=== PATIENT | female | born 1945 | race Caucasian/White ===

== ENCOUNTER 2017-04-28 10:29 | Emergency (ER) | payer MEDICARE, BC ==
[~2017-04-28] VITALS: Ht 152.4 cm; Wt 61.7 kg
[~2017-04-28 10:29] MED LIST: DULERA 200 MCG/13 GM; LOSARTAN POTAS100 MG PO; OMEPRAZOLE20 M1 PO; PROAIR HFA INH8.5 GM; VERAPAMIL ER120 M1 PO
[2017-04-28] MEDS ORDERED: DEXAMETHASONE SOD PHOS 10 MG/1 ML VIAL INJ ONE (11:30)
[2017-04-28] MEDS ORDERED: ALBUTEROL/IPRATROPIUM 3 ML NEB NEB ONE (11:30)
[2017-04-28] MEDS ORDERED: TRAMADOL HCL 50 MG TAB PO ONE (11:30)
[2017-04-28] MEDS ORDERED: KETOROLAC TROMETHAMINE 10 MG TAB PO ONE (11:30)
--- NOTE | 2017-04-28 12:29 | Diagnostic Imaging Report ---
CORRECTION Corrected on: 04/28/2017; Dictated by: Efrain Vicente M.D. on 04/28/2017 at 12:40 Electronically approved by: Efrain Vicente M.D. on 04/28/2017 at 12:40 PROCEDURE:CLAVICLE LEFT INDICATION:Status post fall, left-sided pain COMPARISON:DX, CHEST SINGLE (NOT PORTABLE), 10/24/2012, 13:33. FINDINGS: Acute, displaced oblique fracture of the mid clavicular diaphysis, with inferior displacement of the distal fracture fragment by approximately one shaft width. No definite a.c. separation. Glenohumeral joint is unremarkable. Decreased pulmonary station. Visualized portion of the left upper lobe is clear. CONCLUSION: 1. Acute displaced oblique fracture of the mid clavicular diaphysis with inferior displacement of the distal fracture fragment by approximately one shaft width. 2. Glenohumeral joint is unremarkable. 3. Generalized osteopenia. Efrain Vicente M.D. Dictated by: Efrain Vicente M.D. on 04/28/2017 at 12:37 Electronically approved by: Efrain Vicente M.D. on 04/28/2017 at 12:37
--- NOTE | 2017-04-28 12:31 | Diagnostic Imaging Report ---
PROCEDURE: Left shoulder films INDICATION: Status post fall, left-sided pain COMPARISON: DX, CHEST SINGLE (NOT PORTABLE), 10/24/2012, 13:33. FINDINGS: Acute, displaced oblique fracture of the mid clavicular diaphysis, with inferior displacement of the distal fracture fragment by approximately one shaft width. No definite a.c. separation. Glenohumeral joint is unremarkable. Decreased pulmonary station. Visualized portion of the left upper lobe is clear. CONCLUSION: 1. Acute displaced oblique fracture of the mid clavicular diaphysis with inferior displacement of the distal fracture fragment by approximately one shaft width. 2. Glenohumeral joint is unremarkable. 3. Generalized osteopenia. Efrain Vicente M.D. Dictated by: Efrain Vicente M.D. on 04/28/2017 at 12:40 Electronically approved by: Efrain Vicente M.D. on 04/28/2017 at 12:40
--- NOTE | 2017-04-28 12:36 | Diagnostic Imaging Report ---
PROCEDURE:X-RAY UNILATERAL RIBS WITH CHEST X-RAY COMPARISON:Patients [facility], DX, CHEST SINGLE (NOT PORTABLE), 10/24/2012, 13:33. INDICATIONS:FALL AND ANTERIOR LEFT SIDE PAIN FINDINGS: BONES:Decreased mineralization. No acute, displaced rib fracture or dislocation. SOFT TISSUES:Negative. OTHER:Mild coarsening of the interstitial markings and linear scarring, predominantly in the upper lobes, which is slightly more conspicuous than on prior exam and likely reflect COPD changes. No consolidation or effusion. Cardiac silhouette is unremarkable. Pulmonary vasculature is normal. Atherosclerotic calcification of the aortic arch. CONCLUSION: No acute, displaced rib fracture or dislocation. Decreased mineralization. COPD changes. Efrain Vicente M.D. Dictated by: Efrain Vicente M.D. on 04/28/2017 at 12:44 Electronically approved by: Efrain Vicente M.D. on 04/28/2017 at 12:44
[2017-04-28] MEDS ORDERED: ULTRAM 50MG50 MG PO (13:14)
[2017-04-28] MEDS ORDERED: MOBIC15 MG PO (13:14)
[2017-04-28 13:41] VITALS: BP 176/91
== END 2017-04-28 16:16 | disposition home or self-care (01) ==
LOC: ER 10:29
DX: S42.022A Displaced fracture of shaft of left clavicle, initial encounter for closed fracture (principal); S29.8XXA Other specified injuries of thorax, initial encounter; W01.0XXA Fall on same level from slipping, tripping and stumbling without subsequent striking against object, initial encounter; Y92.008 Other place in unspecified non-institutional (private) residence as the place of occurrence of the external cause
CPT/HCPCS: 71101; 73000; 73030; 94640; 99283; J1100

== ENCOUNTER 2018-11-03 20:29 | Inpatient (IN) | payer MEDICARE, BC ==
[~2018-11-03] VITALS: Ht 152.4 cm; Wt 59.4 kg
[~2018-11-03 20:29] MED LIST changes: +MOBIC15 MG PO; +ULTRAM 50MG50 MG PO
--- OUTSIDE RECORDS SUMMARY | 2018-11-03 20:31 | XMS REPORT ---
[facility] Address Unknown Phone Unavailable Care Team Providers Care Gettering Operator Name Role Phone Nisha ARSHAD Unavailable Unavailable Problems This patient has no known problems. Allergies, Adverse Reactions, Alerts This patient has no known allergies or adverse reactions. Medications This patient has no known medications. Results Test Description Test Time Test Comments Text Results Atomic Results Result Comments CLAVICLE LEFT [place] [address] Patient Name: HARRIS FREEDMAN MR #: [id number] : 1945 Age/Sex: 71/F Req #: [id number] Adm Physician: Ordered by: MAUREEN ARSHAD MD Report #: [id number] Location: ER Room/Bed: Procedure: [id number] DX/CLAVICLE LEFT Exam Date: 04/28/17 Exam Time: 1150 REPORT STATUS: Signed CORRECTION Corrected on: 04/28/2017; Dictated by: Puja Frost M.D. on 04/28/2017 at 12:40 Electronically approved by: Puja Frost M.D. on 04/28/2017 at 12:40 PROCEDURE: CLAVICLE LEFT INDICATION: Status post fall, left-sided pain COMPARISON: DX, CHEST SINGLE (NOT PORTABLE), 10/24/2012, 13:33. FINDINGS: Acute, displaced oblique fracture of the mid clavicular diaphysis, with inferior displacement of the distal fracture fragment by approximately one shaft width. No definite a.c. separation. Glenohumeral joint is unremarkable. Decreased pulmonary station. Visualized portion of the left upper lobe is clear. CONCLUSION: 1. Acute displaced oblique fracture of the mid clavicular diaphysis with inferior displacement of the distal fracture fragment by approximately one shaft width. 2. Glenohumeral joint is unremarkable. 3. Generalized osteopenia. Puja Frost M.D. Dictated by: Puja Frost M.D. on 04/28/2017 at 12:37 Electronically approved by: Puja Frost M.D. on 04/28/2017 at 12:37 Dictated By: PUJA FROST MD 1240 Transcribed By: JASS on 04/28/17 1240 COPY TO: MAUREEN ARSHAD MD SHOULDER LEFT COMPLETE [place] [address] Patient Name: HARRIS FREEDMAN MR #: [id number] : 1945 Age/Sex: 71/F Req #: [id number] Adm Physician: Ordered by: MAUREEN ARSHAD MD Report #: [id number] Location: ER Room/Bed: Procedure: [id number] DX/SHOULDER LEFT COMPLETE Exam Date: 04/28/17 Exam Time: 1150 REPORT STATUS: Signed PROCEDURE: Left shoulder films INDICATION: Status post fall, left-sided pain COMPARISON: DX, CHEST SINGLE (NOT PORTABLE), 10/24/2012, 13:33. FINDINGS: Acute, displaced oblique fracture of the mid clavicular diaphysis, with inferior displacement of the distal fracture fragment by approximately one shaft width. No definite a.c. separation. Glenohumeral joint is unremarkable. Decreased pulmonary station. Visualized portion of the left upper lobe is clear. CONCLUSION: 1. Acute displaced oblique fracture of the mid clavicular diaphysis with inferior displacement of the distal fracture fragment by approximately one shaft width. 2. Glenohumeral joint is unremarkable. 3. Generalized osteopenia. Puja Frost M.D. Dictated by: Puja Frost M.D. on 04/28/2017 at 12:40 Electronically approved by: Puja Frost M.D. on 04/28/2017 at 12:40 Dictated By: PUJA FROST MD 1240 Transcribed By: JASS on 04/28/17 1240 COPY TO: MAUREEN ARSHAD MD W/CXR [place] [address] Patient Name: HARRIS FREEDMAN MR #: [id number] : 1945 Age/Sex: 71/F Req #: [id number] Adm Physician: Ordered by: MAUREEN ARSHAD MD Report #: [id number] Location: ER Room/Bed: Procedure: [id number] DX/RIBJohn UNILAT W/CXR Exam Date: 04/28/17 Exam Time: 1150 REPORT STATUS: Signed PROCEDURE: X-RAY UNILATERAL RIBS WITH CHEST X-RAY COMPARISON: [facility], DX, CHEST SINGLE (NOT PORTABLE), 10/24/2012, 13:33. INDICATIONS: FALL AND ANTERIOR LEFT SIDE PAIN FINDINGS: BONES: Decreased mineralization. No acute, displaced rib fracture or dislocation. SOFT TISSUES: Negative. OTHER: Mild coarsening of the interstitial markings and linear scarring, predominantly in the upper lobes, which is slightly more conspicuous than on prior exam and likely reflect COPD changes. No consolidation or effusion. Cardiac silhouette is unremarkable. Pulmonary vasculature is normal. Atherosclerotic calcification of the aortic arch. CONCLUSION: No acute, displaced rib fracture or dislocation. Decreased mineralization. COPD changes. Puja Frost M.D. Dictated by: Puja Frots M.D. on 04/28/2017 at 12:44 Electronically approved by: Puja Frost M.D. on 04/28/2017 at 12:44 Dictated By: PUJA FROST MD 1244 Transcribed By: JASS on 04/28/17 1244 COPY TO: MAUREEN ARSHAD MD
[2018-11-03] MEDS ORDERED: ASPIRIN 81 MG CHEW TAB PO ONE (20:45)
--- NOTE | 2018-11-03 20:52 | NUR ---
RADIOLOGY AT BEDSIDE FOR CXR AT THIS TIME.
[2018-11-03 21:25] LABS: BASOPHILS % 0.7 % (0.0-1.0); EOSINOPHILS # (AUTO) 0.1 (0.0-0.4); HEMATOCRIT 48.4 % (34.2-44.1); HEMOGLOBIN 16.9 g/dL (12.0-16.0); LYMPHOCYTES # (AUTO) 1.1 (1.0-3.2); LYMPHOCYTES % 17.7 % (18.0-39.1); MEAN CORPUSCULAR HEMOGLOBIN 33.5 pg (28-32); MEAN CORPUSCULAR HGB CONC 34.9 g/dL (31-35); MEAN CORPUSCULAR VOLUME 95.8 fL (81-99); MONOCYTES # (AUTO) 0.7 (0.2-0.8); NEUTROPHILS # (AUTO) 4.2 (2.1-6.9); NEUTROPHILS % 69.4 % (38.7-80.0); PLATELET COUNT 202 x10e3/uL (140-360); RED BLOOD COUNT 5.05 x10e6/uL (3.6-5.1); RED CELL DISTRIBUTION WIDTH 12.3 % (11.7-14.4)
--- NOTE | 2018-11-03 21:25 | Diagnostic Imaging Report ---
EXAMINATION: CHEST SINGLE (PORTABLE) INDICATION: COPD. COMPARISON: None FINDINGS: TUBES and LINES: None. LUNGS: Lungs are well inflated. There are bibasilar atelectasis. There is mild prominence of the central pulmonary vasculature, consistent with pulmonary venous congestion. PLEURA: Small right and trace left pleural effusions. No pneumothorax. HEART AND MEDIASTINUM: Cardiac size is mildly enlarged. There are atherosclerotic calcifications within the aorta. BONES AND SOFT TISSUES: No acute osseous lesion. Remote displaced left clavicle fracture. UPPER ABDOMEN: No free air under the diaphragm. IMPRESSION: Mild bilateral pulmonary venous congestion. Bilateral pleural effusions. Signed by: Dr. Balaji Valencia M.D. on 11/03/2018 9:22 PM
[2018-11-03 21:44] LABS: INR 0.84
[2018-11-03 21:54] LABS: ALANINE AMINOTRANSFERASE 18 IU/L (0-55); ALBUMIN 3.1 g/dL (3.5-5.0); ALBUMIN/GLOBULIN RATIO 0.9 (0.8-2.0); ALKALINE PHOSPHATASE 57 IU/L (40-150); ANION GAP 13.2 mmol/L (8-16); BLOOD UREA NITROGEN 9 mg/dL (7-26); BUN/CREATININE RATIO 13 (6-25); CALCIUM 8.7 mg/dL (8.4-10.2); CARBON DIOXIDE 29 mmol/L (22-29); CHLORIDE 85 mmol/L (98-107); CREATINE KINASE 89 IU/L (29-168); CREATININE, SERUM 0.72 mg/dL (0.57-1.11); EST GLOMERULAR FILTRATION RATE > 60 ML/MIN (60-); GLUCOSE 94 mg/dL (74-118); POTASSIUM 4.2 mmol/L (3.5-5.1); SODIUM 123 mmol/L (136-145)
[2018-11-03] MEDS ORDERED: SODIUM CHLORIDE 0.9% 1000ML 1,000 ML IV SCH (22:15)
[2018-11-03] MEDS: SODIUM CHLORIDE 0.9% 1000ML 1,000 ML IV SCH (23:06)
[2018-11-03] MEDS: METHYLPREDNISOLONE SOD SUCC 40 MG/ML VIAL 1ML IV SCH (23:08)
[2018-11-03] MEDS: ALBUTEROL/IPRATROPIUM 3 ML NEB NEB SCH (23:28)
[2018-11-04] VITALS (10 sets, daily range): BP systolic 131–149; BP diastolic 71–81
[2018-11-04 00:40] LABS: ABG HCO3 29 mmol/L (23-28); ABG PCO2 46 mmHg (41-51); ABG PH 7.41 (7.31-7.41); ABG PO2 113 mmHg (80-105)
[2018-11-04] MEDS ORDERED: BREO (01:08)
[2018-11-04] MEDS ORDERED: PROAIR HFA INH8.5 GM (01:08)
[2018-11-04] MEDS ORDERED: VERAPAMIL ER120 MG (01:08)
[2018-11-04] MEDS ORDERED: TRIAMTERENE-HCTZ1 EA PO (01:08)
[2018-11-04] MEDS ORDERED: OYSCO 500+D TA1 EACH (01:08)
[2018-11-04] MEDS: ALBUTEROL/IPRATROPIUM 3 ML NEB NEB SCH ×6 (03:54→23:15)
[2018-11-04] MEDS: METHYLPREDNISOLONE SOD SUCC 40 MG/ML VIAL 1ML IV SCH ×3 (05:24→22:27)
--- NOTE | 2018-11-04 10:38 | NUR ---
patient reporting that dr. cates is her pulmonolgist that she sees at his office. dr jolly notified, ok to change consultation. dr aryan muse and dr cates made aware
[2018-11-04] MEDS: SODIUM CHLORIDE 0.9% 1000ML 1,000 ML IV SCH (10:47)
[2018-11-04] MEDS ORDERED: ALBUTEROL SULFATE HFA 8GM INHALATION AEROSOL INH PRN (13:00)
[2018-11-04] MEDS ORDERED: CLONIDINE HCL 0.2 MG TAB PO PRN (13:00)
[2018-11-04] MEDS ORDERED: FUROSEMIDE INJ 10 MG/ML 2 ML VIAL IV ONE (13:30)
--- NOTE | 2018-11-04 13:37 | Consultation ---
DATE OF CONSULTATION: Pulmonary Critical Care Consultation CHIEF COMPLAINT: Dyspnea and wheezing. HISTORY OF PRESENT ILLNESS: The patient is a 73-year-old woman. She has a history of chronic COPD. She recently had PFTs, that showed aiqesoox-yb-eyicbk obstructive lung disease. She had a cardiac evaluation about 6 months ago, that was within normal limits. She also has been complaining of continued leg swelling. She had venous Doppler studies as an outpatient, that were negative. She now complains of worsening dyspnea and wheezing. She has some cough, but no fevers. She also continue to have leg edema. When she came to the emergency department, she also had a low sodium. PAST SURGICAL HISTORY: Status post hernia repair. PAST MEDICAL HISTORY: 1. History of chronic obstructive pulmonary disease as noted above. 2. Hypertension. ALLERGIES: NO KNOWN DRUG ALLERGIES. SOCIAL HISTORY: The patient quit smoking. She is not an active drinker. FAMILY HISTORY: Family history is noncontributory. REVIEW OF SYSTEMS: The patient is afebrile. She has no headache. She is not having any neck pain. She has no swollen glands. She has no chest pain. She has no anterior chest pain. She does note wheezing and dyspnea. She has no abdominal pain. There is no nausea or vomiting. She does have leg edema. PHYSICAL EXAMINATION: VITAL SIGNS: The blood pressure is 138/78 and the saturation is 92% on 2 L, respiratory rate is 18, and the pulse is 86. HEENT: Shows no facial swelling or erythema. The nasal mucosa is normal. The oropharynx is normal. LYMPHATIC: Shows no submandibular, cervical, or supraclavicular adenopathy. CARDIAC: Reveals a regular rate and rhythm with normal S1, S2. There are no murmurs or rubs. LUNGS: Auscultation of lungs reveals a prolonged expiratory phase with wheezing. ABDOMEN: Soft, nontender. There is no rebound or guarding. EXTREMITIES: Shows 2 to 3+ leg edema. There is no tenderness. There is some mild erythema. LABORATORY DATA: Sodium is 123 and the BUN to creatinine ratio is normal. The BNP is 624. Laboratory studies are within normal limits. IMPRESSION: 1. Chronic obstructive pulmonary disease with acute exacerbation. 2. Hyponatremia. 3. Chronic leg edema, secondary to elevated right-sided pressures from chronic lung disease. 4. Cellulitis with sepsis, present on admission. PLAN: 1. Continue Solu-Medrol. 2. Antibiotics. 3. Elevate the legs. 4. Continue fluids, because of the elevated BNP and leg swelling. 5. Lasix x1 dose. 6. Echocardiogram. 7. Restart Breo and rescue inhaler at home. MD [place] Conway/DELFIN /[id number]
[2018-11-04] MEDS: DOXYCYCLINE 100MG/NS 100ML 100 ML IV SCH (14:37)
[2018-11-04] MEDS: ZOLPIDEM TARTRATE 5 MG TAB PO PRN (22:27)
--- NOTE | 2018-11-04 22:43 | History and Physical ---
CHIEF COMPLAINT: Ms. Munoz is a complex 73-year-old woman, who presented to the emergency room on the evening of the with a complaint of shortness of breath. HISTORY OF PRESENT ILLNESS: The patient is a poor historian and reports that she has noticed some ankle swelling for some weeks. Her doctors have not told her yet what this problem is and apparently I have ordered some studies. PAST MEDICAL HISTORY: Significant for long-standing COPD. She has known she had lung disease for more than five years. She reports that she smoked for 55 years and stopped smoking in 2008. She reports she then went back intermittently, but now has not smoked in some time. SURGICAL HISTORY: She reports she had remote inguinal hernia repair. HOME MEDICATIONS: For hypertension include losartan and verapamil. She uses inhalers. SOCIAL HISTORY: Smoking history as above. She lives alone. Reports she has a 30-year-old grandson, who lives with her and takes care of research animals at [facility]. REVIEW OF SYSTEMS: CARDIAC: The patient denies any knowledge of any cardiac problem and denies chest pain or palpitations. PHYSICAL EXAMINATION: GENERAL: At this time shows elderly white woman, who is alert and responsive, comfortable. VITAL SIGNS: Blood pressure 138/78, pulse 90 and regular. HEAD, EYES, EARS, NOSE, and THROAT: Otherwise, unremarkable. NECK: No jugular venous distention. No bruits. THORAX: Heart sounds S1, S2 are equal. No murmurs. LUNGS: Bilateral diffuse wheezing. ABDOMEN: Protuberant. Normal bowel sounds. EXTREMITIES: Have 4+ bilateral edema. PERTINENT LABORATORY STUDIES: Show sodium 123, BUN 9, creatinine 0.7, glucose 94, white count 6.0, hemoglobin 16.9. Chest x-ray suggests bilateral pulmonary congestion. BNP 624. ASSESSMENT: 1. Congestive heart failure. 2. Advanced severe chronic obstructive pulmonary disease. 3. Hypertension. PLAN: We will place the patient on diuretics and monitor her serum sodium, which is a nutritional problem. We will obtain echocardiogram and appreciate help from Dr. Rubi for chronic obstructive pulmonary disease management. Prognosis is guarded. MD ANUP Luke/DELFIN /[id number] cc: MD Fritz Ratliff MD
[2018-11-05] VITALS (9 sets, daily range): BP systolic 116–140; BP diastolic 54–88
[2018-11-05] MEDS: DOXYCYCLINE 100MG/NS 100ML 100 ML IV SCH ×2 (01:40→14:07)
[2018-11-05] MEDS: ALBUTEROL/IPRATROPIUM 3 ML NEB NEB SCH ×6 (03:00→22:48)
[2018-11-05 05:37] LABS: HEMATOCRIT 46.8 % (34.2-44.1); LYMPHOCYTES # (AUTO) 0.2 (1.0-3.2); LYMPHOCYTES % 1.9 % (18.0-39.1); MEAN CORPUSCULAR HEMOGLOBIN 32.9 pg (28-32); MEAN CORPUSCULAR HGB CONC 34.2 g/dL (31-35); MEAN CORPUSCULAR VOLUME 96.3 fL (81-99); MONOCYTES # (AUTO) 0.3 (0.2-0.8); MONOCYTES % 2.6 % (4.4-11.3); NEUTROPHILS # (AUTO) 9.4 (2.1-6.9); NEUTROPHILS % 95.1 % (38.7-80.0); PLATELET COUNT 154 x10e3/uL (140-360); RED BLOOD COUNT 4.86 x10e6/uL (3.6-5.1); RED CELL DISTRIBUTION WIDTH 12.3 % (11.7-14.4)
[2018-11-05 05:54] LABS: ALANINE AMINOTRANSFERASE 12 IU/L (0-55); ALBUMIN 2.3 g/dL (3.5-5.0); ALBUMIN/GLOBULIN RATIO 0.8 (0.8-2.0); ALKALINE PHOSPHATASE 48 IU/L (40-150); ANION GAP 11.3 mmol/L (8-16); BLOOD UREA NITROGEN 11 mg/dL (7-26); BUN/CREATININE RATIO 16 (6-25); CALCIUM 8.1 mg/dL (8.4-10.2); CARBON DIOXIDE 28 mmol/L (22-29); CHLORIDE 92 mmol/L (98-107); CREATININE, SERUM 0.68 mg/dL (0.57-1.11); EST GLOMERULAR FILTRATION RATE > 60 ML/MIN (60-); GLUCOSE 164 mg/dL (74-118); POTASSIUM 4.3 mmol/L (3.5-5.1); SODIUM 127 mmol/L (136-145)
[2018-11-05] MEDS: TRIAMTERENE/HCTZ 37.5-25 MG TAB PO SCH (06:09)
[2018-11-05] MEDS: METHYLPREDNISOLONE SOD SUCC 40 MG/ML VIAL 1ML IV SCH ×3 (06:09→21:40)
[2018-11-05 07:49] LABS: LYMPHOCYTES % (MANUAL) 1 % (19-48); MONOCYTES % (MANUAL) 1 % (3.4-9.0); NEUTROPHILS % (MANUAL) 98 % (40-74)
[2018-11-05 07:55] LABS: PLATELET ESTIMATE ADEQUATE; PLATELET MORPHOLOGY COMMENT NORMAL; RBC MORPHOLOGY COMMENT NORMAL
[2018-11-05] MEDS: LOSARTAN POTASSIUM 100 MG TAB PO SCH (09:00)
[2018-11-05] MEDS: VERAPAMIL HCL 120 MG TABSR PO SCH (09:31)
[2018-11-05] MEDS: FUROSEMIDE 40 MG TAB PO SCH (09:32)
[2018-11-05] MEDS: PANTOPRAZOLE SOD 40 MG TABEC PO SCH (09:32)
--- NOTE | 2018-11-05 17:00 | NUR ---
Patient continued to refuse taking the Losartan, even after Dr. Mcclellan explained to patient about the recall only on certain lot numbers.
--- NOTE | 2018-11-05 18:02 | Progress Note ---
DATE: SUBJECTIVE: The patient has less wheezing. She has less dyspnea. She feels better today. PHYSICAL EXAMINATION: VITAL SIGNS: The blood pressure is 130/84 and the saturation is 90%. HEENT: Shows no facial swelling or erythema. CARDIAC: Reveals regular rate and rhythm with a normal S1 and S2. PULMONARY: Auscultation of lungs reveal prolonged expiratory phase bilaterally with minimal wheezing. ABDOMEN: Soft and nontender. There is no rebound or guarding. EXTREMITIES: Show no tenderness. There is some leg edema present, although it is decreased from previously. IMPRESSION: 1. Chronic obstructive pulmonary disease with acute exacerbation. 2. Hyponatremia. 3. Cellulitis with sepsis, present on admission. 4. Acute on chronic right-sided congestive heart failure. PLAN: 1. Wean Solu-Medrol. 2. Continue to wean oxygen. 3. Continue bronchodilators. 4. Continue Lasix. 5. Await results of echocardiogram. 6. Fluid restriction and monitoring of sodium. Fritz Rubi MD [facility]/MODL /[id number]
--- NOTE | 2018-11-05 18:50 | NUR ---
Walking rounds done and report given to oncoming shift. call miller within reach and bed alarm on.
[2018-11-06] VITALS (9 sets, daily range): BP systolic 110–160; BP diastolic 62–93
[2018-11-06] MEDS: ZOLPIDEM TARTRATE 5 MG TAB PO PRN ×2 (01:17→23:44)
[2018-11-06] MEDS: DOXYCYCLINE 100MG/NS 100ML 100 ML IV SCH ×2 (01:26→13:19)
[2018-11-06] MEDS: ALBUTEROL/IPRATROPIUM 3 ML NEB NEB SCH ×6 (04:00→23:05)
[2018-11-06 05:13] LABS: BASOPHILS # (AUTO) 0.1 (0.0-0.1); BASOPHILS % 0.5 % (0.0-1.0); EOSINOPHILS # (AUTO) 0.1 (0.0-0.4); EOSINOPHILS % 0.5 % (0.0-6.0); HEMATOCRIT 49.2 % (34.2-44.1); HEMOGLOBIN 16.9 g/dL (12.0-16.0); LYMPHOCYTES # (AUTO) 0.3 (1.0-3.2); LYMPHOCYTES % 2.4 % (18.0-39.1); MEAN CORPUSCULAR HEMOGLOBIN 33.3 pg (28-32); MEAN CORPUSCULAR HGB CONC 34.3 g/dL (31-35); MEAN CORPUSCULAR VOLUME 96.9 fL (81-99); MONOCYTES # (AUTO) 0.3 (0.2-0.8); MONOCYTES % 2.9 % (4.4-11.3); NEUTROPHILS # (AUTO) 10.2 (2.1-6.9); NEUTROPHILS % 93.2 % (38.7-80.0); PLATELET COUNT 165 x10e3/uL (140-360); RED BLOOD COUNT 5.08 x10e6/uL (3.6-5.1); RED CELL DISTRIBUTION WIDTH 12.4 % (11.7-14.4)
--- NOTE | 2018-11-06 05:27 | NUR ---
Patient connected to BIPAP at this time. Will continue to monitor.
[2018-11-06 05:34] LABS: ALANINE AMINOTRANSFERASE 14 IU/L (0-55); ALBUMIN 2.6 g/dL (3.5-5.0); ALBUMIN/GLOBULIN RATIO 0.8 (0.8-2.0); ALKALINE PHOSPHATASE 49 IU/L (40-150); ANION GAP 14.6 mmol/L (8-16); BLOOD UREA NITROGEN 16 mg/dL (7-26); BUN/CREATININE RATIO 21 (6-25); CALCIUM 8.2 mg/dL (8.4-10.2); CARBON DIOXIDE 28 mmol/L (22-29); CHLORIDE 89 mmol/L (98-107); CREATININE, SERUM 0.77 mg/dL (0.57-1.11); EST GLOMERULAR FILTRATION RATE > 60 ML/MIN (60-); GLUCOSE 156 mg/dL (74-118); POTASSIUM 3.6 mmol/L (3.5-5.1); SODIUM 128 mmol/L (136-145)
[2018-11-06] MEDS: TRIAMTERENE/HCTZ 37.5-25 MG TAB PO SCH (05:43)
--- NOTE | 2018-11-06 06:52 | Diagnostic Imaging Report ---
EXAMINATION: CHEST SINGLE (PORTABLE) INDICATION: ^COPD / PLEURAL EFFUSION COMPARISON: 11/03/2018 FINDINGS: AP view TUBES and LINES: None. LUNGS: Lungs are well inflated. Mild to moderate interstitial edema, slightly increased from prior exam.. PLEURA: No pneumothorax. Moderate size right and small left pleural effusions, increased from prior exam. HEART AND MEDIASTINUM: The cardiac silhouette is partially obscured. BONES AND SOFT TISSUES: No acute osseous lesion. Soft tissues are unremarkable. UPPER ABDOMEN: No free air under the diaphragm. IMPRESSION: Pulmonary edema and bilateral pleural effusions, slightly increased when compared to prior x-ray. Signed by: Dr. Bert Brooks MD on 11/06/2018 6:49 AM
--- NOTE | 2018-11-06 07:07 | NUR ---
Report given to AM nurse Jez,walking round done.
[2018-11-06] MEDS: LOSARTAN POTASSIUM 100 MG TAB PO SCH (08:31)
[2018-11-06] MEDS: METHYLPREDNISOLONE SOD SUCC 40 MG/ML VIAL 1ML IV SCH ×2 (08:31→22:07)
[2018-11-06] MEDS: FUROSEMIDE 40 MG TAB PO SCH (08:31)
[2018-11-06] MEDS: PANTOPRAZOLE SOD 40 MG TABEC PO SCH (08:31)
[2018-11-06] MEDS: VERAPAMIL HCL 120 MG TABSR PO SCH (08:31)
--- NOTE | 2018-11-06 08:31 | NUR ---
Patient placed back on BiPap at this time.
[2018-11-06 08:42] LABS: LYMPHOCYTES % (MANUAL) 4 % (19-48); MONOCYTES % (MANUAL) 2 % (3.4-9.0); NEUTROPHILS % (MANUAL) 94 % (40-74)
[2018-11-06 08:43] LABS: POIKILOCYTOSIS SLIGHT
[2018-11-06 08:44] LABS: ANISOCYTOSIS MODERATE; PLATELET ESTIMATE ADEQUATE; PLATELET MORPHOLOGY COMMENT NORMAL; RBC MORPHOLOGY COMMENT ABNORMAL
--- NOTE | 2018-11-06 10:10 | NUR ---
Patient requesting BiPap be removed at this time and be changed to hiflow O2. Patient made aware of benefits of BiPap but states she needs a break. Patient states she might be discharged today but patient seems to be very short of breath without BiPap.
--- NOTE | 2018-11-06 10:26 | NUR ---
Patient sitting up in chair as requested. Instructed to use call light if she needed anything.
--- NOTE | 2018-11-06 11:04 | NUR ---
Dr. Mcclellan here to see patient. Patient placed back in bed and placed on BiPap at this time.
--- NOTE | 2018-11-06 12:19 | NUR ---
Spoke to [employer] [facility] regarding IR consult and informed that procedure to be done today.
--- NOTE | 2018-11-06 14:56 | NUR ---
PT DISCUSSED IN BARRIER ROUNDS; BILATERAL PE, AND LOWER BILAT SWELLING, THORA CONSULT, ON YADI MED, LASIX, WEAN FROM O2 ON HIGH FLOW 10 LITERS AND BIPAP AT NIGHT, FLUID RESTRICTION, PROJECTED DC FOR 25TH
--- NOTE | 2018-11-06 16:17 | NUR ---
Per Dr. Rubi, no cytology orders needed for thoracentesis. Patient tolerated procedure well and 1050 mL removed. Post cxr ordered per protocol.
--- NOTE | 2018-11-06 16:19 | NUR ---
Okay to remove JIMBO tovare per Dr. Rubi.
--- NOTE | 2018-11-06 17:05 | Diagnostic Imaging Report ---
PROCEDURE: Ultrasound-guided therapeutic thoracentesis Procedural Personnel Attending physician(s): Lita Tavarez MD Fellow physician(s): None Resident physician(s): None Advanced practice provider(s): None Pre-procedure diagnosis: Right pleural effusion Post-procedure diagnosis: Same Indication: Pleural effusion with compromised respiration Additional clinical history: None Complications: No immediate complications. IMPRESSION: Ultrasound-guided thoracentesis with drainage of 1050 mL of serous fluid. Plan: Post-procedural chest radiograph. Resume care by clinical team. PROCEDURE SUMMARY: - Limited thoracic ultrasound - Ultrasound-guided thoracentesis - Additional procedure(s): None PROCEDURE DETAILS: Pre-procedure Consent: Informed consent for the procedure including risks, benefits and alternatives was obtained and time-out was performed prior to the procedure. Preparation: The site was prepared and draped using maximal sterile barrier technique including cutaneous antisepsis. Anesthesia/sedation Level of anesthesia/sedation: No sedation Anesthesia/sedation administered by: Not applicable Limited thoracic ultrasound Limited thoracic ultrasound was performed using a curved transducer. A safe window for thoracentesis was identified. Left hemithorax findings: Not investigated Right hemithorax findings: Moderate pleural effusion Thoracentesis Local anesthesia was administered. The pleural space was accessed under real-time ultrasound guidance and fluid return confirmed position. The fluid was drained. The catheter was removed, and a sterile bandage was applied. Catheter placed: 5F Jamiaeh Post-drainage hemithorax findings: No visible pleural effusion Additional Details Additional description of procedure: None Equipment details: None Specimens removed: Pleural fluid Estimated blood loss (mL): Less than 10 Standardized report: [id number] Attestation Signer name: Lita Tavarez MD I attest that I was present for the entire procedure. I reviewed the stored images and agree with the report as written. Signed by: Lita Tavarez MD on 11/06/2018 5:01 PM
--- NOTE | 2018-11-06 17:08 | Diagnostic Imaging Report ---
EXAMINATION: CHEST SINGLE (PORTABLE) INDICATION: Status post thoracentesis, evaluate for pneumothorax COMPARISON: Chest radiograph of 11/06/2018 FINDINGS: TUBES and LINES: EKG leads overlie the right chest. LUNGS: The lungs are moderately inflated. There is perihilar fullness and indistinctness of the pulmonary vasculature. Patchy bibasilar opacities obscure both hemidiaphragms. PLEURA: Interval decrease in previously moderate right pleural effusion. Small residual bilateral pleural effusions. No pneumothorax. HEART AND MEDIASTINUM: Cardiomediastinal silhouette is stably enlarged. Atherosclerotic calcifications of the thoracic aorta. BONES AND SOFT TISSUES: Old fracture deformity of the left clavicle. No acute fracture or dislocation. UPPER ABDOMEN: No free air under the diaphragm. IMPRESSION: Interval decrease in right pleural effusion status post thoracentesis. No pneumothorax. Small residual bilateral pleural effusions. Unchanged pulmonary edema and cardiomegaly. Signed by: Lita Tavarez MD on 11/06/2018 5:04 PM
--- NOTE | 2018-11-06 17:14 | Progress Note ---
DATE: SUBJECTIVE: The patient just had a thoracentesis done. Over 1000 mL were removed. She notes some improvement in her dyspnea. PHYSICAL EXAMINATION: VITAL SIGNS: Stable. The blood pressure is 125/62 and the saturation is 94%. HEENT: Shows no facial swelling or erythema. The oropharynx is normal. LYMPHATIC: Shows no submandibular, cervical, or supraclavicular adenopathy. CARDIAC: Reveals regular rate and rhythm with normal S1, S2. There are no murmurs or rubs. LUNGS: Auscultation of lungs reveals decreased breath sounds at bases. There is no wheezing. ABDOMEN: Soft, nontender. There is no rebound or guarding. EXTREMITIES: There is 2+ leg edema. IMPRESSION: 1. Acute systolic congestive heart failure. 2. Chronic obstructive pulmonary disease with acute exacerbation. 3. Hyponatremia. 4. Cellulitis with sepsis, present on admission. PLAN: 1. Continue Solu-Medrol and bronchodilators. 2. Status post thoracentesis. 3. Continue Lasix along with afterload reduction and verapamil. Fritz Rubi MD [facility]/MODL /[id number]
--- NOTE | 2018-11-06 19:06 | NUR ---
Walking rounds with Car. Patient resting with no distress.
[2018-11-07] VITALS (9 sets, daily range): BP systolic 118–148; BP diastolic 54–97
[2018-11-07] MEDS: DOXYCYCLINE 100MG/NS 100ML 100 ML IV SCH ×2 (02:35→14:00)
[2018-11-07] MEDS: ALBUTEROL/IPRATROPIUM 3 ML NEB NEB SCH ×6 (03:35→23:00)
[2018-11-07 05:51] LABS: HEMATOCRIT 46.2 % (34.2-44.1); HEMOGLOBIN 16.1 g/dL (12.0-16.0); LYMPHOCYTES # (AUTO) 0.2 (1.0-3.2); LYMPHOCYTES % 2.5 % (18.0-39.1); MEAN CORPUSCULAR HEMOGLOBIN 33.1 pg (28-32); MEAN CORPUSCULAR HGB CONC 34.8 g/dL (31-35); MEAN CORPUSCULAR VOLUME 95.1 fL (81-99); MONOCYTES # (AUTO) 0.2 (0.2-0.8); MONOCYTES % 3.3 % (4.4-11.3); NEUTROPHILS # (AUTO) 5.8 (2.1-6.9); NEUTROPHILS % 93.9 % (38.7-80.0); PLATELET COUNT 145 x10e3/uL (140-360); RED BLOOD COUNT 4.86 x10e6/uL (3.6-5.1); RED CELL DISTRIBUTION WIDTH 12.4 % (11.7-14.4)
[2018-11-07] MEDS: TRIAMTERENE/HCTZ 37.5-25 MG TAB PO SCH (06:03)
[2018-11-07 06:21] LABS: ALANINE AMINOTRANSFERASE 14 IU/L (0-55); ALBUMIN 2.3 g/dL (3.5-5.0); ALBUMIN/GLOBULIN RATIO 0.9 (0.8-2.0); ALKALINE PHOSPHATASE 36 IU/L (40-150); ANION GAP 10.6 mmol/L (8-16); BLOOD UREA NITROGEN 17 mg/dL (7-26); BUN/CREATININE RATIO 26 (6-25); CALCIUM 7.7 mg/dL (8.4-10.2); CARBON DIOXIDE 31 mmol/L (22-29); CHLORIDE 89 mmol/L (98-107); CREATININE, SERUM 0.66 mg/dL (0.57-1.11); EST GLOMERULAR FILTRATION RATE > 60 ML/MIN (60-); GLUCOSE 185 mg/dL (74-118); POTASSIUM 3.6 mmol/L (3.5-5.1); SODIUM 127 mmol/L (136-145)
--- NOTE | 2018-11-07 06:59 | NUR ---
patient endorsed to next shift for continuity of care.
--- NOTE | 2018-11-07 07:10 | NUR ---
Pt received resting in bed. Alert and oriented x4. On BIPAP. Oriented to staff and surroundings. Encouraged to press call miller if help needed. Emotional support given. Pt verbalized understanding of teaching. Will monitor
[2018-11-07] MEDS: VERAPAMIL HCL 120 MG TABSR PO SCH (08:29)
[2018-11-07] MEDS: LOSARTAN POTASSIUM 100 MG TAB PO SCH (08:29)
[2018-11-07] MEDS: METHYLPREDNISOLONE SOD SUCC 40 MG/ML VIAL 1ML IV SCH ×2 (08:29→20:33)
[2018-11-07] MEDS: FUROSEMIDE 40 MG TAB PO SCH (08:29)
[2018-11-07] MEDS: PANTOPRAZOLE SOD 40 MG TABEC PO SCH (08:29)
--- NOTE | 2018-11-07 08:30 | NUR ---
All meds given as ordered. Call miller within reach. Will monitor
--- NOTE | 2018-11-07 09:45 | NUR ---
Pt requesting to sit in recliner. sats 89-90%. Pt stated that it would help her breathe better. Assisted pt into recliner, and sats 80-81%. Pt placed back into bed. BIPAP placed on pt, and sats 99%. Will monitor
[2018-11-07 09:59] LABS: LYMPHOCYTES % (MANUAL) 5 % (19-48); MONOCYTES % (MANUAL) 3 % (3.4-9.0); NEUTROPHILS % (MANUAL) 92 % (40-74); RBC MORPHOLOGY COMMENT NORMAL
[2018-11-07 10:00] LABS: PLATELET ESTIMATE ADEQUATE; PLATELET MORPHOLOGY COMMENT NORMAL
--- NOTE | 2018-11-07 13:37 | Progress Note ---
DATE: SUBJECTIVE: The patient still has some dyspnea on exertion. She still is requiring 8 L of oxygen. She does not complain of chest pain or fevers. PHYSICAL EXAMINATION: VITAL SIGNS: The blood pressure is 119/73. HEENT: No facial swelling or erythema. CARDIAC: Reveals regular rate and rhythm with normal S1 and S2. There are no murmurs or rubs heard. LUNGS: Auscultation of lungs shows prolonged expiratory phase bilaterally. There is no wheezing. ABDOMEN: Soft, nontender. There is no rebound or guarding. EXTREMITIES: There is 1 to 2+ leg edema. IMPRESSION: 1. Bxoyp-si-allrhvz systolic congestive heart failure. 2. Vaoaq-kz-wosjsnd respiratory failure. 3. Hyponatremia. 4. Leg edema. 5. Cellulitis. PLAN: 1. CT scan of the chest with pulmonary angiogram protocol today. 2. Wean oxygen as tolerated. 3. Continue bronchodilators. 4. Continue Solu-Medrol. 5. Continue current cardiac regimen. 6. The patient will need a noninvasive ventilator arranged on discharge. Fritz Rubi MD [facility]/SAKSHIL /[id number]
--- NOTE | 2018-11-07 14:23 | Diagnostic Imaging Report ---
EXAMINATION: CHEST SINGLE (PORTABLE) INDICATION: Dyspnea COMPARISON: Multiple prior chest radiograph, most recently of 11/06/2018 FINDINGS: TUBES and LINES: EKG leads overlie the thorax. LUNGS: The lungs are moderately inflated. There is perihilar fullness and indistinctness of the pulmonary vasculature. There is left basilar opacity silhouetting the left dayron diaphragm. PLEURA: Small left pleural effusion. No substantial right pleural effusion. No pneumothorax. HEART AND MEDIASTINUM: Cardiomediastinal silhouette is stably enlarged. Atherosclerotic calcifications of the thoracic aorta. BONES AND SOFT TISSUES: No acute fracture or dislocation. UPPER ABDOMEN: No free air under the diaphragm. IMPRESSION: Mild pulmonary interstitial edema and unchanged cardiomegaly. Small left pleural effusion. No substantial right pleural effusion. No pneumothorax. Airspace opacity at the left lung base may represent subsegmental atelectasis or alternatively superimposed aspiration and/or pneumonia. Signed by: Lita Tavarez MD on 11/07/2018 2:20 PM
--- NOTE | 2018-11-07 15:03 | NUR ---
Escorted pt to CT chest due to periods of desaturation. Dr. Rubi notified. Order given for VQ scan
--- NOTE | 2018-11-07 15:06 | NUR ---
IV contrast added to Allergy list. Will monitor
--- NOTE | 2018-11-07 21:54 | NUR ---
Patient refused VQ scan vent & perfusion at this time. Patient stated that " I am feeling so tired, I want to sleep at his time and I will do tomorrow morning."
[2018-11-08] MEDS: DOXYCYCLINE 100MG/NS 100ML 100 ML IV SCH ×2 (01:23→13:49)
[2018-11-08] MEDS: ALBUTEROL/IPRATROPIUM 3 ML NEB NEB SCH ×6 (02:45→23:00)
[2018-11-08 04:47] VITALS: BP 143/94
[2018-11-08 05:39] LABS: BASOPHILS % 0.2 % (0.0-1.0); EOSINOPHILS % 0.4 % (0.0-6.0); HEMATOCRIT 50.3 % (34.2-44.1); HEMOGLOBIN 16.9 g/dL (12.0-16.0); LYMPHOCYTES # (AUTO) 0.2 (1.0-3.2); LYMPHOCYTES % 4.3 % (18.0-39.1); MEAN CORPUSCULAR HEMOGLOBIN 32.9 pg (28-32); MEAN CORPUSCULAR HGB CONC 33.6 g/dL (31-35); MEAN CORPUSCULAR VOLUME 97.9 fL (81-99); MONOCYTES # (AUTO) 0.2 (0.2-0.8); MONOCYTES % 4.5 % (4.4-11.3); NEUTROPHILS # (AUTO) 4.3 (2.1-6.9); NEUTROPHILS % 89.8 % (38.7-80.0); PLATELET COUNT 147 x10e3/uL (140-360); RED BLOOD COUNT 5.14 x10e6/uL (3.6-5.1); RED CELL DISTRIBUTION WIDTH 12.6 % (11.7-14.4)
[2018-11-08] MEDS: TRIAMTERENE/HCTZ 37.5-25 MG TAB PO SCH (05:50)
--- NOTE | 2018-11-08 06:50 | NUR ---
Pt received resting in bed. Call miller within reach. Oxygen at 4L nasal cannula ongoing. Will monitor
--- NOTE | 2018-11-08 06:52 | NUR ---
Report given to oncoming LIBRADO Tate. NO issued noted.
[2018-11-08 06:57] LABS: ANION GAP 13.7 mmol/L (8-16); BLOOD UREA NITROGEN 20 mg/dL (7-26); BUN/CREATININE RATIO 27 (6-25); CALCIUM 7.9 mg/dL (8.4-10.2); CARBON DIOXIDE 31 mmol/L (22-29); CHLORIDE 89 mmol/L (98-107); CREATININE, SERUM 0.74 mg/dL (0.57-1.11); EST GLOMERULAR FILTRATION RATE > 60 ML/MIN (60-); GLUCOSE 153 mg/dL (74-118); POTASSIUM 3.7 mmol/L (3.5-5.1); SODIUM 130 mmol/L (136-145)
[2018-11-08 07:15] VITALS: BP 160/93
[2018-11-08] MEDS: PANTOPRAZOLE SOD 40 MG TABEC PO SCH (08:18)
[2018-11-08] MEDS: FUROSEMIDE 40 MG TAB PO SCH (08:18)
[2018-11-08] MEDS: VERAPAMIL HCL 120 MG TABSR PO SCH (08:18)
[2018-11-08] MEDS: LOSARTAN POTASSIUM 100 MG TAB PO SCH (08:18)
[2018-11-08] MEDS: METHYLPREDNISOLONE SOD SUCC 40 MG/ML VIAL 1ML IV SCH ×2 (08:18→20:43)
--- NOTE | 2018-11-08 08:18 | NUR ---
All meds given as ordered. Call miller within reach. Will monitor
[2018-11-08 08:20] LABS: LYMPHOCYTES % (MANUAL) 3 % (19-48); MONOCYTES % (MANUAL) 6 % (3.4-9.0); NEUTROPHILS % (MANUAL) 91 % (40-74); PLATELET ESTIMATE ADEQUATE; PLATELET MORPHOLOGY COMMENT NORMAL; RBC MORPHOLOGY COMMENT NORMAL
[2018-11-08 11:10] VITALS: BP 144/78
--- NOTE | 2018-11-08 13:29 | NUR ---
PT DISCUSSED IN BARRIER ROUNDS;PT ON 4 LITERS NASAL CANULA, VC SCAN TO RULE OUT PE, SODIUM LOW, STILL DESAT TO 75%, AND HGB 16.9
--- NOTE | 2018-11-08 14:20 | Diagnostic Imaging Report ---
Ventilation/perfusion lung scan Clinical Information: 73 F with COPD and hyponatremia with acute onset SOB. Comparison: Chest radiograph 11/07/2018 Discussion: Xenon-133 gas 20 mCi was administered via inhalation. Dynamic images of the lungs in the posterior projection were obtained through single breath, equilibrium, and washout phases. Distribution of tracer activity is irregular throughout the lungs. There are no segmental ventilatory defects. Washout of tracer is markedly delayed throughout both lungs with severe bibasilar air trapping. Perfusion images of the lungs were obtained in multiple projections following intravenous administration of approximately 6.6 mCi of Tc-99m MAA. Distribution of tracer is irregular throughout the lungs. The contours of the lungs are well demarcated. There are no segmental perfusion defects of any size. A small nonsegmental defect is seen in the apicoposterior segment of the left lung, most likely a metallic artifact. The cardiomediastinal silhouette is unremarkable. Impression: Scan findings represent a VERY LOW probability for acute pulmonary embolic disease based on the PIOPED II criteria. Scan evidence of severe obstructive lung disease. Signed by: Dr. Baylee Morgan M.D. on 11/08/2018 2:17 PM
--- NOTE | 2018-11-08 14:30 | NUR ---
VQ scan negative. Will monitor
[2018-11-08 16:30] VITALS: BP 158/59
--- NOTE | 2018-11-08 18:54 | NUR ---
Pt resting in bed. Handoff given to oncoming nurse
--- NOTE | 2018-11-08 19:34 | Progress Note ---
DATE: SUBJECTIVE: The patient feels better than yesterday. She has less dyspnea. She does not complain of chest pain. She has left leg swelling. PHYSICAL EXAMINATION: VITAL SIGNS: The patient is afebrile. The blood pressure is 144/78 and saturation is 97% on 4 L. HEENT: Shows no facial swelling or erythema. CARDIAC: Reveals a regular rate and rhythm with normal S1 and S2. LUNGS: Auscultation of lungs reveals clear breath sounds bilaterally. There is a prolonged expiratory phase. ABDOMEN: Soft, nontender. There is no rebound or guarding. EXTREMITIES: Shows 1 to 2+ leg edema. IMPRESSION: 1. Yzefl-eq-madsuoc systolic congestive heart failure. 2. Tccsu-fg-fhgjidp respiratory failure. 3. Chronic obstructive pulmonary disease. 4. Hyponatremia. 5. Leg edema. PLAN: 1. Wean oxygen, as tolerated. 2. Wean steroids. 3. Continue bronchodilators. 4. Possible discharge home tomorrow. MD [place] Conway/DELFIN /[id number]
[2018-11-08 19:46] VITALS: BP 154/80
[2018-11-08 19:47] VITALS: BP 154/80
[2018-11-09 00:16] VITALS: BP 152/77
[2018-11-09] MEDS: DOXYCYCLINE 100MG/NS 100ML 100 ML IV SCH (01:21)
[2018-11-09] MEDS: ALBUTEROL/IPRATROPIUM 3 ML NEB NEB SCH ×3 (03:00→11:35)
[2018-11-09 04:37] VITALS: BP 140/66
[2018-11-09] MEDS: TRIAMTERENE/HCTZ 37.5-25 MG TAB PO SCH (06:14)
[2018-11-09 07:45] VITALS: BP 140/66
[2018-11-09] MEDS: VERAPAMIL HCL 120 MG TABSR PO SCH (08:13)
[2018-11-09] MEDS: FUROSEMIDE 40 MG TAB PO SCH (08:13)
[2018-11-09] MEDS: METHYLPREDNISOLONE SOD SUCC 40 MG/ML VIAL 1ML IV SCH (08:13)
[2018-11-09] MEDS: PANTOPRAZOLE SOD 40 MG TABEC PO SCH (08:13)
--- NOTE | 2018-11-09 11:05 | NUR ---
Dr. Mcclellan making rounds. Patient may be discharged if okay with Dr. Rubi.
--- NOTE | 2018-11-09 11:05 | NUR ---
IMM SIGNED AND ON CHART COPY LEFT WITH PATIENT GAVE CARD FOR QUESTIONS AND OR CONCERNS.
[2018-11-09 12:00] VITALS: BP 139/83
--- NOTE | 2018-11-09 12:00 | NUR ---
Dr. Rubi making rounds. Per MD patient may be discharged home. Patient has home O2 already.
[2018-11-09] MEDS: LOSARTAN POTASSIUM 100 MG TAB PO SCH (12:15)
[2018-11-09] MEDS ORDERED: LASIX40 MG PO (13:37)
[2018-11-09] MEDS ORDERED: PREDNISONE20 MG PO (13:38)
--- NOTE | 2018-11-09 13:39 | Progress Note ---
DATE: SUBJECTIVE: The patient feels better and is very eager to go home. She has less coughing. She is not complaining of fever or chest pain. PHYSICAL EXAMINATION: VITAL SIGNS: Stable. HEENT: Shows no facial swelling or erythema. The nasal mucosa is normal. CARDIAC: Reveals a regular rate and rhythm with normal S1, S2. There are no murmurs or rubs heard. LUNGS: Auscultation of lungs reveals clear breath sounds bilaterally. There is no wheezing. ABDOMEN: Soft, nontender. There is no rebound or guarding. EXTREMITIES: Show no leg edema or calf tenderness. There is no cyanosis or clubbing. IMPRESSION: 1. Yxrfw-vb-vhfuogj respiratory failure. 2. Chronic obstructive pulmonary disease. 3. Nvdqz-gg-qblvwok systolic congestive heart failure. 4. Hyponatremia. PLAN: 1. Discharge the patient home. 2. Steroid taper. 3. Continue Breo daily with rescue inhaler and nebulizer as needed. 4. The patient has oxygen to a portable concentrator at home and is awaiting a stationary concentrator through [facility] as well. Fritz Rubi MD [facility]/MODL /[id number]
--- NOTE | 2018-11-09 13:42 | NUR ---
PROVIDED PT WITH ROLLING WALKER TO TAKE HOME
--- NOTE | 2018-11-09 14:14 | NUR ---
Patient discharged home with written instructions and prescriptions. CM provided walker for home use. Daughter brought home O2 and will provide ride home. Both patient and daughter verbalized understanding on discharge instructions and follow up care. IV dc'd, cath intact and some dressing applied.
--- NOTE | 2018-11-10 04:53 | Discharge Summary ---
HISTORY: Ms. Munoz is a complex and elderly 73-year-old woman with an end-stage lung disease, who presented on the with shortness of breath requiring CPAP support. HOSPITAL COURSE: The patient had 4+ edema of both legs not completed outpatient evaluation with other doctors. She was given IV Lasix and broad-spectrum antibiotics, doxycycline. She was given bronchodilators and intermittent CPAP support. Echocardiogram showed abnormal left ventricular function, EF 30-35%, mildly dilated right ventricle, right ventricular systolic pressure, estimated of 47 mmHg. The patient made very slow progress with bilateral rhonchi and wheezing. She had a V/Q scan which was low probability. Today, the patient is feeling some better and insisted on being discharged to home. She has completed seven days of antibiotics. She is discharged to add furosemide 40 mg daily as her edema has resolved and she will continue bronchodilators and other medications were ordered by Dr. Rubi. She will follow up with Dr. Rubi, Dr. French as an outpatient. DISCHARGE DIAGNOSES: 1. End-stage lung disease. 2. Congestive heart failure. 3. Hypertension. 4. Possible bronchitis. MD ANUP Luke/DELFIN /[id number] cc: MD Willie Geronimo MD
== END 2018-11-09 15:29 | disposition home or self-care (01) | DRG 871 ==
LOC: ER 20:29 → ERHOLD 22:24 → IMCU 11-04 00:46
PROVIDERS: ADMIT Internal Medicine Cardiovascular Disease; ATTEND Internal Medicine Cardiovascular Disease
PROC: 0W993ZZ Drainage of Right Pleural Cavity, Percutaneous Approach (ICD-10-PCS; principal; 2018-11-03)
PROC: 0W993ZZ Drainage of Right Pleural Cavity, Percutaneous Approach (ICD-10-PCS; 2018-11-06)
DX: A41.9 Sepsis, unspecified organism (principal); I50.23 Acute on chronic systolic (congestive) heart failure; J96.20 Acute and chronic respiratory failure, unspecified whether with hypoxia or hypercapnia; J44.1 Chronic obstructive pulmonary disease with (acute) exacerbation; E87.1 Hypo-osmolality and hyponatremia; L03.116 Cellulitis of left lower limb; L03.115 Cellulitis of right lower limb; J44.0 Chronic obstructive pulmonary disease with (acute) lower respiratory infection; I11.0 Hypertensive heart disease with heart failure; Z88.2 Allergy status to sulfonamides; Z91.041 Radiographic dye allergy status; I44.7 Left bundle-branch block, unspecified; Z87.891 Personal history of nicotine dependence; J20.9 Acute bronchitis, unspecified
CPT/HCPCS: 32555; 36415; 36600; 71045; 74470; 78582; 80048; 80053; 82550; 82553; 82805; 83880; 84484; 85025; 85379; 85610; 93005; 93306; 94640; 94660; 96360; 99285; A9540; A9558; J1940; J2920; J7030

== ENCOUNTER 2019-06-21 14:49 | Inpatient (IN) | payer MEDICARE, BC ==
[~2019-06-21] VITALS: Ht 152.4 cm; Wt 52.2 kg
[~2019-06-21 14:49] MED LIST changes: +BREO; +LASIX40 MG PO; +OYSCO 500+D TA1 EACH; +PREDNISONE20 MG PO; +TRIAMTERENE-HCTZ1 EA PO; +VERAPAMIL ER120 MG
[2019-06-21] MEDS ORDERED: B COMPLEX1 EACH (15:36)
[2019-06-21] MEDS ORDERED: SPIRIVA RESPIMAT4 G1 (15:37)
[2019-06-21] MEDS ORDERED: ASPIRIN 81 MG CHEW TAB PO ONE (16:00)
[2019-06-21] MEDS ORDERED: ALBUTEROL SULF 0.083% NEB SOLN 3 ML NEB NEB STA (16:23)
[2019-06-21] MEDS ORDERED: IPRATROPIUM BROMIDE 0.02% 2.5 ML NEB NEB STA (16:23)
[2019-06-21] MEDS ORDERED: METHYLPREDNISOLONE SOD SUCC 125 MG/2ML VIAL IV STA (16:23)
--- NOTE | 2019-06-21 16:41 | Diagnostic Imaging Report ---
Chest, 1 view, 06/21/2019. History: Severe shortness of breath, COPD. Comparison: 11/07/2018. Findings: The cardiomediastinal silhouette and pulmonary vasculature are prominent with bilateral interstitial opacities as well as blunting of the costophrenic sulci, right greater than left. There are no acute osseous or soft tissue abnormalities. Impression: Findings suggestive of CHF with bibasilar atelectasis and small pleural effusions. Signed by: Heriberto Barber on 06/21/2019 4:39 PM
[2019-06-21 16:46] LABS: BASOPHILS % 0.8 % (0.0-1.0); EOSINOPHILS % 0.6 % (0.0-6.0); HEMATOCRIT 42.3 % (34.2-44.1); HEMOGLOBIN 14.4 g/dL (12.0-16.0); LYMPHOCYTES # (AUTO) 0.9 (1.0-3.2); MEAN CORPUSCULAR HEMOGLOBIN 31.6 pg (28-32); MONOCYTES # (AUTO) 0.5 (0.2-0.8); MONOCYTES % 9.2 % (4.4-11.3); NEUTROPHILS # (AUTO) 3.6 (2.1-6.9); PLATELET COUNT 199 x10e3/uL (140-360); RED BLOOD COUNT 4.55 x10e6/uL (3.6-5.1); RED CELL DISTRIBUTION WIDTH 12.8 % (11.7-14.4)
[2019-06-21 16:55] LABS: INR 0.91; PROTHROMBIN TIME 12.8 seconds (11.9-14.5)
[2019-06-21 16:56] LABS: PARTIAL THROMBOPLASTIN TIME 30.7 seconds (23.8-35.5)
[2019-06-21 17:03] LABS: ALANINE AMINOTRANSFERASE 17 IU/L (0-55); ALBUMIN 3.4 g/dL (3.5-5.0); ALBUMIN/GLOBULIN RATIO 1.2 (0.8-2.0); ALKALINE PHOSPHATASE 44 IU/L (40-150); ANION GAP 11.7 mmol/L (8-16); BLOOD UREA NITROGEN 11 mg/dL (7-26); BUN/CREATININE RATIO 17 (6-25); CALCIUM 8.9 mg/dL (8.4-10.2); CARBON DIOXIDE 25 mmol/L (22-29); CHLORIDE 91 mmol/L (98-107); CREATINE KINASE 158 IU/L (29-168); CREATININE, SERUM 0.65 mg/dL (0.57-1.11); EST GLOMERULAR FILTRATION RATE > 60 ML/MIN (60-); GLUCOSE 74 mg/dL (74-118); POTASSIUM 4.7 mmol/L (3.5-5.1); SODIUM 123 mmol/L (136-145)
[2019-06-21] MEDS ORDERED: FUROSEMIDE INJ 10 MG/ML 4 ML VIAL IV ONE (17:45)
--- NOTE | 2019-06-21 18:01 | NUR ---
patient given Lasix, beside commode placed in room. Educated patient to notify staff via call miller if she needed any assistance getting on to the commode. Patient verbalized understanding.
[2019-06-21] MEDS: CEFTRIAXONE SOD 1 GM/NS 50 ML 50 ML IV SCH (19:10)
--- NOTE | 2019-06-21 19:18 | NUR ---
report given to Adrien PAVON
[2019-06-21] MEDS: AZITHROMYCIN 500MG/NS 250 ML 250 ML IV SCH (20:00)
--- NOTE | 2019-06-21 21:16 | NUR ---
REPORT RECEIVED FROM ER PATIENT PENDING ARRIVAL TO THE FLOOR, CHF, COPD EXACERBATION, BRONCHITIS, OXYGEN THEAPY, DAILY WEIGHT, CARDIAC DIET
[2019-06-21 22:12] VITALS: BP 105/59
[2019-06-21 22:20] VITALS: BP 115/64
[2019-06-21 22:49] VITALS: BP 115/64
[2019-06-21 23:16] VITALS: BP 115/64
[2019-06-21] MEDS: METHYLPREDNISOLONE SOD SUCC 125 MG/2ML VIAL IV SCH (23:32)
[2019-06-22] VITALS (9 sets, daily range): BP systolic 111–121; BP diastolic 55–66
[2019-06-22 01:26] LABS: CREATINE KINASE MB 4.6 ng/mL (0-5.0)
[2019-06-22] MEDS: METHYLPREDNISOLONE SOD SUCC 125 MG/2ML VIAL IV SCH ×4 (06:00→14:56)
[2019-06-22 06:11] LABS: HEMATOCRIT 42.7 % (34.2-44.1); LYMPHOCYTES # (AUTO) 0.4 (1.0-3.2); LYMPHOCYTES % 15.8 % (18.0-39.1); MEAN CORPUSCULAR HEMOGLOBIN 32.4 pg (28-32); MEAN CORPUSCULAR HGB CONC 35.1 g/dL (31-35); MEAN CORPUSCULAR VOLUME 92.2 fL (81-99); MONOCYTES % 0.8 % (4.4-11.3); PLATELET COUNT 210 x10e3/uL (140-360); RED BLOOD COUNT 4.63 x10e6/uL (3.6-5.1); RED CELL DISTRIBUTION WIDTH 12.8 % (11.7-14.4)
--- NOTE | 2019-06-22 06:14 | Diagnostic Imaging Report ---
EXAMINATION: CHEST SINGLE (PORTABLE) INDICATION: Short of breath COMPARISON: Chest x-ray 06/21/2019 FINDINGS: TUBES and LINES: None. LUNGS: Hyperinflated lungs. Mild prominence of pulmonary interstitium. Prominent pulmonary vasculature. Peribronchial cuffing. PLEURA: Small left and trace right pleural effusions. No pneumothorax.. HEART AND MEDIASTINUM: Cardiac size is mildly enlarged. There are atherosclerotic calcifications within the aorta. BONES AND SOFT TISSUES: No acute osseous lesion. Soft tissues are unremarkable. Healed left midclavicular fracture. UPPER ABDOMEN: No free air under the diaphragm. IMPRESSION: Mild cardiomegaly, small left and trace right pleural effusions, and mild pulmonary interstitial edema Signed by: Jonh Girard DO on 06/22/2019 6:10 AM
[2019-06-22 06:31] LABS: ALANINE AMINOTRANSFERASE 16 IU/L (0-55); ALBUMIN 3.3 g/dL (3.5-5.0); ALBUMIN/GLOBULIN RATIO 1.1 (0.8-2.0); ALKALINE PHOSPHATASE 40 IU/L (40-150); ANION GAP 12.2 mmol/L (8-16); BLOOD UREA NITROGEN 11 mg/dL (7-26); BUN/CREATININE RATIO 15 (6-25); CALCIUM 8.5 mg/dL (8.4-10.2); CARBON DIOXIDE 28 mmol/L (22-29); CHLORIDE 92 mmol/L (98-107); CREATININE, SERUM 0.71 mg/dL (0.57-1.11); EST GLOMERULAR FILTRATION RATE > 60 ML/MIN (60-); GLUCOSE 157 mg/dL (74-118); POTASSIUM 4.2 mmol/L (3.5-5.1); SODIUM 128 mmol/L (136-145)
--- NOTE | 2019-06-22 07:00 | NUR ---
RECEIVED PATIENT AWAKE RESTING IN BED. NO S/S OF DISTRESS. BED LOW, WHEELS LOCKED, SIDE RAILS X2. CALL LIGHT IN REACH WILL CONTINUE TO MONITOR PATIENT.
[2019-06-22 07:02] LABS: CREATINE KINASE MB 4.3 ng/mL (0-5.0)
[2019-06-22] MEDS ORDERED: FUROSEMIDE INJ 10 MG/ML 4 ML VIAL IV SCH (09:00)
[2019-06-22 14:26] LABS: CREATINE KINASE MB 4.7 ng/mL (0-5.0)
[2019-06-22] MEDS ORDERED: METHYLPREDNISOLONE SOD SUCC 125 MG/2ML VIAL IV SCH (15:00)
--- NOTE | 2019-06-22 15:18 | Consultation ---
DATE OF CONSULTATION: 06/22/2019 Pulmonary Critical Care consultation CHIEF COMPLAINT: Worsening dyspnea. HISTORY OF PRESENT ILLNESS: The patient is a 73-year-old woman. She has a history of COPD as well as systolic cardiomyopathy and congestive heart failure. She uses Spiriva at home as well as bronchodilators. She came in complaining of worsening dyspnea and wheezing. She noted some cough. She denied fevers. She received Solu-Medrol along with breathing treatments and Lasix in the ER. She feels much better. PAST SURGICAL HISTORY: Status post hernia repair. PAST MEDICAL HISTORY: 1. COPD. 2. Systolic congestive heart failure. 3. Hypertension. ALLERGIES: THE PATIENT REPORTS AN ALLERGY TO SULFA WELL IV CONTRAST DYES. SOCIAL HISTORY: The patient previously quit smoking. The patient is not an active drinker. FAMILY HISTORY: Family history is noncontributory. REVIEW OF SYSTEMS: The patient is afebrile. She does not have any headache. She has no neck pain. She has no swollen glands. She does note difficulty breathing. She has some cough. She has no chest pain. She has no nausea or vomiting. She has no abdominal pain. PHYSICAL EXAMINATION: VITAL SIGNS: The patient is afebrile. The vital signs are stable. HEENT: Shows no facial swelling or erythema. CARDIAC: Reveals regular rate and rhythm with normal S1 and S2. LUNGS: Auscultation of lungs reveals crackles in both lung cintron. ABDOMEN: Soft, nontender. There is no rebound or guarding. EXTREMITIES: Show no leg edema or calf tenderness. There is no cyanosis or clubbing. SKIN: Shows no rashes. LABORATORY DATA: Sodium is 128, BUN to creatinine ratio is 11 to 0.71. Other electrolytes are within normal limits. White blood cell count is 2.4 and hemoglobin is 15. The platelet count is 210. IMPRESSION: 1. Chronic obstructive pulmonary disease with acute exacerbation. 2. Acute on chronic systolic congestive heart failure. 3. Hyponatremia. 4. Leukopenia. PLAN: 1. The patient will continue the bronchodilators and Solu-Medrol. 2. The patient will continue oxygen. 3. Continue current cardiac regimen. 4. Continue diuretics. 5. Possible discharge home tomorrow. Fritz Rubi MD [facility]/DELFIN /[id number]
--- NOTE | 2019-06-22 15:31 | NUR ---
Nutrition Screen Note RD Recommendation for Physician: -Continue cardiac diet as ordered Plan of Care: RD following, monitoring for tolerance and adequacy Nutrition reason for involvement: Nutrition Risk Trigger Primary Diagnose(s): 1. Chronic obstructive pulmonary disease with acute exacerbation. 2. Acute on chronic systolic congestive heart failure. 3. Hyponatremia. 4. Leukopenia. PMH: 1. COPD. 2. Systolic congestive heart failure. 3. Hypertension. Ht: 60in Wt: 111lb BMI: 21.7kg/m2 IBW: 105lb +/- 10% RD Assessment: (06/21) Chart reviewed. Labs and meds reviewed. 73yo F, who was admitted for worsening dyspnea and wheezing. Visited pt in the room. Pt reported good appetite. No complains of nausea or vomiting. Pt denied any chewing or swallowing difficulty. Pt reported some weight gain from fluids retention. Will continue to monitor and follow. Current Diet: cardiac diet Malnutrition Evaluation (06/22/2019) The patient does not meet criteria for a specified degree of malnutrition at this time. Will re-evaluate at follow-up as appropriate. Diet Education Needs Assessment: Diet education not indicated. Nutrition Care Level: low Signed: Joyce Duron, MS, RD, LD
[2019-06-22] MEDS: ALBUTEROL SULF 0.083% NEB SOLN 3 ML NEB NEB SCH ×3 (15:55→23:20)
[2019-06-22] MEDS: IPRATROPIUM BROMIDE 0.02% 2.5 ML NEB NEB SCH ×3 (15:55→23:20)
[2019-06-22] MEDS: FUROSEMIDE INJ 10 MG/ML 2 ML VIAL IV SCH (17:13)
[2019-06-22] MEDS: CEFTRIAXONE SOD 1 GM/NS 50 ML 50 ML IV SCH (17:13)
[2019-06-22] MEDS ORDERED: SODIUM CHLORIDE 0.9% 250ML 250 ML ONE (17:16)
[2019-06-22] MEDS: AZITHROMYCIN 500MG/NS 250 ML 250 ML IV SCH (18:16)
--- NOTE | 2019-06-22 19:10 | NUR ---
BSSR RECEIVED FROM LIBRADO GAY PATIENT AOX4, ABLE TO MAKE NEEDS KNOWN, NO DISTRESS NOTED SKIN WARM DRY CALL LIGHT WITHIN REACH
[2019-06-23] VITALS: BP 115/55
[2019-06-23] MEDS: IPRATROPIUM BROMIDE 0.02% 2.5 ML NEB NEB SCH ×3 (03:00→11:00)
[2019-06-23] MEDS: ALBUTEROL SULF 0.083% NEB SOLN 3 ML NEB NEB SCH ×3 (03:00→11:00)
[2019-06-23 04:00] VITALS: BP 109/52
[2019-06-23 04:37] VITALS: BP 109/52
--- NOTE | 2019-06-23 05:55 | NUR ---
radiology called to confirm pending transport for patient via wheelchair to radiology for 2view CXR this morning, advised that patient may travel via wheelchair with oxygen 3 liters nasal cannula
[2019-06-23 06:22] LABS: BASOPHILS % 0.1 % (0.0-1.0); HEMATOCRIT 39.4 % (34.2-44.1); HEMOGLOBIN 13.5 g/dL (12.0-16.0); LYMPHOCYTES # (AUTO) 0.3 (1.0-3.2); LYMPHOCYTES % 2.8 % (18.0-39.1); MEAN CORPUSCULAR HEMOGLOBIN 31.9 pg (28-32); MEAN CORPUSCULAR HGB CONC 34.3 g/dL (31-35); MEAN CORPUSCULAR VOLUME 93.1 fL (81-99); MONOCYTES # (AUTO) 0.3 (0.2-0.8); MONOCYTES % 3.5 % (4.4-11.3); NEUTROPHILS # (AUTO) 8.7 (2.1-6.9); NEUTROPHILS % 92.9 % (38.7-80.0); PLATELET COUNT 185 x10e3/uL (140-360); RED BLOOD COUNT 4.23 x10e6/uL (3.6-5.1); RED CELL DISTRIBUTION WIDTH 13.1 % (11.7-14.4)
[2019-06-23 06:43] LABS: ALANINE AMINOTRANSFERASE 14 IU/L (0-55); ALBUMIN 3.1 g/dL (3.5-5.0); ALBUMIN/GLOBULIN RATIO 1.3 (0.8-2.0); ALKALINE PHOSPHATASE 34 IU/L (40-150); ANION GAP 13.3 mmol/L (8-16); BLOOD UREA NITROGEN 19 mg/dL (7-26); BUN/CREATININE RATIO 22 (6-25); CALCIUM 7.6 mg/dL (8.4-10.2); CARBON DIOXIDE 27 mmol/L (22-29); CHLORIDE 90 mmol/L (98-107); CREATININE, SERUM 0.87 mg/dL (0.57-1.11); EST GLOMERULAR FILTRATION RATE > 60 ML/MIN (60-); GLUCOSE 184 mg/dL (74-118); POTASSIUM 3.3 mmol/L (3.5-5.1); SODIUM 127 mmol/L (136-145)
--- NOTE | 2019-06-23 06:59 | NUR ---
BSSR GIVEN TO RN RASHAD, PATIENT SEEN AWAKE ALERT, NO DISTRESS NOTED, TELEMETRY BOX WORKING BUT PULSE OXIMETRY MALFUNCTIONING, ATTEMPTED SEVERAL TIMES TO FIX OVERNIGHT UNABLE TO DO SO, TELEMETRY NOTIFIED, "WE DONT HAVE ANY OTHER BOXES AT THIS TIME", UPDATED RN WITH CARE GIVEN OVERNIGHT TO MAINTAIN PT SAFETY, BED IN LOWEST POSITION CALL LIGHT WITHIN REACH
--- NOTE | 2019-06-23 07:00 | NUR ---
RECEIVED PATIENT RESTING IN BED NO S/S OF DISTRESS. BED LOW, WHEELS LOCKED, SIDE RAILS X2. CALL LIGHT IN REACH WILL CONTINUE TO MONITOR PATIENT.
--- NOTE | 2019-06-23 08:10 | Diagnostic Imaging Report ---
EXAMINATION: CHEST 2 VIEWS INDICATION: Congestive heart failure COMPARISON: Chest x-ray 06/22/2019 FINDINGS: TUBES and LINES: None. LUNGS: Hyperinflated lungs. Mild central bronchial wall thickening. There is perihilar interstitial opacities, consistent with interstitial edema. Prominent central pulmonary vasculature. Increased AP thoracic diameter. PLEURA: Small bilateral pleural effusions no pneumothorax. HEART AND MEDIASTINUM: Cardiac size is mildly enlarged. There are atherosclerotic calcifications within the aorta. BONES AND SOFT TISSUES: Age-indeterminate, likely chronic, mid thoracic vertebral body compression fracture. Soft tissues are unremarkable. Chronic left midclavicular fracture deformity. UPPER ABDOMEN: No free air under the diaphragm. IMPRESSION: Mild cardiomegaly and pulmonary interstitial edema with small bilateral pleural effusions. Pulmonary emphysema. Age-indeterminate, likely chronic, mid thoracic vertebral body compression fracture. Signed by: Jonh Girard DO on 06/23/2019 8:08 AM
[2019-06-23 08:12] VITALS: BP 128/66
[2019-06-23] MEDS: FUROSEMIDE INJ 10 MG/ML 2 ML VIAL IV SCH (08:39)
[2019-06-23 08:42] VITALS: BP 128/66
[2019-06-23] MEDS ORDERED: VERAPAMIL HCL 120 MG TABSR PO SCH (09:00)
[2019-06-23] MEDS ORDERED: PANTOPRAZOLE SOD 40 MG TABEC PO SCH (09:00)
[2019-06-23] MEDS ORDERED: LOSARTAN POTASSIUM 100 MG TAB PO SCH (09:00)
--- NOTE | 2019-06-23 11:22 | NUR ---
Educated patient on IMM letter. Verbalized understanding and signed. Copy to pt transition folder, and original placed in chart
[2019-06-23 11:26] VITALS: BP 112/58
[2019-06-23] MEDS ORDERED: POTASSIUM CHLORIDE 20 MEQ TAB CR PO ONE (11:35)
[2019-06-23] MEDS ORDERED: ALBUTEROL2.5 MG/3 M NEB (11:47)
[2019-06-23] MEDS ORDERED: IPRATROPIU0.2 MG/1 M NEB (11:47)
--- NOTE | 2019-06-23 11:55 | NUR ---
Patient Lives: Home Alone w/Assist Admit/Transfer ER Outside Facility Comment: PT LIVES WITH HER 31 YEAR OLD GRANDSON IN A HOUSE IN [place] Hospital/ER visits since last admission: 0 POA/Emergency Contact DAUGHTER ELIECER DURHAM [phone] Current/Previous Home Health NONE PCP/Follow-up Care: DR ALF SINGER Current/Previous DME HOME OXYGEN, ROLLING WALKER Comfort Level with Disease Management in Outpatient [place] Employment Status: Retired Goal For Discharge RETURN HOME W/O NEEDS.
--- NOTE | 2019-06-23 12:30 | NUR ---
removed patients iv. catheter tip intact and pressure dressing applied.
--- NOTE | 2019-06-23 13:32 | NUR ---
PATIENT DISCHARGED FROM FACILITY. PATIENT GATHERED ALL PERSONAL BELONGINGS, DISCHARGE INSTRUCTIONS AND FOLLOW UP INFORMATION. PATIENT LEFT UNIT IN WHEELCHAIR AND WENT HOME VIA PRIVATE AUTO.
--- NOTE | 2019-06-24 02:08 | Discharge Summary ---
CHIEF COMPLAINT: Cough, congestion, and shortness of breath. PERTINENT HISTORY AND PHYSICAL FINDINGS: Ms. Munoz is a 73-year-old female with a history of CHF, COPD, hypertension, and got admitted with complaints of cough, congestion, and shortness of breath upon exertion, which worsened on June 20. She does use home oxygen at 2 L/minute. Denied fever or chills on admission. Chest x-ray showed small pleural effusions and Pulmonology was consulted, Dr. Fritz Rubi. PAST MEDICAL HISTORY: Systolic congestive heart failure, COPD, oxygen dependent, hypertension, chronic back pain, osteoarthritis, osteoporosis. PAST SURGICAL HISTORY: Includes hernia repair. FAMILY HISTORY: Noncontributory. SOCIAL HISTORY: Former smoker. ALLERGIES: SULFA AND IODINE. ADMITTING DIAGNOSES: 1. Xjrcg-je-bvhhbhf congestive heart failure. 2. Kydxo-ye-nwozdor obstructive pulmonary disease. 3. Hypertension. 4. Hyponatremia. DISCHARGE DIAGNOSES: Include: 1. Pylic-gz-ahrjngg systolic congestive heart failure. 2. Acute exacerbation of chronic obstructive pulmonary disease. 3. Oxygen dependence. 4. Controlled hypertension. 5. Acute hyponatremia. 6. Acute hypokalemia. 7. Ambulatory dysfunction. HOSPITAL COURSE: On admission, sodium 123, potassium 4.7, chloride 91, CO2 of 25, BUN 11, creatinine 0.65, estimated GFR greater than 60, calcium 8.9, magnesium 1.6, AST 27, ALT 17, alkaline phosphatase 44. CK-MB 5.7. Troponin I 0.034. B-type natriuretic peptide 1269.4. Total protein 6.3, albumin 3.4. WBC 5.0. Today, on the day of discharge, chest x-ray shows mild cardiomegaly and pulmonary interstitial edema with small bilateral pleural effusions, pulmonary emphysema, age indeterminate, likely chronic mid thoracic vertebral body compression fracture. Today, WBC 9.34, sodium 137, potassium 3.3, chloride 90, CO2 of 27, BUN 19, creatinine 0.87, GFR greater than 60, AST 17, ALT 14, alkaline phosphatase 34. Three sets of cardiac enzymes were negative. The patient was seen by Dr. Fritz Rubi yesterday. The patient uses Spiriva at home. This was continued. She also received Solu-Medrol with nebulized treatments and Lasix in the emergency department. She is now feeling much better. Denies shortness of breath. She is currently on 3 L of oxygen via nasal cannula. The patient states she lives with her grandson. Continue cardiac diet. Activity level as tolerated. Follow up with PCP Dr. French in 1 to 2 weeks. Follow up with Dr. Rubi as directed. Dictated by Bill Kaur NP Memo Smith MD [facility]/MODL /[id number]
== END 2019-06-23 13:32 | disposition home or self-care (01) | DRG 291 ==
LOC: ER 14:49 → ERHOLD 18:28 → MED/SURG2 21:18
PROVIDERS: ADMIT Internal Medicine; ATTEND Internal Medicine
DX: I11.0 Hypertensive heart disease with heart failure (principal); J96.21 Acute and chronic respiratory failure with hypoxia; J44.1 Chronic obstructive pulmonary disease with (acute) exacerbation; E87.1 Hypo-osmolality and hyponatremia; I50.23 Acute on chronic systolic (congestive) heart failure; Z88.2 Allergy status to sulfonamides; Z91.041 Radiographic dye allergy status; M19.90 Unspecified osteoarthritis, unspecified site; Z87.891 Personal history of nicotine dependence; M81.0 Age-related osteoporosis without current pathological fracture; D72.819 Decreased white blood cell count, unspecified; Z99.81 Dependence on supplemental oxygen; E87.6 Hypokalemia
CPT/HCPCS: 36415; 71045; 71046; 80053; 82550; 82553; 83735; 83880; 84484; 85025; 85610; 85730; 93005; 94640; 99284; J0456; J0696; J1940; J2930; J7050

== ENCOUNTER 2019-09-16 06:02 | Inpatient (IN) | payer MEDICARE, BC, OTHER ==
[2019-09-16] VITALS (11 sets, daily range): BP systolic 116–136; BP diastolic 57–72
[~2019-09-16] VITALS: Ht 304.8 cm; Wt 54.9 kg
[~2019-09-16 06:02] MED LIST changes: +ALBUTEROL2.5 MG/3 M NEB; +B COMPLEX1 EACH; +IPRATROPIU0.2 MG/1 M NEB; +SPIRIVA RESPIMAT4 G1
--- OUTSIDE RECORDS SUMMARY | 2019-09-16 06:05 | XMS REPORT ---
Author Author [facility] t Organization [facility] Address [address] [place] [address] Phone Unavailable Care Team Providers Care Veneer Gluer Name Role Phone ENMANUEL PARSON, Lin MILNER PCP IVORY RAMEY Attphys Unavailable GRAVES, Lin LINCOLN Attphys Unavailable JEANCARLOSNisha Attphys Unavailable IVORY RAMEY Admphys Unavailable GRAVES, Lin SALAZAR Admphys Unavailable Payers Payer Name Policy Type Policy Number Effective Date Expiration Date John renteria [facility] [id number] 2016 00:00:00 [facility] Medicare A & B [id number] 2008 00:00:00 [facility] Problems Condition Name Condition Details Condition Category Status Onset Date Resolution Date Last Treatment Date Treating Clinician Comments Source Fracture of shaft of clavicle Clavicle fracture, shaft Problem Active [facility] Contusion of rib on left side Contusion of rib on left side Problem Active [facility] Bronchitis Bronchitis Problem Active [facility] Congestive heart failure CHF (congestive heart failure) Problem Active [facility] Chronic obstructive pulmonary disease COPD (chronic ob structive pulmonary disease) Problem Active [facility] Dyspnea Dyspnea Problem Active [facility] Hyponatremia Hyponatremia Problem Active [facility] Allergies, Adverse Reactions, Alerts Allergy Name Allergy Type Status Severity Reaction(s) Onset Date Inacti ve Date Treating Clinician Comments Source Iodinated Contrast- Oral and IV Dye Allergy to Substance Active M ild hives 2018-11-07 00:00:00 [facility] Sulfa (Sulfonamide Antibiotics) Allergy to Substance Active 2017-04-28 00:00:00 [facility] Medications Ordered Medication Name Filled Medication Name Start Date Stop Da te Current Medication? Ordering Clinician Indication Dosage Frequency Signature (SIG) Comments Components Source Albuterol Sulfate 2.5 Mg/3 Ml Vial.[facility] Albuterol Sulfate 2.5 Mg/3 Ml Vial.neb 2019-06-23 00:00:00 Yes Bill Kaur Electrical Assembler 3 Rt Q4h [facility] Ipratropium [place] 0.2 Mg/1 Ml Solution Ipratropium B romide 0.2 Mg/1 Ml Solution 2019-06-23 00:00:00 Yes Bill Obregon Vincent Electrical Assembler 2.5 Rt Q 4h [facility] Calcium Carbonate/Vitamin D3 (Oysco 500+D Tablet) 1 Ea ch Tablet Calcium Carbonate/Vitamin D3 (Oysco 500+D Tablet) 1 Each Tablet Yes [facility] Losartan Potassium 100 Mg Tablet Losartan Potassium 100 Mg Tablet Yes 50 Daily [facility] Omeprazole 20 Mg Tablet. Omeprazole 20 Mg Tablet. Yes 20 Daily [facility] Tiotropium [place] (Spiriva Respimat) 4 Gm Mist.inhal Tiotropium [place] (Spiriva Respimat) 4 Gm Mist.inhal Yes 1.25 [facility] Triamterene/Hctz (Triamterene-Hctz 37.5-25 Mg Tb) 1 Ea Tab Triamterene/Hctz (Triamterene-Hctz 37.5-25 Mg Tb) 1 Ea Tab Yes 1 [facility] Verapamil Hcl (Verapamil Er) 120 Mg Tablet.er Verapami l Hcl (Verapamil Er) 120 Mg Tablet.er Yes 240 Daily [facility] Verapamil Hcl (Verapamil Er) 120 Mg Cap24h.pel Verapam il Hcl (Verapamil Er) 120 Mg Cap24h.pel Yes 240 Daily [facility] Vitamin B Complex (B Complex) 1 Each Tablet Vitamin B Complex (B Complex) 1 Each Tablet Yes [facility] Albuterol Sulfate (Proair Hfa Inhaler*) 8.5 Gm Inh, Al buterol Sulfate (Proair Hfa Inhaler*) 8.5 Gm Inh, 2019-06-21 00:00:00 No Twice A Day [facility] Albuterol Sulfate (Proair Hfa Inhaler*) 8.5 Gm Inh, 8. 5 Gm Albuterol Sulfate (Proair Hfa Inhaler*) 8.5 Gm Inh, 8.5 Gm 2019-06-21 00:00:00 No 8.5 [facility] Breo Inhaler , Breo Inhaler , 2019-06-21 00:00:00 No [facility] Furosemide (Lasix) 40 Mg Tablet, 40 Mg Oral Furosemide (Lasix) 40 Mg Tablet, 40 Mg Oral 2019-06-21 00:00:00 No 40 Daily [facility] Prednisone 20 Mg Tab, 40 Mg Oral Prednisone 20 Mg Tab, 40 Mg Ora l 2019-06-21 00:00:00 No 40 Daily [facility] Mometasone/Formoterol (Dulera 200 Mcg/5 Mcg Inhaler) 1 3 Gm Hfa.aer.ad, Mometasone/Formoterol (Dulera 200 Mcg/5 Mcg Inhaler) 13 Gm Hfa.aer.ad, 2018-11-08 00:00:00 No Twice A Day [facility] Procedures Procedure Date / Time Performed Performing Clinician [facility] e X-ray of chest, two views 2019-06-23 00:00:00 FRANKLIN PETERS CH, I [facility] Thoracentesis with ultrasound guidance 2018-11-06 00:00:00 SALAZAR SAGASTUME [facility] DRAINAGE OF RIGHT PLEURAL CAVITY, PERCUTANEOUS APPROACH 2018 00:00[facility]00 [facility]RA[facility] RIGHT PLEURAL CAVITY, PERCUTANEOUS APPROACH 2018 00:00:00 [facility] Encounters Start Date/Time End Date/Time Encounter Type Admission Type [facility] Facility Care Department Encounter ID Source 2019-06-21 18:28:00 2019-06-23 13:32:00 Discharged Inpatient 1 IVORY RAMEY [facility] [id number] [facility] 2018-11-03 22:24:00 2018-11-09 15:29:00 Discharged Inpatient 1 SALAZAR GRAVES [facility] [id number] [facility] Results Test Description Test Time Test Comments Results Result Comments Source CHEST 2 VIEWS 2019-06-23 08:05:00 [place] [address] Patient Name: HARRIS FREEDMAN MR #: [id number] : 1945 Age/Sex: 73/F Req #: [id number] Adm Physician: IVORY RAMEY MD Ordered by: FRANKLIN PETERS MD Report #: [id number] Location: MED/SURG2 Room/Bed: [facility] [facility] Procedure: [id number] DX/CHEST 2 VIEWS Exam Date: 06/23/19 Exam Time: 0600 REPORT STATUS: Signed EXAMINATION: CHEST 2 VIEWS INDICATION: Congestive heart failure COMPARISON: Chest x-ray 06/22/2019 FINDINGS: TUBES and LINES: None. LUNGS: Hyperinflated lungs. Mild central bronchial wall thickening. There is perihilar interstitial opacities, consistent with interstitial edema. Prominent central pulmonary vasculature. Increased AP thoracic diameter. PLEURA: Small bilateral pleural effusions no pneumothorax. HEART AND MEDIASTINUM: Cardiac size is mildly enlarged. There are atherosclerotic calcifications within the aorta. BONES AND SOFT TISSUES: Age-indeterminate, likely chronic, mid thoracic vertebral body compression fracture. Soft tissues are unremarkable. Chronic left midclavicular fracture deformity. UPPER ABDOMEN: No free air under the diaphragm. IMPRESSION: Mild cardiomegaly and pulmonary interstitial edema with small bilateral pleural effusions. Pulmonary emphysema. Age-indeterminate, likely chronic, mid thoracic vertebral body compression fracture. Signed by: Jonh Marti DO on 06/23/2019 8:08 AM Dictated By: JONH MARTI DO 7 Transcribed By: HAROON on 06/23/19807 COPY TO: FRANKLIN PETERS MD Sodium Level 2019-06-23 07:05:00 Test Item Sodium Level (test code = 2951-2) 127 136-145 L [facility] CenterPotassium Ognsh7989-35-16 07:05:00* Test Item Value Reference Range Interpretation Comments Potassium Level (test code = 2823-3) 3.3 3.5-5.1 L [facility] CenterChloride Pckwz1165-73-94 07:05:00* Test Item Value Reference Range Interpretation Comments Chloride Level (test code = 2075-0) 90 98-107 L [facility] CenterCarbon Dioxide Nidnp4369-75-38 07:05:00* Test Item Value Reference Range Interpretation Comments Carbon Dioxide Level (test code = 2028-9) 27 22-29 [facility] CenterAnion Yqc8287-58-04 07:05:00* Test Item Value Reference Range Interpretation Comments Anion Gap (test code = 81447-5) 13.3 8-16 [facility] CenterBlood Urea Ikfvaeby5663-97-14 07:05:00* Test Item Value Reference Range Interpretation Comments Blood Urea Nitrogen (test code = 3094-0) 19 7-26 [facility] CenterCreatinine2020-03-08 07:05:00* Test Item Value Reference Range Interpretation Comments Creatinine (test code = 2160-0) 0.87 0.57-1.11 [facility] CenterBUN/Creatinine Lzpza5618-75-62 07:05:00* Test Item Value Reference Range Interpretation Comments BUN/Creatinine Ratio (test code = 3097-3) 22 6-25 [facility] CenterEstimat Glomerular Filtration Rate 2019-06-23 07:05:00* Test Item Value Reference Range Interpretation Comments Estimat Glomerular Filtration Rate (test code = 060948117) > 60 >60 Ranges were taken from the National Kidney Disease Education Program and the [facility] Kidney Foundation literature.Reference ranges:60 or greater: Sndwxf15-01 ( for 3 consecutive months): Chronic kidney disease 15 or less: Kidney failurePalestine Regional Medical CenterGlucose Ogozs5932-21-64 07:05:00* Test Item Value Reference Range Interpretation Comments Glucose Level (test code = SKD3421) 184 74-118 H [facility] CenterCalcium Xphuq0438-42-79 07:05:00* Test Item Value Reference Range Interpretation Comments Calcium Level (test code = 33431-2) 7.6 8.4-10.2 L [facility] CenterTotal Yggpahpxm4189-64-93 07:05:00* Test Item Value Reference Range Interpretation Comments Total Bilirubin (test code = 1975-2) 0.2 0.2-1.2 [facility] CenterAspartate Amino Transf (AST/SGOT) 2019-06-23 07:05:00* Test Item Value Reference Range Interpretation Comments Aspartate Amino Transf (AST/SGOT) (test code = Aspartate Amino Transf (AST/SGOT)) 17 5-34 [facility] CenterAlanine Aminotransferase (ALT/SGPT) 2019-06-23 07:05:00* Test Item Value Reference Range Interpretation Comments Alanine Aminotransferase (ALT/SGPT) (test code = 1742-6) 14 0-55 [facility] CenterTotal Ikncpdj3181-02-65 07:05:00* Test Item Value Reference Range Interpretation Comments Total Protein (test code = 2885-2) 5.5 6.5-8.1 L [facility] CenterAlbumin2020-03-08 07:05:00* Test Item Value Reference Range Interpretation Comments Albumin (test code = 1751-7) 3.1 3.5-5.0 L [facility] CenterGlobulin2020-03-08 07:05:00* Test Item Value Reference Range Interpretation Comments Globulin (test code = 28176-1) 2.4 2.3-3.5 [facility] CenterAlbumin/Globulin Ecods3505-93-33 07:05:00 * Test Item Value Reference Range Interpretation Comments Albumin/Globulin Ratio (test code = 1759-0) 1.3 0.8-2.0 [facility] CenterAlkaline Ygkgkokbijg9798-28-20 07:05:00* Test Item Value Reference Range Interpretation Comments Alkaline Phosphatase (test code = 6768-6) 34 40-150 L [facility] CenterWhite Blood Owkej8710-25-54 06:24:00* Test Item Value Reference Range Interpretation Comments White Blood Count (test code = 6690-2) 9.34 4.8-10.8 [facility] CenterRed Blood Ojjpd1077-78-70 06:24:00* Test Item Value Reference Range Interpretation Comments Red Blood Count (test code = 789-8) 4.23 3.6-5.1 [facility] CenterHemoglobin2020-03-08 06:24:00* Test Item Value Reference Range Interpretation Comments Hemoglobin (test code = 67886-8) 13.5 12.0-16.0 [facility] CenterHematocrit2020-03-08 06:24:00* Test Item Value Reference Range Interpretation Comments Hematocrit (test code = 4544-3) 39.4 34.2-44.1 [facility] CenterMean Corpuscular Chzlej0647-38-29 06:24:00* Test Item Value Reference Range Interpretation Comments Mean Corpuscular Volume (test code = 787-2) 93.1 81-99 [facility] CenterMean Corpuscular Teykcjmwcl7699-45-69 06:24:00* Test Item Value Reference Range Interpretation Comments Mean Corpuscular Hemoglobin (test code = 785-6) 31.9 28-32 [facility] CenterMean Corpuscular Hemoglobin Concent 2019-06-23 06:24:00* Test Item Value Reference Range Interpretation Comments Mean Corpuscular Hemoglobin Concent (test code = 786-4) 34.3 31-35 [facility] CenterRed Cell Distribution Gfyyx8226-32-38 06:24:00* Test Item Value Reference Range Interpretation Comments Red Cell Distribution Width (test code = 77864-4) 13.1 11.7 -14.4 [facility] CenterPlatelet Posxi5751-71-50 06:24:00* Test Item Value Reference Range Interpretation Comments Platelet Count (test code = 777-3) 185 140-360 [facility] CenterNeutrophils (%) (Auto)2019-06-23 06:24:00 * Test Item Value Reference Range Interpretation Comments Neutrophils (%) (Auto) (test code = 37786-2) 92.9 38.7-80.0 H [facility] CenterLymphocytes (%) (Auto)2019-06-23 06:24:00 * Test Item Value Reference Range Interpretation Comments Lymphocytes (%) (Auto) (test code = 736-9) 2.8 18.0-39.1 L [facility] CenterMonocytes (%) (Auto)2019-06-23 06:24:00* Test Item Value Reference Range Interpretation Comments Monocytes (%) (Auto) (test code = 5905-5) 3.5 4.4-11.3 L [facility] CenterEosinophils (%) (Auto)2019-06-23 06:24:00 * Test Item Value Reference Range Interpretation Comments Eosinophils (%) (Auto) (test code = 713-8) 0.0 0.0-6.0 [facility] CenterBasophils (%) (Auto)2019-06-23 06:24:00* Test Item Value Reference Range Interpretation Comments Basophils (%) (Auto) (test code = 706-2) 0.1 0.0-1.0 [facility] CenterIM GRANULOCYTES %2019-06-23 06:24:00* Test Item Value Reference Range Interpretation Comments IM GRANULOCYTES % (test code = IM GRANULOCYTES %) 0.7 0.0- 1.0 [facility] CenterNeutrophils # (Auto)2019-06-23 06:24:00* Test Item Value Reference Range Interpretation Comments Neutrophils # (Auto) (test code = 751-8) 8.7 2.1-6.9 H [facility] CenterLymphocytes # (Auto)2019-06-23 06:24:00* Test Item Value Reference Range Interpretation Comments Lymphocytes # (Auto) (test code = 93169-2) 0.3 1.0-3.2 L [facility] CenterMonocytes # (Auto)2019-06-23 06:24:00* Test Item Value Reference Range Interpretation Comments Monocytes # (Auto) (test code = 742-7) 0.3 0.2-0.8 [facility] CenterEosinophils # (Auto)2019-06-23 06:24:00* Test Item Value Reference Range Interpretation Comments Eosinophils # (Auto) (test code = 711-2) 0.0 0.0-0.4 [facility] CenterBasophils # (Auto)2019-06-23 06:24:00* Test Item Value Reference Range Interpretation Comments Basophils # (Auto) (test code = 704-7) 0.0 0.0-0.1 [facility] CenterAbsolute Immature Granulocyte (auto 2019-06-23 06:24:00* Test Item Value Reference Range Interpretation Comments Absolute Immature Granulocyte (auto (arely t code = Absolute Immature Granulocyte (auto) 0.07 0-0.1 [facility] CenterCreatine Kxtoqf5536-68-22 14:29:00* Test Item Value Reference Range Interpretation Comments Creatine Kinase (test code = 2157-6) 124 29-168 [facility] CenterCreatine Kinase SW5556-04-63 14:29:00* Test Item Value Reference Range Interpretation Comments Creatine Kinase MB (test code = 27063-3) 4.70 0-5.0 [facility] CenterTroponin R1247-79-98 14:29:00* Test Item Value Reference Range Interpretation Comments Troponin I (test code = MFM7743) 0.036 0-0.300 [facility] CenterCHEST SINGLE (PORTABLE)2019-06-22 05:07:00 [facility] [address] [place], [place] [address] Patient Name: HARRIS FREEDMAN MR #: [id number] : 1945 Age/Sex: 73/F Req #: [id number] Adm Physician: IVORY RAMEY MD Ordered by: BRUCE UP MD Report #: [id number] Location: MED/SURG2 Room/Bed: [facility] Procedure: [id number] DX/CHEST SINGLE (PORTABLE) Exam Date: 06/22/19 Exam Time: 0440 REPORT STATUS: Signed EXAMINATION: CHEST SINGLE (PORTABLE) INDICATION: Short of breath COMPARISON: Chest x-ray 06/21/2019 FINDINGS: TUBES and LINES: None. LUNGS: Hyperinflated lungs. Mild prominence of pulmonary int erstitium. Prominent pulmonary vasculature. Peribronchial cuffing. PLEURA: Small left and trace right pleural effusions. No pneumothorax.. HEART AND MEDIASTINUM: Cardiac size is mildly enlarged. There are atheroscle rotic calcifications within the aorta. BONES AND SOFT TISSUES: No acute os seous lesion. Soft tissues are unremarkable. Healed left midclavicular fractu re. UPPER ABDOMEN: No free air under the diaphragm. IMPRESSION: Mild cardiomegaly, small left and trace right pleural effusions, and mild pulmonary interstitial edema Signed by: Jonh Marti DO on 06/22/2019 6:10 AM Dictated By: JONH MARTI DO 9 Transcribed By: HAROON on 06/22/19609 COPY TO: BRUCE UP MD Magnesium Lwqbc7409-10-38 17:31:00* Test Item Value Reference Range Interpretation Comments Magnesium Level (test code = 68765-1) 1.6 1.3-2.1 [facility] CenterB-Type Natriuretic Gxgcynu2231-41-66 17:11:00* Test Item Value Reference Range Interpretation Comments B-Type Natriuretic Peptide (test code = 43646-3) 1269.4 0-100 H [facility] CenterProthrombin Neqs3030-47-62 16:56:00* Test Item Value Reference Range Interpretation Comments Prothrombin Time (test code = 5902-2) 12.8 11.9-14.5 [facility] CenterProthromb Time International Ratio 2019-06-21 16:56:00* Test Item Value Reference Range Interpretation Comments Prothromb Time International Ratio (test code = 6301-6) 0.91 Oral Anticoagulant Therapy INR Values:1. Low Intensity Therapy 1.5 - 2.02 . Moderate Intensity Therapy 2.0 - 3.03. High Intensity Therapy(1) 2.5 - 3. 54. High Intensity Therapy(2) 3.0 - 4.05. Panic Value INR > 5.0 [facility] CenterActivated Partial Thromboplast Time 2019-06-21 16:56:00* Test Item Value Reference Range Interpretation Comments Activated Partial Thromboplast Time (test code = 55345-8) 30.7 23.8-35.5 [facility] CenterCHEST SINGLE (PORTABLE)2019-06-21 16:37:00 [facility] [address] [place] [address] Patient Name: HARRIS FREEDMAN MR #: [id number] : 1945 Age/Sex: 73/F Req #: [id number] Adm Physician: Ordered by: BRUCE UP MD Report #: [id number] Location: ER Room/Bed: Procedure: [id number] DX/CHEST SINGLE (PORTABLE) Exam Date: 06/21/19 Exam Time: 1619 REPORT STATUS: Signed Chest, 1 view, 06/21/2019. History: Severe shortness of breath, COPD. Comparison: 11/07/2018. Findings: The cardiomediastinal silhouette and pulmonary vasculature are prominent with bilateral interstitial opacities as well as blunting of the costophrenic sulci, right greater than left. There are no acute osseous or soft tissue abnormalities. Impression: Findings suggestive of CHF with bibasilar atelectasis and small pleural effusions. Signed by: Heriberto Barber on 06/21/2019 4:39 PM Dictated By: HERIBERTO BARBER MD 38 Transcribed By: HAROON on 06/21/191638 COPY TO: BRUCE UP MD VQ LUNG SCAN VENT RJUROPWTA2886-11-28 14:05:00 [place] [address] Patient Name: HARRIS FREEDMAN MR #: [id number] : 1945 Age/Sex: 73/F Req #: [id number] Adm Physician: SALAZAR GRAVES MD Ordered by: FRANKLIN PETERS MD Report #: [id number] Location: [facility] Room/Bed: [place] [address] Procedure: [id number] NM/VQ LUNG SCAN VENT PERFUSION Exam Date: Exam T edward: REPORT STATUS: Signed Vent ilation/perfusion lung scan Clinical Information: 73 F with COPD and hypona tremia with acute onset SOB. Comparison: Chest radiograph 11/07/2018 Di scussion: Xenon-133 gas 20 mCi was administered via inhalation. Dynamic image s of the lungs in the posterior projection were obtained through single breath , equilibrium, and washout phases. Distribution of tracer activity is irregul ar throughout the lungs. There are no segmental ventilatory defects. Washout of tracer is markedly delayed throughout both lungs with severe bibasilar air trapping. Perfusion images of the lungs were obtained in multiple projecti ons following intravenous administration of approximately 6.6 mCi of Tc-99m MA A. Distribution of tracer is irregular throughout the lungs. The contours of the lungs are well demarcated. There are no segmental perfusion defects of an y size. A small nonsegmental defect is seen in the apicoposterior segment of the left lung, most likely a metallic artifact. The cardiomediastinal karen houette is unremarkable. Impression: Scan findings represent a VERY L OW probability for acute pulmonary embolic disease based on the PIOPED II crit eria. Scan evidence of severe obstructive lung disease. Signed by: Dr. Herb Morgan M.D. on 11/08/2018 2:17 PM Dictated By: JOYCE MORGAN MD Electr onically Signed By: JOYCE MORGAN MD on 11/08/181416 Transcribed By: HAROON on 11/08/181416 COPY TO: FRANKLIN PETERS MD Differential Total Cells Hdxznzw5466-16-59 08:20:00* Test Item Value Reference Range Interpretation Comments Differential Total Cells Counted (test code = Differcolin tial Total Cells Counted) 100 [facility] CenterNeutrophils % (Manual)2018-11-08 08:20:00 * Test Item Value Reference Range Interpretation Comments Neutrophils % (Manual) (test code = 29773-2) 91 40-74 H [facility] CenterLymphocytes % (Manual)2018-11-08 08:20:00 * Test Item Value Reference Range Interpretation Comments Lymphocytes % (Manual) (test code = 737-7) 3 19-48 L [facility] CenterMonocytes % (Manual)2018-11-08 08:20:00* Test Item Value Reference Range Interpretation Comments Monocytes % (Manual) (test code = 744-3) 6 3.4-9.0 [facility] CenterPlatelet Sqqqepwj4482-79-87 08:20:00* Test Item Value Reference Range Interpretation Comments Platelet Estimate (test code = 16785-3) ADEQUATE [facility] CenterPlatelet Morphology Ysupley2583-14-43 08:20:00* Test Item Value Reference Range Interpretation Comments Platelet Morphology Comment (test code = 49960-9) NORMAL [facility] CenterRed Cell Morphology Tqgqvyn5186-90-99 08:20:00* Test Item Value Reference Range Interpretation Comments Red Cell Morphology Comment (test code = 6742-1) NORMAL [facility] CenterDifferential Total Cells Counted 2018-11-08 08:20:00* Test Item Value Reference Range Interpretation Comments Differential Total Cells Counted (test code = Differen tial Total Cells Counted) 100 [facility] CenterNeutrophils % (Manual)2018-11-08 08:20:00 * Test Item Value Reference Range Interpretation Comments Neutrophils % (Manual) (test code = 43342-2) 91 40-74 H [facility] CenterLymphocytes % (Manual)2018-11-08 08:20:00 * Test Item Value Reference Range Interpretation Comments Lymphocytes % (Manual) (test code = 737-7) 3 19-48 L [facility] CenterMonocytes % (Manual)2018-11-08 08:20:00* Test Item Value Reference Range Interpretation Comments Monocytes % (Manual) (test code = 744-3) 6 3.4-9.0 [facility] CenterPlatelet Wsdjoxlf2340-88-75 08:20:00* Test Item Value Reference Range Interpretation Comments Platelet Estimate (test code = 41646-2) ADEQUATE [facility] CenterPlatelet Morphology Osnwvmp7725-05-10 08:20:00* Test Item Value Reference Range Interpretation Comments Platelet Morphology Comment (test code = 28767-9) NORMAL [facility] CenterRed Cell Morphology Nqhzlcv6101-83-12 08:20:00* Test Item Value Reference Range Interpretation Comments Red Cell Morphology Comment (test code = 6742-1) [facility]AL [facility] Xjnmz1373-20-14 07:06:00* Test Item Value Reference Range Interpretation Comments Sodium Level (test code = 2951-2) 130 136-145 L [facility] CenterPotassium Wyrwg9562-57-89 07:06:00* Test Item Value Reference Range Interpretation Comments Potassium Level (test code = 2823-3) 3.7 3.5-5.1 [facility] CenterChloride Opfgw8081-55-78 07:06:00* Test Item Value Reference Range Interpretation Comments Chloride Level (test code = 2075-0) 89 98-107 L [facility] CenterCarbon Dioxide Yjwwi9418-45-62 07:06:00* Test Item Value Reference Range Interpretation Comments Carbon Dioxide Level (test code = 2028-9) 31 22-29 H [facility] CenterAnion Efb8124-01-07 07:06:00* Test Item Value Reference Range Interpretation Comments Anion Gap (test code = 22437-3) 13.7 8-16 [facility] CenterBlood Urea Aqrfvemy3763-56-97 07:06:00* Test Item Value Reference Range Interpretation Comments Blood Urea Nitrogen (test code = 3094-0) 20 7-26 [facility] CenterCreatinine2019-07-25 07:06:00* Test Item Value Reference Range Interpretation Comments Creatinine (test code = 2160-0) 0.74 0.57-1.11 [facility] CenterBUN/Creatinine Zjheq5115-76-77 07:06:00* Test Item Value Reference Range Interpretation Comments BUN/Creatinine Ratio (test code = 3097-3) 27 6-25 H [facility] CenterEstimat Glomerular Filtration Rate 2018-11-08 07:06:00* Test Item Value Reference Range Interpretation Comments Estimat Glomerular Filtration Rate (test code = 862182069) > 60 >60 Ranges were taken from the National Kidney Disease Education Program and the [facility] literature.Reference ranges:60 or greater: Hhsmxo55-46 ( for 3 consecutive months): Chronic kidney disease 15 or less: Kidney failurePal[facility] Medical CenterGlucose Igqld5907-82-12 07:06:00* Test Item Value Reference Range Interpretation Comments Glucose Level (test code = ZYT9376) 153 74-118 H [facility] CenterCalcium Gxkkr1517-64-27 07:06:00* Test Item Value Reference Range Interpretation Comments Calcium Level (test code = 55193-7) 7.9 8.4-10.2 L [facility] CenterWhite Blood Aakrn6424-74-27 05:42:00* Test Item Value Reference Range Interpretation Comments White Blood Count (test code = 6690-2) 4.84 4.8-10.8 [facility] CenterRed Blood Jnqzn6785-63-45 05:42:00* Test Item Value Reference Range Interpretation Comments Red Blood Count (test code = 789-8) 5.14 3.6-5.1 H [facility] CenterHemoglobin2019-07-25 05:42:00* Test Item Value Reference Range Interpretation Comments Hemoglobin (test code = 84974-8) 16.9 12.0-16.0 H [facility] CenterHematocrit2019-07-25 05:42:00* Test Item Value Reference Range Interpretation Comments Hematocrit (test code = 4544-3) 50.3 34.2-44.1 H [facility] CenterMean Corpuscular Jwleeo6265-64-13 05:42:00* Test Item Value Reference Range Interpretation Comments Mean Corpuscular Volume (test code = 787-2) 97.9 81-99 [facility] CenterMean Corpuscular Etcdlfqhtl4671-48-69 05:42:00* Test Item Value Reference Range Interpretation Comments Mean Corpuscular Hemoglobin (test code = 785-6) 32.9 28-32 H [facility] CenterMean Corpuscular Hemoglobin Concent 2018-11-08 05:42:00* Test Item Value Reference Range Interpretation Comments Mean Corpuscular Hemoglobin Concent (test code = 786-4) 33.6 31-35 [facility] CenterRed Cell Distribution Exgnj1565-32-62 05:42:00* Test Item Value Reference Range Interpretation Comments Red Cell Distribution Width (test code = 23903-9) 12.6 11.7 -14.4 [facility] CenterPlatelet Rifdg1186-38-31 05:42:00* Test Item Value Reference Range Interpretation Comments Platelet Count (test code = 777-3) 147 140-360 [facility] CenterNeutrophils (%) (Auto)2018-11-08 05:42:00 * Test Item Value Reference Range Interpretation Comments Neutrophils (%) (Auto) (test code = 08584-1) 89.8 38.7-80.0 H [facility] CenterLymphocytes (%) (Auto)2018-11-08 05:42:00 * Test Item Value Reference Range Interpretation Comments Lymphocytes (%) (Auto) (test code = 736-9) 4.3 18.0-39.1 L [facility] CenterMonocytes (%) (Auto)2018-11-08 05:42:00* Test Item Value Reference Range Interpretation Comments Monocytes (%) (Auto) (test code = 5905-5) 4.5 4.4-11.3 [facility] CenterEosinophils (%) (Auto)2018-11-08 05:42:00 * Test Item Value Reference Range Interpretation Comments Eosinophils (%) (Auto) (test code = 713-8) 0.4 0.0-6.0 [facility] CenterBasophils (%) (Auto)2018-11-08 05:42:00* Test Item Value Reference Range Interpretation Comments Basophils (%) (Auto) (test code = 706-2) 0.2 0.0-1.0 [facility] CenterIM GRANULOCYTES %2018-11-08 05:42:00* Test Item Value Reference Range Interpretation Comments IM GRANULOCYTES % (test code = IM GRANULOCYTES %) 0.8 0.0- 1.0 [facility] CenterNeutrophils # (Auto)2018-11-08 05:42:00* Test Item Value Reference Range Interpretation Comments Neutrophils # (Auto) (test code = 751-8) 4.3 2.1-6.9 [facility] CenterLymphocytes # (Auto)2018-11-08 05:42:00* Test Item Value Reference Range Interpretation Comments Lymphocytes # (Auto) (test code = 22675-9) 0.2 1.0-3.2 L [facility] CenterMonocytes # (Auto)2018-11-08 05:42:00* Test Item Value Reference Range Interpretation Comments Monocytes # (Auto) (test code = 742-7) 0.2 0.2-0.8 [facility] CenterEosinophils # (Auto)2018-11-08 05:42:00* Test Item Value Reference Range Interpretation Comments Eosinophils # (Auto) (test code = 711-2) 0.0 0.0-0.4 [facility] CenterBasophils # (Auto)2018-11-08 05:42:00* Test Item Value Reference Range Interpretation Comments Basophils # (Auto) (test code = 704-7) 0.0 0.0-0.1 [facility] CenterAbsolute Immature Granulocyte (auto 2018-11-08 05:42:00* Test Item Value Reference Range Interpretation Comments Absolute Immature Granulocyte (auto (arely t code = Absolute Immature Granulocyte (auto) 0.04 0-0.1 [facility] CenterCHEST SINGLE (PORTABLE)2018-11-07 14:17:00 [place] [address] Patient Name: HARRIS FREEDMAN MR #: [id number] : 1945 Age/Sex: 73/F Req #: [id number] [facility] Physician: SALAZAR GRAVES MD Ordered by: SALAZAR GRAVES MD Report #: [id number] Location: [facility] Room/Bed: [place] [address] Procedure: 38 DX/CHEST SINGLE (PORTABLE) Exam Date: 11/07/18 Ex am Time: 1145 REPORT STATUS: Signed EXAMINATION: CHEST SINGLE (PORTABLE) INDICATION: Dyspnea COM PARISON: Multiple prior chest radiograph, most recently of 11/06/2018 F INDINGS: TUBES and LINES: EKG leads overlie the thorax. LUNGS: The lung s are moderately inflated. There is perihilar fullness and indistinctness of t he pulmonary vasculature. There is left basilar opacity silhouetting the left dayron diaphragm. PLEURA: Small left pleural effusion. No substantial right pleural effusion. No pneumothorax. HEART AND MEDIASTINUM: Cardiomediastin al silhouette is stably enlarged. Atherosclerotic calcifications of the thorac ic aorta. BONES AND SOFT TISSUES: No acute fracture or dislocation. UP PER ABDOMEN: No free air under the diaphragm. IMPRESSION: Mild pulmonary interstitial edema and unchanged cardiomegaly. Small left pleural effusion. No substantial right pleural effusion. No pneumothorax. Airspace opacity at the left lung base may represent subsegmental atelectasis or alternatively superimposed aspiration and/or pneumonia. Signed by: Grupo Yates MD on 2:20 PM Dictated By: GRUPO YATES MD 1420 Transcribed By: HAROON on 11/07/18 1420 COPY TO: SALAZAR GRAVES MD Total Uwhdtffyy9616-06-41 06:40:00* Test Item Value Reference Range Interpretation Comments Total Bilirubin (test code = 1975-2) 0.4 0.2-1.2 [facility] CenterAspartate Amino Transf (AST/SGOT) 2018-11-07 06:40:00* Test Item Value Reference Range Interpretation Comments Aspartate Amino Transf (AST/SGOT) (test code = Aspartate Amino Transf (AST/SGOT)) 15 5-34 [facility] CenterAlanine Aminotransferase (ALT/SGPT) 2018-11-07 06:40:00* Test Item Value Reference Range Interpretation Comments Alanine Aminotransferase (ALT/SGPT) (test code = 1742-6) 14 0-55 [facility] CenterTotal Enhuovh1784-99-76 06:40:00* Test Item Value Reference Range Interpretation Comments Total Protein (test code = 2885-2) 5.0 6.5-8.1 L [facility] CenterAlbumin2019-07-24 06:40:00* Test Item Value Reference Range Interpretation Comments Albumin (test code = 1751-7) 2.3 3.5-5.0 L [facility] CenterGlobulin2019-07-24 06:40:00* Test Item Value Reference Range Interpretation Comments Globulin (test code = 85262-3) 2.7 2.3-3.5 [facility] CenterAlbumin/Globulin Bkzkz4064-31-19 06:40:00 * Test Item Value Reference Range Interpretation Comments Albumin/Globulin Ratio (test code = 1759-0) 0.9 0.8-2.0 [facility] CenterAlkaline Uiegvmzcutf4422-85-28 06:40:00* Test Item Value Reference Range Interpretation Comments Alkaline Phosphatase (test code = 6768-6) 36 40-150 L [facility] CenterCHEST SINGLE (PORTABLE)2018-11-06 17:02:00 [place] [address] Patient Name: HARRIS FREEDMAN MR #: [id number] : 1945 Age/Sex: 73/F Req #: [id number] Adm Physician: SALAZAR GRAVES MD Ordered by: GRUPO YATES MD Report #: [id number] Location: [facility] Room/Bed: [place] [address] Procedure: [id number] D X/CHEST SINGLE (PORTABLE) Exam Date: 11/06/18 Exam T edward: 1631 REPORT STATUS: Signed EXAMINATION: CHEST SINGLE (PORTABLE) INDICATION: Status post thoracent esis, evaluate for pneumothorax COMPARISON: Chest radiograph of 11/06/2018 FINDINGS: TUBES and LINES: EKG leads overlie the right chest. L UNGS: The lungs are moderately inflated. There is perihilar fullness and jorge l stinctness of the pulmonary vasculature. Patchy bibasilar opacities obscure jerardo th hemidiaphragms. PLEURA: Interval decrease in previously moderate right pleural effusion. Small residual bilateral pleural effusions. No pneumothorax. HEART AND MEDIASTINUM: Cardiomediastinal silhouette is stably enlarged. Atherosclerotic calcifications of the thoracic aorta. BONES AND SOFT TISSUE S: Old fracture deformity of the left clavicle. No acute fracture or dislocati on. UPPER ABDOMEN: No free air under the diaphragm. IMPRESSION: Int erval decrease in right pleural effusion status post thoracentesis. No pneumot horax. Small residual bilateral pleural effusions. Unchanged pulmonary rohan a and cardiomegaly. Signed by: Grupo Yates MD on 11/06/2018 5:04 PM D ictated By: GRUPO YATES MD 1 704 Transcribed By: HAROON on 11/06/18 7045 COPY TO: GRUPO YATES MD IR AWETEBL8607-73-99 17:00:00 [place] [address] Patient Name: HARRIS FREEDMAN MR #: [id number] : 1945 Age/Sex: 73/F Req #: [id number] Adm Physician: SALAZAR GRAVES MD Ordered by: SALAZAR GRAVES MD Report #: [id number] Location: [facility] Room/Bed: [place] [address] Procedure: 25 DX/IR CONSULT Exam Date: Exam Time: REPORT STATUS: Signed PROCEDURE: Ultrasound- guided therapeutic thoracentesis Procedural Personnel Attending physicia n(s): Grupo Yates MD Fellow physician(s): None Resident physician(s): None Advanced practice provider(s): None Pre-procedure diagnosis: Right pleural effusion Post-procedure diagnosis: Same Indication: Pleural effusion with co mpromised respiration Additional clinical history: None Complications: No immediate complications. IMPRESSION: Ultrasound-guided thoracentesis with drainage of 1050 mL of serous fluid. Plan: Post-procedural chest ra diograph. Resume care by clinical team. PROCEDURE SUMMARY: - Limited thoracic ultraso und - Ultrasound-guided thoracentesis - Additional procedure(s): None P ROCEDURE DETAILS: Pre-procedure Consent: Informed consent for the procedu re including risks, benefits and alternatives was obtained and time-out was pe rformed prior to the procedure. Preparation: The site was prepared and draped using maximal sterile barrier technique including cutaneous antisepsis. A nesthesia/sedation Level of anesthesia/sedation: No sedation Anesthesia/alyssa tion administered by: Not applicable Limited thoracic ultrasound Limited thoracic ultrasound was performed using a curved transducer. A safe window for thoracentesis was identified. Left hemithorax findings: Not investigated R ight hemithorax findings: Moderate pleural effusion Thoracentesis Local a nesthesia was administered. The pleural space was accessed under real-time ult rasound guidance and fluid return confirmed position. The fluid was drained. The catheter was removed, and a sterile bandage was applied. Catheter placed: 5F Yo Post-drainage hemithorax findings: No visible pleural effusion Ad ditional Details Additional description of procedure: None Equipment details : None Specimens removed: Pleural fluid Estimated blood loss (mL): Less than 10 Standardized report: SIR_Thoracentesis_v3 Attestation Signer name: Grupo Yates MD I attest that I was present for the entire procedure. I reviewe d the stored images and agree with the report as written. Signed by : Grupo Yates MD on 11/06/2018 5:01 PM Dictated By: GRUPO YATES MD Electro nically Signed By: GRUPO YATES MD on 11/06/18 0101 Transcribed By: HAROON on 1701 COPY TO: SALAZAR GRAVES MD THORACENTESIS/US GUIDED 2018-11-06 17:00:00 [place] [address] Patient Name: HARRIS FREEDMAN MR #: [id number] : 1945 Age/Sex: 73/F Req #: [id number] Adm Physician: SALAZAR GRAVES MD Ordered by: SALAZAR GRAVES MD Report #: [id number] Location: [facility] Room/Bed: [place] [address] Procedure: US/THORACENTESIS/US GUIDED Exam Date: 11/06/18 Ex am Time: 1536 REPORT STATUS: Signed PROCEDURE: Ultrasound-guided therapeutic thoracentesis Procedural Brady licona Attending physician(s): Grupo Yates MD Fellow physician(s): None Resid ent physician(s): None Advanced practice provider(s): None Pre-procedure diagnosis: Right pleural effusion Post-procedure diagnosis: Same Indication: Pleural effusion with compromised respiration Additional clinical history: No ne Complications: No immediate complications. IMPRESSION: Ultraso und-guided thoracentesis with drainage of 1050 mL of serous fluid. Plan: Post-procedural chest radiograph. Resume care by clinical team. PROCEDURE SUMMARY: - Limited thoracic ultrasound - Ultrasound-guided thoracentesis - Additional procedure(s): None PROCEDURE DETAILS: Pre-procedure Consent: Informe d consent for the procedure including risks, benefits and alternatives was obt ained and time-out was performed prior to the procedure. Preparation: The site was prepared and draped using maximal sterile barrier technique including cut aneous antisepsis. Anesthesia/sedation Level of anesthesia/sedation: No s edation Anesthesia/sedation administered by: Not applicable Limited thora cic ultrasound Limited thoracic ultrasound was performed using a curved transd ucer. A safe window for thoracentesis was identified. Left hemithorax findi ngs: Not investigated Right hemithorax findings: Moderate pleural effusion Thoracentesis Local anesthesia was administered. The pleural space was acces sed under real-time ultrasound guidance and fluid return confirmed position. The fluid was drained. The catheter was removed, and a sterile bandage was norma lied. Catheter placed: 5F Jamiaeh Post-drainage hemithorax findings: No visible pleural effusion Additional Details Additional description of procedure: None Equipment details: None Specimens removed: Pleural fluid Estimated b lood loss (mL): Less than 10 Standardized report: SIR_Thoracentesis_v3 At testation Signer name: Grupo Yates MD I attest that I was present for the en tire procedure. I reviewed the stored images and agree with the report as writ ten. Signed by: Grupo Yates MD on 11/06/2018 5:01 PM Dictated B y: GRUPO YATES MD 00 [place] scribed By: HAROON on 11/06/181700 COPY TO: SALAZAR GRAVES MD Kwbsovywqqotqr0729-09-68 08:44:00* Test Item Value Reference Range Interpretation Comments Poikilocytosis (test code = 779-9) SLIGHT [facility] CenterAnisocytosis2019-07-23 08:44:00* Test Item Value Reference Range Interpretation Comments Anisocytosis (test code = 702-1) MODERATE [facility] CenterMacrocytosis2019-07-23 08:44:00* Test Item Value Reference Range Interpretation Comments Macrocytosis (test code = 738-5) MODERATE [facility] CenterPoikilocytosis2019-07-23 08:44:00* Test Item Value Reference Range Interpretation Comments Poikilocytosis (test code = 779-9) SLIGHT [facility] CenterAnisocytosis2019-07-23 08:44:00* Test Item Value Reference Range Interpretation Comments Anisocytosis (test code = 702-1) MODERATE [facility] CenterMacrocytosis2019-07-23 08:44:00* Test Item Value Reference Range Interpretation Comments Macrocytosis (test code = 738-5) MODERATE [facility] CenterCHEST SINGLE (PORTABLE)2018-11-06 06:47:00 [facility] [address] [place] [address] Patient Name: HARRIS FREEDMAN MR #: [id number] : 1945 Age/Sex: 73/F Req #: [id number] Adm Physician: SALAZAR GRAVES MD Ordered by: SALAZAR GRAVES MD Report #: [id number] Location: [facility] Room/Bed: [place] [address] Procedure: DX/CHEST SINGLE (PORTABLE) Exam Date: Exam Time: REPORT STATUS: Signed EXAMINAT ION: CHEST SINGLE (PORTABLE) INDICATION: COPD / PLEURAL EFFUS ION COMPARISON: 11/03/2018 FINDINGS: AP view TUBES and L JULIO C: None. LUNGS: Lungs are well inflated. Mild to moderate interstitia l edema, slightly increased from prior exam.. PLEURA: No pneumotho rax. Moderate size right and small left pleural effusions, increased from prio r exam. HEART AND MEDIASTINUM: The cardiac silhouette is partially obscure d. BONES AND SOFT TISSUES: No acute osseous lesion. Soft tissues are unremarkable. UPPER ABDOMEN: No free air under the diaphragm. IM PRESSION: Pulmonary edema and bilateral pleural effusions, slightly increased when compared to prior x-ray. Signed by: Dr. Bert Stinson MD on 10/16 6:49 AM Dictated By: BERT STINSON MD 8 Transcribed By: HAROON on 11/06/18648 COPY TO: SALAZAR GRAVES MD D-Dimer Quantitative (PE/DVT)2018-11-05 06:13:00* Test Item Value Reference Range Interpretation Comments D-Dimer Quantitative (PE/DVT) (test code = 63260-3) 1.23 0. 00-0.45 H As with all in vitro diagnostic tests, the test results should be interpreted by the physician in conjunction with clinical findings and other test results.Test results are reported in NEW D-dimer units(ug/mLFEU).[facility] CenterD-Dimer Quantitative (PE/DVT)2018-11-05 06:13:00* Test Item Value Reference Range Interpretation Comments D-Dimer Quantitative (PE/DVT) (test code = 08877-1) 1.23 0. 00-0.45 H As with all in vitro diagnostic tests, the test results should be interpreted by the physician in conjunction with clinical findings and other test results.Test results are reported in NEW D-dimer units(ug/mLFEU).[facility] CenterArtergalion [facility] Blood hV5894-82-48 00:41:00* Test Item Value Reference Range Interpretation Comments Arterial Blood pH (test code = 2744-1) 7.41 7.31-7.41 [facility] CenterArterial Blood Partial Pressure CO2 2018-11-04 00:41:00* Test Item Value Reference Range Interpretation Comments Arterial Blood Partial Pressure CO2 (test code = 2018-) 46 41-51 [facility] CenterArterial Blood Partial Pressure O2 2018-11-04 00:41:00* Test Item Value Reference Range Interpretation Comments Arterial Blood Partial Pressure O2 (test code = 2018-) 113 80-105 H [facility] CenterArterial Blood CQB68089-10-28 00:41:00* Test Item Value Reference Range Interpretation Comments Arterial Blood HCO3 (test code = 1960-4) 29 23-28 H [facility] CenterArterial Blood Base Fqlron3362-68-37 00:41:00* Test Item Value Reference Range Interpretation Comments Arterial Blood Base Excess (test code = 1925-7) 4.0 -2-3 H [facility] CenterArterial Blood Oxygen Saturation 2018-11-04 00:41:00* Test Item Value Reference Range Interpretation Comments Arterial Blood Oxygen Saturation (test code = 2708-6) 98.0 95-98 [facility] CenterFiO22019-07-21 00:41:00* Test Item Value Reference Range Interpretation Comments FiO2 (test code = FiO2) 50 Pt on BIPAP 12/6,R12,50%[facility] CenterArterial Blood pH 2018-11-04 00:41:00* Test Item Value Reference Range Interpretation Comments Arterial Blood pH (test code = 2744-1) 7.41 7.31-7.41 [facility] CenterArterial Blood Partial Pressure CO2 2018-11-04 00:41:00* Test Item Value Reference Range Interpretation Comments Arterial Blood Partial Pressure CO2 (test code = 2019-8) 46 41-51 [facility] CenterArterial Blood Partial Pressure O2 2018-11-04 00:41:00* Test Item Value Reference Range Interpretation Comments Arterial Blood Partial Pressure O2 (test code = 2018-8) 113 80-105 H [facility] CenterAr[facility] Blood ZOA34543-13-72 00:41:00* Test Item Value Reference Range Interpretation Comments Arterial Blood HCO3 (test code = 1960-4) 29 23-28 H [facility] CenterArterial Blood Base Pjdqir5139-41-70 00:41:00* Test Item Value Reference Range Interpretation Comments Arterial Blood Base Excess (test code = 1925-7) 4.0 -2-3 H [facility] CenterArterial Blood Oxygen Saturation 2018-11-04 00:41:00* Test Item Value Reference Range Interpretation Comments Arterial Blood Oxygen Saturation (test code = 2708-6) 98.0 95-98 [facility] CenterFiO22019-07-21 00:41:00* Test Item Value Reference Range Interpretation Comments FiO2 (test code = FiO2) 50 Pt on BIPAP 12/6,R12,50%[facility] CenterB-Type Natriuretic Hppucaw0142-17-28 22:06:00* Test Item Value Reference Range Interpretation Comments B-Type Natriuretic Peptide (test code = 31125-9) 624.5 0-100 H [facility] CenterCreatine Kinase IV6522-15-51 22:06:00* Test Item Value Reference Range Interpretation Comments Creatine Kinase MB (test code = 38901-4) 4.10 0-5.0 [facility] CenterTroponin [id number] 22:06:00* Test Item Value Reference Range Interpretation Comments Troponin I (test code = JFD3262) 0.035 0-0.300 [facility] CenterProthrombin Bhqr6804-41-86 21:57:00* Test Item Value Reference Range Interpretation Comments Prothrombin Time (test code = 5902-2) 12.0 11.9-14.5 [facility] CenterProthromb Time International Ratio 2018-11-03 21:57:00* Test Item Value Reference Range Interpretation Comments Prothromb Time International Ratio (test code = 6301-6) 0.84 Oral Anticoagulant Therapy INR Values:1. Low Intensity Therapy 1.5 - 2.02 . Moderate Intensity Therapy 2.0 - 3.03. High Intensity Therapy(1) 2.5 - 3. 54. High Intensity Therapy(2) 3.0 - 4.05. Panic Value INR > 5.0 [facility] CenterCreatine Bfhvjj5919-80-45 21:56:00* Test Item Value Reference Range Interpretation Comments Creatine Kinase (test code = 2157-6) 89 29-168 [facility] CenterCHEST SINGLE (PORTABLE)2018-11-03 21:17:00 [place] [address] Patient Name: HARRIS FREEDMAN MR #: [id number] : 1945 Age/Sex: 73/F Req #: [id number] Adm Physician: Ordered by: HERIBERTO WOODARD DO Report #: [id number] Location: ER Room/Bed: Procedure: [id number] D X/CHEST SINGLE (PORTABLE) Exam Date: 11/03/18 Exam T edward: 2049 REPORT STATUS: Signed EXAMINATION: CHEST SINGLE (PORTABLE) INDICATION: COPD. COMPARISON : None FINDINGS: TUBES and LINES: None. LUNGS: Lungs are wel l inflated. There are bibasilar atelectasis. There is mild prominence of th e central pulmonary vasculature, consistent with pulmonary venous congestion. PLEURA: Small right and trace left pleural effusions. No pneumothorax. HEART AND MEDIASTINUM: Cardiac size is mildly enlarged. There are atheroscl erotic calcifications within the aorta. BONES AND SOFT TISSUES: No acute o sseous lesion. Remote displaced left clavicle fracture. UPPER ABDOMEN: N o free air under the diaphragm. IMPRESSION: Mild bilateral pulmonary venous congestion. Bilateral pleural effusions. Signed by: Dr. Balaji Ansari M.D. on 11/03/2018 9:22 PM Dictated By: BRIDGETT ANSARI MD, MD 21 Transcribed B y: HAROON on 11/03/182121 COPY TO: HERIBERTO WOODARD DO CLAVICLE LEFT [place] [address] Patient Name: HARRIS FREEDMAN MR #: [id number] : 1945 Age/Sex: 71/F Req #: [id number] Adm Physician: Ordered by: MAUREEN ARSHAD MD Report #: [id number] Location: ER Room/Bed: Procedure: [id number] DX/CLAVICLE LEFT Exam Date: 04/28/17 Exam Time: 1150 REPORT STATUS: S igned CORRECTION Corrected on: 04/28/2017; Dictated by: Efrain coley M.D. on 04/28/2017 at 12:40 Electronically approved by: Efrain ulloa M.D. on 04/28/2017 at 12:40 PROCEDURE: CLAVICLE LE FT INDICATION: Status post fall, left-sided pain COMPARISON: DX, CHES T SINGLE (NOT PORTABLE), 10/24/2012, 13:33. FINDINGS: Acute, displaced obli que fracture of the mid clavicular diaphysis, with inferior displacement of t he distal fracture fragment by approximately one shaft width. No definite a.c . separation. Glenohumeral joint is unremarkable. Decreased pulmonary statio n. Visualized portion of the left upper lobe is clear. CONCLUSION: 1. Acute displaced oblique fracture of the mid clavicular diaphysis with inferio r displacement of the distal fracture fragment by approximately one shaft wid th. 2. Glenohumeral joint is unremarkable. 3. Generalized osteopenia. Efrain Frost M.D. Dictated by: Efrain Frost M.D. on 04/28/2017 at 12:37 Electronically approved by: Ally Kumar on 04/28/2017 at 12:37 Dictated By: EFRAIN FROST MD Elec tronically Signed By: EFRAIN FROST MD on 04/28/17 1240 Transcribed By: JASS on 04/28/17 1240 COPY TO: MAUREEN ARHSAD MD SHOULDER LEFT COMPLETE [place] [address] Patient Name: HARRIS FREEDMAN MR #: [id number] : 1945 Age/Sex: 71/F Req #: [id number] Adm Physician: Ordered by: MAUREEN ARSHAD MD Report #: [id number] Location: ER Room/Bed: Procedure: [id number] DX/SHOULDER LEFT COMPLE TE Exam Date: 04/28/17 Exam Time: 1150 REPORT STATUS: Signed PROCEDURE: Left shoulder films INDICATION: Status post fall, left-sided pain COMPARISON: DX, CHEST SINGLE (NOT PORTABLE), 10/24/2012, 13:33. FINDINGS: Acute, displaced oblique fracture of the mid clavicular kate physis, with inferior displacement of the distal fracture fragment by approxim ately one shaft width. No definite a.c. separation. Glenohumeral joint is u nremarkable. Decreased pulmonary station. Visualized portion of the left upp er lobe is clear. CONCLUSION: 1. Acute displaced oblique fracture of the mid clavicular diaphysis with inferior displacement of the distal fracture f ragment by approximately one shaft width. 2. Glenohumeral joint is unremark able. 3. Generalized osteopenia. Efrain Frost M.D. Dictated by : Efrain Frost M.D. on 04/28/2017 at 12:40 Electronically approved by: Efrain Frost M.D. on 04/28/2017 at 12:40 Dictated By : EFRAIN FROST MD 124 0 Transcribed By: JASS on 04/28/17 1240 COPY TO: MAUREEN ARSHAD MD W/CXR [place] [address] Patient Name: HARRIS FREEDMAN MR #: [id number] : 1945 Age/Sex: 71/F Req #: [id number] Adm Physician: Ordered by: MAUREEN ARSHAD MD Report #: [id number] Location: ER Room/Bed: Procedure: [id number] DX/RIBS UNILAT W/CXR E xam Date: 04/28/17 Exam Time: 1150 REPORT STATU S: Signed PROCEDURE: X-RAY UNILATERAL RIBS WITH CHEST X-RAY COMPARISO N: [facility], DX, CHEST SINGLE (NOT PORTABLE), 10/24/2012, 13: 33. INDICATIONS: FALL AND ANTERIOR LEFT SIDE PAIN FINDINGS: BONES: Decreased mineralization. No acute, displaced rib fracture or disloc ation. SOFT TISSUES: Negative. OTHER: Mild coarsening of the interstiti al markings and linear scarring, predominantly in the upper lobes, which is s lightly more conspicuous than on prior exam and likely reflect COPD changes. No consolidation or effusion. Cardiac silhouette is unremarkable. Pulmonar y vasculature is normal. Atherosclerotic calcification of the aortic arch. CONCLUSION: No acute, displaced rib fracture or dislocation. Decreased mineralization. COPD changes. Clyde Kumar ictated by: Efrain Frost M.D. on 04/28/2017 at 12:44 Electronically approved by: Efrain Frost M.D. on 04/28/2017 at 12:44 D ictated By: EFRAIN FROST MD 1244 COPY TO: MALIKA ARSHAD MD
[2019-09-16] MEDS ORDERED: SODIUM CHLORIDE 0.9% 1000ML 1,000 ML IV STA (06:13)
[2019-09-16] MEDS ORDERED: ALBUTEROL SULF 0.083% NEB SOLN 3 ML NEB NEB STA (06:13)
--- NOTE | 2019-09-16 06:15 | Emergency Department Note ---
History of Present Illnes History of Present Illness History of Present Illness This is a 74 year old female with acute dyspnea which woke her up from sleep . 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 Any updates have been documented here. Past Medical History Recent Fever: No Clinical Suspicion of Infectio: Yes New/Unexplained Change in Ment: No Past Medical History: Hypertension, COPD, CHF, Asthma, UTI's, Depression, GERD, Chronic Back Pain Other Medical History: osteoporosis Past Surgical History: Hernia Repair Other Surgery: HERNIA REPAIR, COLONOSCOPY Social History Smoking Cessation: Unknown if ever smoked Alcohol Use: None Any Illegal Drug Use: No Other Last Tetanus: unknown Review of Systems ROS Narrative Unable to obtain ROS: critical patient Review of Systems Review of other systems All other systems reviewed and negative. Physical Exam Related Data Allergies: Coded Allergies: Iodinated Contrast- Oral and IV Dye (Verified Allergy, Mild, hives, 11/07/18) Sulfa (Sulfonamide Antibiotics) (Verified Allergy, Unknown, 04/28/17) Triage Vital Signs Vital Signs Date Time Temp Pulse Resp B/P (MAP) Pulse Ox O2 Delivery O2 Flow Rate FiO2 09/16/19 06:02 98.6 82 38 159/91 100 09/16/19 06:58 14.0 09/16/19 13:52 Venturi Mask Vital signs reviewed: Yes Physical Exam CONSTITUTIONAL Constitutional: diaphoretic, distressed, ill appearing HENT HENT: normocephalic, atraumatic, oropharynx clear/moist, nose normal HENT L/R: left ext ear normal, right ext ear normal EYES Eyes: PERRL, conjunctivae normal NECK Neck: ROM normal PULMONARY Pulmonary: respiratory distress CARDIOVASCULAR Cardiovascular: tachycardia GASTROINTESTINAL Abdominal: soft, nontender, bowel sounds normal GENITOURINARY Genitourinary: exam deferred SKIN Skin: pale MUSCULOSKELETAL Musculoskeletal: ROM normal NEUROLOGICAL Neurological: alert, oriented x 3, no gross motor or sensory deficits PSYCHOLOGICAL Psychological: mood/affect normal, judgement normal Results Laboratory Lab results reviewed: No Imaging Imaging results reviewed: Yes Impressions [facility] [address] [place] [address] Patient Name: HARRIS FREEDMAN MR #: [id number] : 1945 Age/Sex: 74/F Req #: [id number] Adm Physician: IVORY RAMEY MD Ordered by: NITESH WOODARD DO Report #: [id number] Location: [facility] Room/Bed: [place] [address] Procedure: [id number] DX/CHEST SINGLE (PORTABLE) Exam Date: 09/16/19 Exam Time: 727 REPORT STATUS: Signed EXAM: CHEST SINGLE (PORTABLE) DATE: 09/16/2019 7:28 AM INDICATION: Shortness of breath, respiratory distress, status post intubation. COMPARISON: 06/22/2019 FINDINGS: Endotracheal tube terminates approximately 4.9 cm above the mallory. The trachea is midline. There are increased interstitial markings present bilaterally as well as perihilar fullness. There is no evidence for large focal consolidation or pneumothorax. There is blunting of the left costophrenic angle and a trace effusion is possible. No significant volume of pleural effusion is present. The cardiomediastinal silhouette is stable in appearance. No acute osseous abnormalities identified. IMPRESSION: Increased interstitial opacities present bilaterally which are nonspecific but can be seen in the setting of edema. An atypical infectious/inflammatory process could have a similar appearance. Signed by: Dr. Patrick Horta MD on 09/16/2019 9:28 AM Dictated By: PATRICK HORTA MD 7 Transcribed By: HAROON on 09/16/19927 COPY TO: NITESH WOODARD DO~ Procedures 12 Lead ECG Interpretation Traffic I Manager: Interpreted by ED physician Date: Sep 16, 2019 Time: 06:42 Prior DIE REPAIRER STAMPING tracings: reviewed Rhythm: sinus tachycardia Rate: tachycardia BPM: 122 QRS axis: normal Conduction: complete LBBB ST segments normal: Yes T waves normal: Yes Other findings: no other findings Clinical Impression: abnormal ECG Central Line Placement Central Line Location: right femoral Time out performed: Yes Patient Placed on Monitor/Puls: Yes MD Prep: mask, gown, gloves, other Central Line Prep: Chlorhexidine scrub Ultrasound Used for Placement: No Central Line Lumen Inserted: triple Post Procedure: sutured in place, good blood return, all ports aspirated/flushed/capped, sterile dressing applied Post Procedure X-ray: tip of catheter in good condition Patient tolerated procedure: well Additional comments approximately 0600 Intubation Time out performed: Yes Sedative: Etomidate Paralytic: Succinylcholine Laryngoscope: fiber optic video scope Assist device used: fiber optic device Endotracheal tube size: 7.5 ET tube uncuffed: No Tube placement confirmation: visualize tube passing cords Patient tolerated procedure: well Complications: none Critical Care Time Total Critical Care Time (min): 40 Critcal care necessary due to: respiratory failure Assessment & Plan Assessment & Plan Final Impression: (1) ACUTE RESPIRATORY DISTRESS SYNDROME (2) ACUTE RESPIRATORY FAILURE WITH HYPOXIA Assessment & Plan patient arrived to ED in extremis. Patient was tried on a trial of BiPAP which did not improve her symptoms clinically. Decision was made to RSI patient at 06:45. Patient successfully intubated. Patient admitted to the ICU and case d/w with Dr Ramone Rubi Depart Disposition: ADMITTED Home Meds Active Scripts Prednisone (PREDNISONE) 20 Mg Tab, 10 MG PO UD for 9 Days TAKE 20MG PO BID X3 DAYS THEN TAKE 10MG PO BID X3 DAYS THEN TAKE 10MG PO DAILY X3 DAYS THEN STOP Prov:ELISA,ULISES M ELECTRONICS RESEARCH ENGINEER 20 Furosemide (FUROSEMIDE) 40 Mg Tablet, 40 MG PO Daily, #30 TAB Prov:ELISA,ULISES M ELECTRONICS RESEARCH ENGINEER 20 Carvedilol (COREG) 3.125 Mg Tab, 3.125 MG PO BID for 30 Days, TAB Prov:ELISA,ULISES M ELECTRONICS RESEARCH ENGINEER 09/18/20 Albuterol Sulfate (ALBUTEROL SULFATE) 2.5 Mg/3 Ml Vial.neb, 3 ML NEB RQ4H for 14 Days, #90 VIAL Prov:LOU,RAMBO W ELECTRONICS RESEARCH ENGINEER 06/23/19 Ipratropium [place] (IPRATROPIUM BROMIDE) 0.2 Mg/1 Ml Solution, 2.5 ML NEB RQ4H for 14 Days, #90 VIAL Prov:RAMBO BLAKE ELECTRONICS RESEARCH ENGINEER 06/23/19 Reported Medications Tiotropium [place] (Spiriva Respimat) 4 Gm Mist.inhal, 1.25 MCG 06/21/19 Vitamin B Complex (B COMPLEX) 1 Each Tablet 06/21/19 Calcium Carbonate/Vitamin D3 (OYSCO 500+D TABLET) 1 Each Tablet 11/04/18 Omeprazole (OMEPRAZOLE) 20 Mg Tablet.dr, 20 MG PO DAILY 10/24/12 Discontinued Reported Medications Triamterene/Hctz (TRIAMTERENE-HCTZ 37.5-25 MG TB) 1 Ea Tab, 1 EACH PO, TAB 11/04/18 Verapamil Hcl (VERAPAMIL ER) 120 Mg Cap24h.pel, 240 MG DAILY 11/04/18 Verapamil Hcl (VERAPAMIL ER) 120 Mg Tablet.er, 240 MG PO DAILY 10/24/12 Losartan Potassium (LOSARTAN POTASSIUM) 100 Mg Tablet, 50 MG PO DAILY 10/24/12 NITESH WOODARD 1, 2020 06:15
[2019-09-16] MEDS ORDERED: KETAMINE HCL INJ 50 MG/ML 10 ML VIAL ONE (06:21)
[2019-09-16 06:54] LABS: BASOPHILS # (AUTO) 0.1 (0.0-0.1); BASOPHILS % 0.9 % (0.0-1.0); EOSINOPHILS # (AUTO) 0.1 (0.0-0.4); EOSINOPHILS % 1.2 % (0.0-6.0); HEMATOCRIT 44.4 % (34.2-44.1); LYMPHOCYTES # (AUTO) 1.9 (1.0-3.2); LYMPHOCYTES % 17.5 % (18.0-39.1); MEAN CORPUSCULAR HEMOGLOBIN 31.7 pg (28-32); MEAN CORPUSCULAR HGB CONC 31.5 g/dL (31-35); MEAN CORPUSCULAR VOLUME 100.7 fL (81-99); MONOCYTES # (AUTO) 0.6 (0.2-0.8); MONOCYTES % 5.8 % (4.4-11.3); NEUTROPHILS % 74.3 % (38.7-80.0); PLATELET COUNT 249 x10e3/uL (140-360); RED BLOOD COUNT 4.41 x10e6/uL (3.6-5.1); RED CELL DISTRIBUTION WIDTH 12.7 % (11.7-14.4)
--- NOTE | 2019-09-16 06:58 | NUR ---
Patient to be intubated. 20 of Etomidate given at 0649 100 of Succinylcholine given at 0649 Successful intubation with a 7.5 ETT with positive color change at 0650. ET tube secured at 21 at the lips.
[2019-09-16] MEDS ORDERED: SODIUM CHLORIDE 0.9% 1000ML 1,000 ML IV SCH (07:00)
[2019-09-16] MEDS ORDERED: PROPOFOL IV EMULSION 10MG/ML 100 ML IV STA (07:00)
[2019-09-16] MEDS ORDERED: SUCCINYLCHOLINE 200 MG/10 ML SYR IV STA (07:13)
[2019-09-16] MEDS ORDERED: ETOMIDATE 2 MG/ML 10 ML INJ IV STA (07:13)
[2019-09-16] MEDS ORDERED: KETAMINE HCL INJ 50 MG/ML 10 ML VIAL IV ONE (07:15)
[2019-09-16 07:21] LABS: INR 0.84
[2019-09-16] MEDS ORDERED: PROPOFOL IV EMULSION 50 ML IV ONE (07:22)
[2019-09-16] MEDS: PIPER-TAZ 3.375 GM 50 ML IV SCH ×3 (07:27→17:03)
[2019-09-16 07:30] LABS: ALBUMIN 3.1 g/dL (3.5-5.0); ALBUMIN/GLOBULIN RATIO 1.1 (0.8-2.0); ANION GAP 15.2 mmol/L (8-16); CALCIUM 7.8 mg/dL (8.4-10.2); CREATININE, SERUM 1.2 mg/dL (0.57-1.11); POTASSIUM 5.2 mmol/L (3.5-5.1)
[2019-09-16 07:37] LABS: CREATINE KINASE MB 4.6 ng/mL (0-5.0)
--- NOTE | 2019-09-16 07:58 | NUR ---
Patient on Propofol drip but noted to be sitting up in bed. Order obtained from Dr. Rubi to initiate restraints for the patient's safety. Will continue to monitor the patient closely.
[2019-09-16] MEDS ORDERED: LORAZEPAM INJ 2 MG/ML VIAL IV PRN (08:00)
[2019-09-16] MEDS ORDERED: FUROSEMIDE INJ 10 MG/ML 4 ML VIAL IV ONE (08:00)
--- NOTE | 2019-09-16 08:47 | Consultation ---
DATE OF CONSULTATION: Pulmonary Critical Care Consultation CHIEF COMPLAINT: Dyspnea and difficulty breathing. HISTORY OF PRESENT ILLNESS: The patient is a 74-year-old woman. She has a history of severe COPD. She also has chronic systolic congestive heart failure. She required hospitalization at [facility] in June of this year for worsening dyspnea and pleural effusion. She required a thoracentesis as well as Solu-Medrol and bronchodilators. She responded and was subsequently discharged. The patient also had an outpatient CT that showed a small indeterminate nodule. She is scheduled for a repeat CT again in 6 months. The patient now complains of worsening dyspnea and fatigue over several days. The patient did not have fevers. There was no chest pain or cough. PAST SURGICAL HISTORY: Status post hernia repair. PAST MEDICAL HISTORY: 1. Systolic congestive heart failure. The details of her ejection fraction and prior history are not clear at this time. 2. Severe COPD. 3. Hypertension. 4. Pulmonary nodule. ALLERGIES: THE PATIENT IS ALLERGIC TO IV CONTRAST WELL SULFA. SOCIAL HISTORY: The patient is a reformed smoker. She is no longer drinking. FAMILY HISTORY: Noncontributory. REVIEW OF SYSTEMS: The patient is afebrile. The patient has no headache or neck pain. There was no chest pain. She had dyspnea and cough. She had no abdominal pain. She had no leg edema. PHYSICAL EXAMINATION: VITAL SIGNS: The patient was afebrile. The blood pressure is 108/68 and saturation was 98%. Pulse is 102. HEENT: Shows no facial swelling or erythema. CARDIAC: Reveals a distant heart sounds. There is normal S1 and S2. LUNGS: Auscultation of lungs reveals a prolonged expiratory phase with wheezing. ABDOMEN: Soft, nontender. There is no rebound or guarding. EXTREMITIES: Show no leg edema or calf tenderness. There is no cyanosis or clubbing. SKIN: Shows no rashes. NEUROLOGICAL: Shows no focal abnormalities. LABORATORY DATA: White blood cell count is 10.7 and hemoglobin is 14. The platelet count is 249. The BUN to creatinine ratio is 12 to 1.2 and the sodium is 133. Carbon dioxide is 20 with chloride of 103. The BNP is 907. IMPRESSION: 1. Mbzfn-ls-abgheod respiratory failure. 2. Acute on chronic systolic congestive heart failure. 3. Severe chronic obstructive pulmonary disease. 4. Hypertension. PLAN: 1. The patient will receive Solu-Medrol along with bronchodilators. 2. Hold fluids and give diuretics. 3. Continue mechanical ventilation for now and work towards extubation. 4. Echocardiogram. 5. Obtain outpatient CT scan done at [facility]. MD VIRGINIA Conway/DELFIN /[id number]
[2019-09-16] MEDS ORDERED: LOSARTAN POTASSIUM 100 MG TAB PO SCH (09:00)
[2019-09-16] MEDS ORDERED: VERAPAMIL HCL 120 MG TABSR PO SCH (09:00)
--- NOTE | 2019-09-16 09:31 | Diagnostic Imaging Report ---
EXAM: CHEST SINGLE (PORTABLE) DATE: 09/16/2019 7:28 AM INDICATION: Shortness of breath, respiratory distress, status post intubation. COMPARISON: 06/22/2019 FINDINGS: Endotracheal tube terminates approximately 4.9 cm above the mallory. The trachea is midline. There are increased interstitial markings present bilaterally as well as perihilar fullness. There is no evidence for large focal consolidation or pneumothorax. There is blunting of the left costophrenic angle and a trace effusion is possible. No significant volume of pleural effusion is present. The cardiomediastinal silhouette is stable in appearance. No acute osseous abnormalities identified. IMPRESSION: Increased interstitial opacities present bilaterally which are nonspecific but can be seen in the setting of edema. An atypical infectious/inflammatory process could have a similar appearance. Signed by: Dr. Patrick Horta MD on 09/16/2019 9:28 AM
[2019-09-16 10:10] LABS: CLARITY,URINE CLEAR (CLEAR); COLOR,URINE YELLOW (YELLOW); LEUKOCYTE ESTERASE ,URINE NEGATIVE (NEGATIVE); NITRITE,URINE NEGATIVE (NEGATIVE)
[2019-09-16 10:11] LABS: BILIRUBIN,URINE NEGATIVE (NEGATIVE); KETONES,URINE NEGATIVE (NEGATIVE); PROTEIN,URINE DIPSTICK >=300 (NEGATIVE); URINE UROBILINOGEN 0.2 mg/dL (0.2 - 1)
[2019-09-16 10:12] LABS: RBC,URINE >50 /HPF (0-5); WBC,URINE (MAN) 0-5 /HPF (0-5)
[2019-09-16 10:13] LABS: BACTERIA,URINE MANY /HPF
[2019-09-16 10:14] LABS: TRANSITIONAL EPI CELLS,URINE FEW
[2019-09-16 10:15] LABS: EPITHELIAL CELLS,URINE FEW /LPF
[2019-09-16] MEDS: METHYLPREDNISOLONE SOD SUCC 125 MG/2ML VIAL IV SCH ×2 (10:30→21:00)
[2019-09-16] MEDS: ALBUTEROL SULF 0.083% NEB SOLN 3 ML NEB NEB SCH ×5 (11:32→23:05)
[2019-09-16] MEDS: IPRATROPIUM BROMIDE 0.02% 2.5 ML NEB NEB SCH ×4 (11:32→23:05)
[2019-09-16] MEDS: PANTOPRAZOLE SOD 40 MG TABEC PO SCH (12:26)
[2019-09-16] MEDS ORDERED: HYDRALAZINE HCL 20 MG/ML VIAL IV PRN (12:30)
[2019-09-16] MEDS ORDERED: ONDANSETRON HCL INJ 2MG/ML 2ML 2 MG/ML VIAL IV PRN (12:30)
[2019-09-16] MEDS ORDERED: ACETAMINOPHEN 325 MG TAB PO PRN (12:30)
[2019-09-16] MEDS ORDERED: FUROSEMIDE INJ 10 MG/ML 4 ML VIAL ONE (12:33)
[2019-09-16 12:59] LABS: ABG HCO3 22 mmol/L (22-26); ABG PCO2 52 mmHg (35-45); ABG PH 7.23 (7.35-7.45); ABG PO2 116 mmHg (80-105)
[2019-09-16] MEDS ORDERED: CHLORASEPTIC SPRAY 177 ML BTL MM PRN (16:00)
[2019-09-16] MEDS ORDERED: SALIVA SUBSTITUTE 45 ML LIQD MM PRN (16:30)
[2019-09-16] MEDS: FAMOTIDINE 20 MG/2 ML VIAL IV SCH (17:03)
--- NOTE | 2019-09-16 19:00 | NUR ---
Report received. Assumed care. Assessment done. See interventions.
--- NOTE | 2019-09-16 21:30 | NUR ---
Flu swabs done and sent to lab.
[2019-09-17] VITALS (17 sets, daily range): BP systolic 109–135; BP diastolic 53–80
[2019-09-17 00:15] LABS: CREATINE KINASE MB 19.1 ng/mL (0-5.0)
[2019-09-17] MEDS: PIPER-TAZ 3.375 GM 50 ML IV SCH ×4 (00:26→18:00)
--- NOTE | 2019-09-17 00:45 | NUR ---
Cardiacs done at 2330. Results basically the same as earlier today.
[2019-09-17] MEDS: IPRATROPIUM BROMIDE 0.02% 2.5 ML NEB NEB SCH ×6 (03:15→23:30)
[2019-09-17] MEDS: ALBUTEROL SULF 0.083% NEB SOLN 3 ML NEB NEB SCH ×6 (03:30→23:30)
[2019-09-17 05:08] LABS: BASOPHILS % 0.2 % (0.0-1.0); HEMATOCRIT 39.3 % (34.2-44.1); HEMOGLOBIN 12.8 g/dL (12.0-16.0); LYMPHOCYTES # (AUTO) 0.2 (1.0-3.2); LYMPHOCYTES % 3.2 % (18.0-39.1); MEAN CORPUSCULAR HEMOGLOBIN 31.7 pg (28-32); MEAN CORPUSCULAR HGB CONC 32.6 g/dL (31-35); MEAN CORPUSCULAR VOLUME 97.3 fL (81-99); MONOCYTES % 0.6 % (4.4-11.3); NEUTROPHILS # (AUTO) 6.3 (2.1-6.9); NEUTROPHILS % 95.7 % (38.7-80.0); PLATELET COUNT 173 x10e3/uL (140-360); RED BLOOD COUNT 4.04 x10e6/uL (3.6-5.1); RED CELL DISTRIBUTION WIDTH 12.7 % (11.7-14.4)
[2019-09-17 05:27] LABS: ANION GAP 13.9 mmol/L (8-16); CALCIUM 7.5 mg/dL (8.4-10.2); CREATININE, SERUM 1.04 mg/dL (0.57-1.11); POTASSIUM 3.9 mmol/L (3.5-5.1)
--- NOTE | 2019-09-17 06:37 | Diagnostic Imaging Report ---
EXAMINATION: CHEST SINGLE (PORTABLE) COMPARISON: Chest x-ray 09/16/2019 INDICATION: ^resp failure ^[id number] ^0605 DISCUSSION: Frontal view of the chest obtained at 0605 hours. HEART AND MEDIASTINUM: The heart is normal in size. Stable calcifications of the aortic arch LINES: Endotracheal tube has been removed. LUNGS/PLEURA: Diffuse hyperinflation suggestive of small airways disease. Patchy airspace opacities in the upper lobes have diminished. There is persistent right lower lobe and retrocardiac airspace disease suggestive of atelectasis or pneumonia. Small bilateral pleural effusions. No pneumothorax. BONES AND SOFT TISSUES: Stable healed fracture deformity of the left clavicle. The soft tissues are normal. IMPRESSION: Multifocal infiltrates in the upper lung zones have improved. Persistent lower lobe airspace opacities, either atelectasis or pneumonia with small stable pleural effusions. Signed by: Dr. Valarie Garcia MD on 09/17/2019 6:33 AM
[2019-09-17] MEDS: FAMOTIDINE 20 MG/2 ML VIAL IV SCH ×2 (10:05→18:53)
[2019-09-17] MEDS: METHYLPREDNISOLONE SOD SUCC 40 MG/ML VIAL 1ML IV SCH ×2 (10:07→21:00)
[2019-09-17] MEDS: FUROSEMIDE INJ 10 MG/ML 4 ML VIAL IV SCH (10:07)
[2019-09-17] MEDS: PANTOPRAZOLE SOD 40 MG TABEC PO SCH (10:07)
--- NOTE | 2019-09-17 10:38 | Progress Note ---
DATE: Pulmonary Critical Care SUBJECTIVE: The patient received Solu-Medrol, Lasix yesterday in the Emergency Department. She was subsequently extubated. She feels better this morning, but remains on nasal cannula. An echocardiogram was done, which shows decreased ejection fraction as well as some mogx-ow-pmrjbbze mitral regurg and aortic insufficiency. PHYSICAL EXAMINATION: VITAL SIGNS: Blood pressure is 124/60, saturation is 96% on 4 L, and pulse is 104. HEENT: Shows no facial swelling or erythema. CARDIAC: Reveals regular rate and rhythm with normal S1, S2. LUNGS: Auscultation of lungs revealed crackles at the bases. There is a prolonged expiratory phase. ABDOMEN: Soft. Nontender. There is no rebound or guarding. EXTREMITIES: There is a femoral line in place. There is no leg edema or calf tenderness. There is no cyanosis or clubbing. SKIN: Shows no rashes. NEUROLOGIC: Shows no focal abnormalities. LABORATORY DATA: White blood cell count is 6.6, hemoglobin is 12.8, and the platelet count is 173. The BUN to creatinine ratio is 16 to 1.04. Other electrolytes are within normal limits. CBC is within normal limits. RADIOGRAPHIC DATA: Chest x-ray shows infiltrates that have improved since yesterday. IMPRESSION: 1. Izcks-qf-vewtkgn systolic congestive heart failure. 2. Shcbr-xo-mxirzbv respiratory failure. 3. Chronic obstructive pulmonary disease with exacerbation. 4. Hypertension. 5. History of pulmonary nodule. PLAN: 1. Continue diuretics and afterload reduction. 2. Taper Solu-Medrol. 3. Continue antibiotics until culture results are back. 4. Cardiology consultation. 5. Remove central line and place peripheral IVs. 6. Transfer out of Intensive Care Unit to Intermediate Care. Frtiz Rubi MD [facility]/MODL /[id number]
--- NOTE | 2019-09-17 15:47 | Diagnostic Imaging Report ---
EXAM: CT Chest WITHOUT intravenous contrast 09/17/2019 3:10 PM INDICATION: Pneumonia, pleural effusions COMPARISON: Chest radiograph of the same day TECHNIQUE: Chest was scanned utilizing a multidetector helical scanner from the lung apex through the level of the adrenal glands without administration of IV contrast. Coronal and sagittal reformations were obtained. Routine protocol was performed. IV CONTRAST: None RADIATION DOSE: Total DLP: 346 mGy*cm. Dose modulation, iterative reconstruction, and/or weight based adjustment of the mA/kV was utilized to reduce the radiation dose to as low as reasonably achievable. COMPLICATIONS: None FINDINGS: LINES/ TUBES: None. LUNGS AND AIRWAYS: The central airways are patent. Severe bilateral upper lobe predominant centrilobular and paraseptal emphysema. Biapical pleural parenchymal thickening/scarring. No focal consolidation or pulmonary edema. Minimal bibasilar dependent subsegmental atelectasis. Right lower lobe 7 mm pulmonary nodule (image 67). PLEURA: Small right pleural effusion. Trace left pleural effusion. No pneumothorax. HEART AND MEDIASTINUM: The thyroid gland is normal. No mediastinal, hilar or axillary lymphadenopathy. The heart is normal in size.. There is no pericardial effusion. Athetotic calcifications involve the aorta, coronary arteries, and proximal great vessels. UPPER ABDOMEN: No acute findings. BONES: Age-indeterminate T8 compression fracture. No suspicious lytic or blastic lesions. SOFT TISSUES: Unremarkable. IMPRESSION: No focal pneumonia or pulmonary edema. Small right pleural effusion and trace left pleural effusion. Severe upper lobe predominant centrilobular and paraseptal emphysema. 7 mm right lower lobe pulmonary nodule. Recommend follow-up chest CT in 12 months to assess for stability. Age-indeterminate T8 compression fracture. Signed by: Lita Tavarez MD on 09/17/2019 3:44 PM
--- NOTE | 2019-09-17 16:55 | Consultation ---
DATE OF CONSULTATION: 09/17/2019 Cardiology Consultation Thank you so much for asking me to see this nice lady again in consultation. Ms. Munoz is a very elderly and complex 74-year-old lady, who presented to the emergency room with a complaint of shortness of breath requiring intubation and mechanical ventilation. HISTORY OF PRESENT ILLNESS: The patient reports that she felt that her furosemide was not working and it was changed to triamterene/hydrochlorothiazide a couple weeks ago. She became more short of breath and presented to the hospital. She denies any chest pain or palpitations. PAST MEDICAL HISTORY: Significant for longstanding COPD. She reports that she had smoked for more than 55 years intermittently stopping, but now apparently stopping smoking in 2019 finally. MEDICATIONS: Recent home medications include losartan 50 mg daily, verapamil ER 240 mg daily, and triamterene/hydrochlorothiazide 37.5/25 daily. PERSONAL AND SOCIAL HISTORY: The patient reports that she "loves to drink beer." She will have a beer at a [employer] restaurant and have 2 or 3 or so each day at home. REVIEW OF SYSTEMS: CARDIAC: The patient has not had any chest pain or palpitations. She was first known to have cardiomyopathy when she was hospitalized here in October of 2018, at which time, her EF was 30% to 35%, but new echocardiogram shows EF reported less than 20%. LABORATORIES: Relatively unremarkable. Cardiac enzymes are negative. ASSESSMENT: 1. End-stage lung disease. 2. 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 I have discussed stopping drinking beer. We will follow closely with you. Thank you for asking me to see her in consultation. MD ANUP Luke/SAKSHIL /[id number] cc: MD Fritz Ratliff MD
--- NOTE | 2019-09-17 17:23 | NUR ---
ct chest completed. pt in chair all afternoon. tolerating oob well. ekg done. benavides catheter and right femoral line removed. no difficulties. pt doing well.
[2019-09-17] MEDS ORDERED: SODIUM CHLORIDE 0.9% 250ML 250 ML ONE (18:12)
[2019-09-17 18:30] LABS: MAGNESIUM 1.4 MG/DL (1.3-2.1); PHOSPHORUS 2.4 MG/DL (2.3-4.7)
[2019-09-18] VITALS (7 sets, daily range): BP systolic 121–139; BP diastolic 72–90
[2019-09-18] MEDS: PIPER-TAZ 3.375 GM 50 ML IV SCH ×4 (01:13→18:26)
[2019-09-18] MEDS: IPRATROPIUM BROMIDE 0.02% 2.5 ML NEB NEB SCH ×6 (03:30→23:40)
[2019-09-18] MEDS: ALBUTEROL SULF 0.083% NEB SOLN 3 ML NEB NEB SCH ×6 (03:30→23:00)
[2019-09-18 05:19] LABS: BASOPHILS % 0.1 % (0.0-1.0); HEMOGLOBIN 12.9 g/dL (12.0-16.0); LYMPHOCYTES # (AUTO) 0.2 (1.0-3.2); LYMPHOCYTES % 2.3 % (18.0-39.1); MEAN CORPUSCULAR HEMOGLOBIN 31.9 pg (28-32); MEAN CORPUSCULAR HGB CONC 33.1 g/dL (31-35); MEAN CORPUSCULAR VOLUME 96.5 fL (81-99); MONOCYTES # (AUTO) 0.3 (0.2-0.8); MONOCYTES % 2.7 % (4.4-11.3); NEUTROPHILS # (AUTO) 10.1 (2.1-6.9); NEUTROPHILS % 94.4 % (38.7-80.0); PLATELET COUNT 176 x10e3/uL (140-360); RED BLOOD COUNT 4.04 x10e6/uL (3.6-5.1); RED CELL DISTRIBUTION WIDTH 12.8 % (11.7-14.4)
[2019-09-18 06:02] LABS: ANION GAP 13.7 mmol/L (8-16); CALCIUM 7.4 mg/dL (8.4-10.2); CREATININE, SERUM 1.04 mg/dL (0.57-1.11); POTASSIUM 3.7 mmol/L (3.5-5.1)
[2019-09-18] MEDS: FUROSEMIDE INJ 10 MG/ML 4 ML VIAL IV SCH (11:20)
[2019-09-18] MEDS: FAMOTIDINE 20 MG/2 ML VIAL IV SCH ×2 (11:20→18:26)
[2019-09-18] MEDS: CARVEDILOL 3.125 MG TAB PO SCH ×2 (11:20→18:26)
[2019-09-18] MEDS: PANTOPRAZOLE SOD 40 MG TABEC PO SCH (11:20)
[2019-09-18] MEDS: METHYLPREDNISOLONE SOD SUCC 40 MG/ML VIAL 1ML IV SCH ×2 (11:20→21:45)
--- NOTE | 2019-09-18 16:05 | Progress Note ---
DATE: SUBJECTIVE: The patient is feeling better. She was seen by Cardiology. She was started on Coreg and given additional Lasix. PHYSICAL EXAMINATION: VITAL SIGNS: The patient is afebrile. The vital signs are stable. CARDIAC: Reveals regular rate and rhythm with normal S1 and S2. LUNGS: Auscultation of lungs reveals clear breath sounds bilaterally. There is no wheezing. ABDOMEN: Soft and nontender. There is no rebound or guarding. EXTREMITIES: Shows no leg edema or calf tenderness. There is no cyanosis or clubbing. SKIN: Shows no rashes. IMPRESSION: 1. Kknoh-qj-yhqkzzm systolic congestive heart failure. 2. Mciof-mx-lixgqoe respiratory failure. 3. Chronic obstructive pulmonary disease. 4. Hypertension. 5. Pulmonary nodule. PLAN: 1. Continue diuretics. 2. Continue Coreg. 3. Continue physical therapy. 4. Possible discharge home tomorrow. MD VIRGINIA Conway/DELFIN /[id number]
--- NOTE | 2019-09-18 18:14 | NUR ---
Discontinuing PT services since patient is Mod I in functional mobility.Thank you. Addendum: 09/18/19 at 1815 by Cain arteaga PT Amended: Links added.
--- NOTE | 2019-09-18 21:40 | NUR ---
Report called to LIBRADO Brady. Patient aware and agreeable to transfer and plan of care.
--- NOTE | 2019-09-18 22:12 | NUR ---
Patient transferred to room 215 via wheelchair. VSS, no s/s or c/o distress at this time. Receiving nurse notified that patient was being placed into room at the nurse's station. All belongings accounted for prior to depart.
[2019-09-19 00:47] VITALS: BP 139/96
[2019-09-19] MEDS: ALBUTEROL SULF 0.083% NEB SOLN 3 ML NEB NEB SCH ×3 (03:00→11:00)
[2019-09-19] MEDS: IPRATROPIUM BROMIDE 0.02% 2.5 ML NEB NEB SCH ×3 (03:15→11:00)
[2019-09-19 05:51] VITALS: BP 137/85
[2019-09-19] MEDS: PIPER-TAZ 3.375 GM 50 ML IV SCH ×3 (06:00→11:42)
[2019-09-19 06:36] LABS: HEMATOCRIT 41.9 % (34.2-44.1); HEMOGLOBIN 13.7 g/dL (12.0-16.0); LYMPHOCYTES # (AUTO) 0.3 (1.0-3.2); LYMPHOCYTES % 3.3 % (18.0-39.1); MEAN CORPUSCULAR HEMOGLOBIN 32.1 pg (28-32); MEAN CORPUSCULAR HGB CONC 32.7 g/dL (31-35); MEAN CORPUSCULAR VOLUME 98.1 fL (81-99); MONOCYTES # (AUTO) 0.2 (0.2-0.8); MONOCYTES % 2.3 % (4.4-11.3); NEUTROPHILS # (AUTO) 9.4 (2.1-6.9); NEUTROPHILS % 93.7 % (38.7-80.0); PLATELET COUNT 183 x10e3/uL (140-360); RED BLOOD COUNT 4.27 x10e6/uL (3.6-5.1); RED CELL DISTRIBUTION WIDTH 12.9 % (11.7-14.4)
[2019-09-19 06:57] LABS: ALANINE AMINOTRANSFERASE 15 IU/L (0-55); ALBUMIN 2.9 g/dL (3.5-5.0); ALBUMIN/GLOBULIN RATIO 1.1 (0.8-2.0); ALKALINE PHOSPHATASE 27 IU/L (40-150); BLOOD UREA NITROGEN 22 mg/dL (7-26); BUN/CREATININE RATIO 27 (6-25); CALCIUM 7.2 mg/dL (8.4-10.2); CARBON DIOXIDE 27 mmol/L (22-29); CHLORIDE 99 mmol/L (98-107); CREATININE, SERUM 0.82 mg/dL (0.57-1.11); EST GLOMERULAR FILTRATION RATE > 60 ML/MIN (60-); GLUCOSE 134 mg/dL (74-118); SODIUM 133 mmol/L (136-145)
[2019-09-19 07:47] VITALS: BP 135/72
[2019-09-19 09:00] VITALS: BP 135/72
[2019-09-19] MEDS: PANTOPRAZOLE SOD 40 MG TABEC PO SCH (09:11)
[2019-09-19] MEDS: FUROSEMIDE INJ 10 MG/ML 4 ML VIAL IV SCH (09:11)
[2019-09-19] MEDS: FAMOTIDINE 20 MG/2 ML VIAL IV SCH (09:11)
[2019-09-19] MEDS: METHYLPREDNISOLONE SOD SUCC 40 MG/ML VIAL 1ML IV SCH (09:11)
[2019-09-19] MEDS: CARVEDILOL 3.125 MG TAB PO SCH (09:12)
[2019-09-19 11:12] VITALS: BP 124/84
[2019-09-19] MEDS ORDERED: COREG3.125 MG PO (11:43)
[2019-09-19] MEDS ORDERED: FUROSEMIDE40 MG PO (11:43)
[2019-09-19] MEDS ORDERED: PREDNISONE20 MG PO (11:43)
--- NOTE | 2019-09-19 11:58 | NUR ---
IMM letter delivered and explained to pt. She stated she was ready to go home. Signed copy placed in chart. Copy to pt.
--- NOTE | 2019-09-19 13:20 | NUR ---
AAOX3. ACYANOTIC. PATIENT CURRENTLY WAITING ON RIDE FROM HOSPITAL. INSTRUCTED TO USE CALL LIGHT ONCE RIDE IS OUTSIDE. VERBALIZED UNDERSTANDING. INSTRUCTED PATIENT TO REQUEST THAT FAMILY MEMBER BRINGS PORTABLE O2 TO HOSPITAL FOR HER TO ENSURE SAFE DISCHARGE. PT VERBALIZED UNDERSTANDING.
--- NOTE | 2019-09-19 13:29 | Progress Note ---
DATE: SUBJECTIVE: The patient feels better. She is eager to go home. She is not complaining of dyspnea. She denies chest pain. PHYSICAL EXAMINATION: VITAL SIGNS: Blood pressure is 124/84 and the saturation is 99% on 3 L. HEENT: Shows no facial swelling or erythema. CARDIAC: Reveals regular rate and rhythm with normal S1, S2. LUNGS: Auscultation of lungs reveals crackles at the bases. There is no wheezing. ABDOMEN: Soft and nontender. There is no rebound or guarding. EXTREMITIES: Shows 1+ edema bilaterally. LABORATORY DATA: White blood cell count is 10.03 and hemoglobin is 13.7, and platelet count is 183. BUN to creatinine ratio is 22 to 0.82 and the sodium is 133. Albumin is 2.9. IMPRESSION: 1. Acute on chronic respiratory failure. 2. Acute on chronic systolic congestive heart failure. 3. Chronic obstructive pulmonary disease. 4. Hypertension. PLAN: 1. Discharge home today. 2. Continue oxygen and bronchodilators at home. 3. Continue diuretics. 4. The patient is started on low-dose Coreg. Fritz Rubi MD [facility] /[id number]
--- NOTE | 2019-09-20 00:51 | Discharge Summary ---
ADMISSION DIAGNOSES: [id number] systolic congestive heart failure with respiratory distress and subsequent respiratory failure, acute exacerbation of chronic obstructive pulmonary disease with respiratory distress and subsequent respiratory failure, hypertension. DISCHARGE DIAGNOSES: [id number] systolic congestive heart failure with respiratory distress and subsequent respiratory failure, acute exacerbation of chronic obstructive pulmonary disease with respiratory distress and subsequent respiratory failure, hypertension, rule out coronavirus disease 2019. HISTORY: Chronic systolic CHF, COPD with 3 L/minute nasal cannula at home, hypertension, chronic back pain, osteoporosis. SURGICAL HISTORY: Hernia repair. FAMILY HISTORY: Noncontributory. SOCIAL HISTORY: Former smoker. The patient initially denied drinking alcohol, but after further investigation, the patient drinks alcohol on a regular basis. HOSPITAL COURSE: A 74-year-old female admits with complaints of shortness of breath after waking up and walking to the restroom. She used her inhalers with no relief. She also complains of bilateral lower extremity edema for few weeks and dry cough. She denies fever. On admission, the patient was given Lasix IV. She was intubated, given IV Solu-Medrol. Chest x-ray showed increased interstitial opacities present bilaterally, which are nonspecific, but could be seen in the setting of edema. CT of the chest showed no pneumonia or edema, small right pleural effusion and trace left pleural effusion, severe upper lobe emphysema, 7 mm right lower lobe pulmonary nodule. The patient was advised to follow up with a CT of the chest in 12 months. BNP was 907 on admission. Echo showed an EF of less than 20%. Coronavirus was negative. Flu was negative. Troponins were negative x3. Pulmonology and Cardiology were consulted. On discharge, the patient was given new prescriptions for Coreg and Lasix per Cardiology recommendation. She was also given a prescription for steroids to taper down at home. The patient is feeling much better and is excited to discharge home. She will follow up with primary care, Pulmonology, and Cardiology in 1 to 2 weeks. The patient understands instructions and agrees to plan. Vital signs stable, the patient is afebrile. Dictated by Christina Ramires NP MD [facility] /[id number]
== END 2019-09-19 13:48 | disposition home or self-care (01) | DRG 291 ==
LOC: ER 06:02 → ERHOLD 07:02 → ICU 13:49 → MED/SURG2 09-18 22:14
PROVIDERS: ADMIT Internal Medicine; ATTEND Internal Medicine
DX: I11.0 Hypertensive heart disease with heart failure (principal); J96.20 Acute and chronic respiratory failure, unspecified whether with hypoxia or hypercapnia; I50.23 Acute on chronic systolic (congestive) heart failure; Z03.818 Encounter for observation for suspected exposure to other biological agents ruled out; J43.9 Emphysema, unspecified; M81.0 Age-related osteoporosis without current pathological fracture; R91.1 Solitary pulmonary nodule; I08.0 Rheumatic disorders of both mitral and aortic valves
CPT/HCPCS: 31500; 36415; 36555; 36600; 51700; 71045; 71250; 80053; 81001; 82550; 82553; 82805; 83605; 83735; 83880; 84100; 84484; 85025; 85610; 87040; 87400; 87635; 93005; 93306; 94002; 94640; 94660; 96360; 97139; 99251; 99284; J1940; J2543; J2920; J2930; J7030; J7050

== ENCOUNTER 2020-02-26 11:18 | Emergency (ER) | payer MEDICARE, BC ==
[~2020-02-26] VITALS: Ht 152.4 cm; Wt 54.9 kg
[~2020-02-26 11:18] MED LIST changes: +COREG3.125 MG PO; +FUROSEMIDE40 MG PO
--- NOTE | 2020-02-26 12:03 | Emergency Department Note ---
History of Present Illnes History of Present Illness Chief Complaint: Genitourinary History of Present Illness This is a 74 year old female Chief Complaint Comment PATIENT IN FROM HOME WITH COMPLAINTS OF URINARY FREQUENCY, BURNING, AND INCOMPLETE EMPTYING X 2 DAYS. DENIES PAIN AT THIS TIME, BUT STATES PAIN IS 10/10 WHEN TRYING TO URINATE. Historian: Patient Arrival Mode: Car Geophysical Party Chief Required: No Onset (how long ago): day(s) (2) Location: Urethra Quality: sharp Radiation: Reports non-radiation Severity: moderate Onset quality: gradual Duration (how long): day(s) (2) Timing of current episode: intermittent Progression: worsening Chronicity: new Context: Denies recent illness, Denies recent surgery Relieving factors: none Exacerbating factors: none Associated symptoms: Reports denies other symptoms Treatments prior to arrival: none Past Medical/Family History Physician Review I have reviewed the patient's past medical and family history. Any updates have been documented here. Past Medical History Recent Fever: No Clinical Suspicion of Infectio: Yes New/Unexplained Change in Ment: No Past Medical History: Hypertension, COPD, CHF, Asthma, UTI's, Depression, GERD, Chronic Back Pain, Osteoarthritis Other Medical History: osteoporosis Past Surgical History: Hernia Repair Other Surgery: COLONOSCOPY Social History Physically hurt or threatened: No Other Last Tetanus: unknown Review of Systems Review of Systems Constitutional: Reports no symptoms EENTM: Reports no symptoms Cardiovascular: Reports no symptoms Respiratory: Reports no symptoms Gastrointestinal: Reports no symptoms Genitourinary: Reports as per HPI, Reports dysuria Musculoskeletal: Reports no symptoms Integumentary: Reports no symptoms Neurological: Reports no symptoms Psychological: Reports no symptoms Endocrine: Reports no symptoms Hematological/Lymphatic: Reports no symptoms Physical Exam Related Data Allergies: Coded Allergies: Iodinated Contrast Media (Verified Allergy, Mild, hives, 02/26/20) Sulfa (Sulfonamide Antibiotics) (Verified Allergy, Unknown, 02/26/20) Triage Vital Signs Vital Signs Date Time Temp Pulse Resp B/P (MAP) Pulse Ox O2 Delivery O2 Flow Rate FiO2 02/26/20 11:39 97.8 91 22 184/100 93 Room Air Vital signs reviewed: Yes Physical Exam CONSTITUTIONAL Constitutional: Present well-developed, Present well-nourished HENT HENT: Present normocephalic, Present atraumatic, Present oropharynx clear/moist, Present nose normal HENT L/R: Present left ext ear normal, Present right ext ear normal EYES Eyes: Reports PERRL, Reports conjunctivae normal NECK Neck: Present ROM normal PULMONARY Pulmonary: Present effort normal, Present breath sounds normal CARDIOVASCULAR Cardiovascular: Present regular rhythm, Present heart sounds normal, Present capillary refill normal, Present normal rate GASTROINTESTINAL Abdominal: Present soft, Present nontender, Present bowel sounds normal GENITOURINARY Genitourinary: Present exam deferred SKIN Skin: Present warm, Present dry MUSCULOSKELETAL Musculoskeletal: Present ROM normal NEUROLOGICAL Neurological: Present alert, Present oriented x 3, Present no gross motor or sensory deficits PSYCHOLOGICAL Psychological: Present mood/affect normal, Present judgement normal Results Laboratory Lab results reviewed: Yes Assessment & Plan Medical Decision Making MDM 74 y.o F presents for dysuria x 2 days. Exam is benign, VSS, WNL. UA shows nitrite + urine. Will DC home on Keflex. UC sent and she will f/u w/ PCP. Appropriate for DC. Reassessment Reassessment time: 12:40 Reassessment Well appearing, NAD Assessment & Plan Final Impression: (1) UTI (urinary tract infection) Depart Disposition: HOME, SELF-CARE Last Vital Signs Date Time Temp Pulse Resp B/P (MAP) Pulse Ox O2 Delivery O2 Flow Rate FiO2 02/26/20 11:39 97.8 91 22 184/100 93 Room Air Home Meds Active Scripts Prednisone (PREDNISONE) 20 Mg Tab, 10 MG PO UD for 9 Days TAKE 20MG PO BID X3 DAYS THEN TAKE 10MG PO BID X3 DAYS THEN TAKE 10MG PO DAILY X3 DAYS THEN STOP Prov:ULISES PÉREZ DRESS DRAPER 09/19/19 Furosemide (FUROSEMIDE) 40 Mg Tablet, 40 MG PO Daily, #30 TAB Prov:ULISES PÉREZ [employer]ER 09/19/19 Carvedilol (COREG) 3.125 Mg Tab, 3.125 MG PO BID for 30 Days, TAB Prov:ULISES PÉREZ [employer]ER 09/19/19 Albuterol Sulfate (ALBUTEROL SULFATE) 2.5 Mg/3 Ml Vial.neb, 3 ML NEB RQ4H for 14 Days, #90 VIAL Prov:RAMBO BLAKE [employer]ESS DR[employer]ER 06/22/ Ipratropium [place] (IPRATROPIUM BROMIDE) 0.2 Mg/1 Ml Solution, 2.5 ML NEB RQ4H for 14 Days, #90 VIAL Prov:RAMBO BLAKE [place] [employer]ESS DR[employer]ER 06/23/19 Reported Medications Tiotropium [place] (Spiriva Respimat) 4 Gm Mist.inhal, 1.25 MCG 06/21/19 Vitamin B Complex (B COMPLEX) 1 Each Tablet 06/21/19 Calcium Carbonate/Vitamin D3 (OYSCO 500+D TABLET) 1 Each Tablet 11/04/18 Omeprazole (OMEPRAZOLE) 20 Mg Tablet., 20 MG PO DAILY 10/24/12 KURTIS ESCOBEDO MD Feb 26, 2020 12:03
[2020-02-26 12:28] LABS: BILIRUBIN,URINE NEGATIVE (NEGATIVE); CLARITY,URINE CLOUDY (CLEAR); COLOR,URINE YELLOW (YELLOW); KETONES,URINE NEGATIVE (NEGATIVE); LEUKOCYTE ESTERASE ,URINE LARGE (NEGATIVE); NITRITE,URINE POSITIVE (NEGATIVE); PROTEIN,URINE DIPSTICK >=300 (NEGATIVE); URINE UROBILINOGEN 1 mg/dL (0.2 - 1)
[2020-02-26 12:32] LABS: BACTERIA,URINE MANY /HPF; EPITHELIAL CELLS,URINE MODERATE /LPF; RBC,URINE 21-50 /HPF (0-5); WBC,URINE (MAN) >50 /HPF (0-5)
[2020-02-26 13:01] VITALS: BP 183/86
== END 2020-02-26 13:03 | disposition home or self-care (01) ==
LOC: ER 11:45
DX: N39.0 Urinary tract infection, site not specified (principal); R30.0 Dysuria; I10 Essential (primary) hypertension; I50.9 Heart failure, unspecified; J44.9 Chronic obstructive pulmonary disease, unspecified; F32.9 Major depressive disorder, single episode, unspecified
CPT/HCPCS: 81001; 87086; 87186; 99283

== ENCOUNTER 2021-05-24 20:42 | Inpatient (IN) | payer MEDICARE, BC ==
[~2021-05-24] VITALS: Ht 152.4 cm; Wt 54.9 kg
[2021-05-24] MEDS ORDERED: CEFTRIAXONE 2 GM in SODIUM CHLORIDE 0.9% 100 ML IV ONE (21:00)
[2021-05-24] MEDS ORDERED: ACETAMINOPHEN 325 MG TAB PO ONE (21:00)
[2021-05-24] MEDS ORDERED: ACETAMINOPHEN 325 MG TAB ONE (21:22)
[2021-05-24] MEDS ORDERED: CEFTRIAXONE 2 GM VIAL ONE (21:23)
[2021-05-24] MEDS ORDERED: SODIUM CHLORIDE 0.9% 100 ML ONE (21:23)
[2021-05-24 21:38] LABS: BASOPHILS # (AUTO) 0.1 (0.0-0.1); BASOPHILS % 0.3 % (0.0-1.0); HEMATOCRIT 48.3 % (34.2-44.1); HEMOGLOBIN 15.8 g/dL (12.0-16.0); LYMPHOCYTES # (AUTO) 0.6 (1.0-3.2); LYMPHOCYTES % 3.4 % (18.0-39.1); MEAN CORPUSCULAR HEMOGLOBIN 31.6 pg (28-32); MEAN CORPUSCULAR HGB CONC 32.7 g/dL (31-35); MEAN CORPUSCULAR VOLUME 96.6 fL (81-99); MONOCYTES # (AUTO) 0.6 (0.2-0.8); MONOCYTES % 3.5 % (4.4-11.3); NEUTROPHILS % 91.7 % (38.7-80.0); PLATELET COUNT 159 x10e3/uL (140-360); RED CELL DISTRIBUTION WIDTH 12.7 % (11.7-14.4)
[2021-05-24 21:54] LABS: ALBUMIN 3.6 g/dL (3.5-5.0); ALBUMIN/GLOBULIN RATIO 0.8 (0.8-2.0); ANION GAP 18.3 mmol/L (8-16); CALCIUM 9.3 mg/dL (8.4-10.2); CREATININE, SERUM 0.85 mg/dL (0.57-1.11); POTASSIUM 4.3 mmol/L (3.5-5.1)
[2021-05-24 22:01] LABS: B-TYPE NATRIURETIC PEPTIDE2 72.2 pg/mL (0-100)
[2021-05-24] MEDS ORDERED: METHYLPREDNISOLONE SOD SUCC 125 MG/2ML VIAL IV ONE (22:15)
[2021-05-24] MEDS ORDERED: SODIUM CHLORIDE 0.9% 1000ML 1,000 ML IV SCH (22:30)
[2021-05-24] MEDS ORDERED: METOPROLOL TARTRATE INJ 1 MG/ML VIAL IV ONE (22:45)
[2021-05-24 23:50] VITALS: BP 131/73
[2021-05-24 23:51] VITALS: BP 131/73
[2021-05-25] VITALS (12 sets, daily range): BP systolic 121–162; BP diastolic 71–105
[2021-05-25] MEDS: IPRATROPIUM BROMIDE 0.02% 2.5 ML NEB NEB SCH ×4 (01:35→18:55)
[2021-05-25] MEDS: ALBUTEROL SULF 0.083% NEB SOLN 3 ML NEB NEB SCH ×7 (01:36→22:30)
[2021-05-25] MEDS ORDERED: LOSARTAN POTAS100 MG PO (02:52)
[2021-05-25 05:20] LABS: BASOPHILS % 0.2 % (0.0-1.0); HEMATOCRIT 46.1 % (34.2-44.1); LYMPHOCYTES # (AUTO) 0.3 (1.0-3.2); LYMPHOCYTES % 1.9 % (18.0-39.1); MEAN CORPUSCULAR HEMOGLOBIN 31.6 pg (28-32); MEAN CORPUSCULAR HGB CONC 32.5 g/dL (31-35); MEAN CORPUSCULAR VOLUME 97.1 fL (81-99); MONOCYTES # (AUTO) 0.2 (0.2-0.8); MONOCYTES % 1.4 % (4.4-11.3); NEUTROPHILS # (AUTO) 13.8 (2.1-6.9); NEUTROPHILS % 93.8 % (38.7-80.0); PLATELET COUNT 149 x10e3/uL (140-360); RED BLOOD COUNT 4.75 x10e6/uL (3.6-5.1); RED CELL DISTRIBUTION WIDTH 12.8 % (11.7-14.4)
[2021-05-25 05:43] LABS: ANION GAP 15.3 mmol/L (8-16); CALCIUM 8.8 mg/dL (8.4-10.2); CREATININE, SERUM 0.99 mg/dL (0.57-1.11); POTASSIUM 4.3 mmol/L (3.5-5.1)
[2021-05-25 05:44] LABS: ALBUMIN 2.9 g/dL (3.5-5.0); ALBUMIN/GLOBULIN RATIO 0.7 (0.8-2.0)
[2021-05-25 06:04] LABS: CREATINE KINASE MB 3.7 ng/mL (0-5.0)
[2021-05-25] MEDS ORDERED: CARVEDILOL 3.125 MG TAB PO SCH (09:00)
[2021-05-25] MEDS ORDERED: CEFTRIAXONE 1 GM in SODIUM CHLORIDE 0.9% 50ML 50 ML IV SCH (09:00)
[2021-05-25] MEDS: PANTOPRAZOLE SOD 40 MG TABEC PO SCH (10:01)
[2021-05-25] MEDS: LOSARTAN POTASSIUM 100 MG TAB PO SCH (10:02)
[2021-05-25] MEDS: FUROSEMIDE 40 MG TAB PO SCH (10:03)
[2021-05-25] MEDS: PREDNISONE 10 MG TAB PO SCH (13:46)
[2021-05-25] MEDS: FOLIC ACID 1 MG TAB PO SCH (13:46)
[2021-05-25] MEDS: THIAMINE HCL 100 MG TAB PO SCH (14:05)
[2021-05-25 15:53] LABS: CREATINE KINASE MB 2.7 ng/mL (0-5.0)
[2021-05-25] MEDS ORDERED: ALBUTEROL/IPRATROPIUM 3 ML NEB ONE (16:10)
[2021-05-25] MEDS: CARVEDILOL 12.5 MG TAB PO SCH (16:41)
[2021-05-25] MEDS: AZITHROMYCIN 250 MG TAB PO SCH (21:27)
[2021-05-26] MEDS: ALBUTEROL SULF 0.083% NEB SOLN 3 ML NEB NEB SCH ×5 (02:28→15:08)
[2021-05-26] MEDS: IPRATROPIUM BROMIDE 0.02% 2.5 ML NEB NEB SCH ×3 (02:28→15:05)
[2021-05-26 04:00] VITALS: BP 137/82
[2021-05-26 05:19] VITALS: BP 137/82
[2021-05-26 05:26] LABS: BASOPHILS % 0.1 % (0.0-1.0); HEMATOCRIT 39.5 % (34.2-44.1); HEMOGLOBIN 12.9 g/dL (12.0-16.0); LYMPHOCYTES # (AUTO) 0.8 (1.0-3.2); LYMPHOCYTES % 5.3 % (18.0-39.1); MEAN CORPUSCULAR HEMOGLOBIN 31.2 pg (28-32); MEAN CORPUSCULAR HGB CONC 32.7 g/dL (31-35); MEAN CORPUSCULAR VOLUME 95.6 fL (81-99); MONOCYTES # (AUTO) 0.6 (0.2-0.8); MONOCYTES % 4.5 % (4.4-11.3); NEUTROPHILS # (AUTO) 12.7 (2.1-6.9); NEUTROPHILS % 89.5 % (38.7-80.0); PLATELET COUNT 167 x10e3/uL (140-360); RED BLOOD COUNT 4.13 x10e6/uL (3.6-5.1); RED CELL DISTRIBUTION WIDTH 12.7 % (11.7-14.4)
[2021-05-26 05:58] LABS: ALBUMIN 2.5 g/dL (3.5-5.0); ALBUMIN/GLOBULIN RATIO 0.7 (0.8-2.0); ANION GAP 12.2 mmol/L (8-16); CALCIUM 8.1 mg/dL (8.4-10.2); CREATININE, SERUM 0.86 mg/dL (0.57-1.11); POTASSIUM 4.2 mmol/L (3.5-5.1)
[2021-05-26 06:15] LABS: CHOL/HDL RATIO 2.1 (3.0-3.6)
[2021-05-26 08:01] VITALS: BP 145/70
[2021-05-26] MEDS: AZITHROMYCIN 250 MG TAB PO SCH (08:27)
[2021-05-26] MEDS: PANTOPRAZOLE SOD 40 MG TABEC PO SCH (08:27)
[2021-05-26] MEDS: THIAMINE HCL 100 MG TAB PO SCH (08:27)
[2021-05-26] MEDS: PREDNISONE 10 MG TAB PO SCH (08:28)
[2021-05-26] MEDS: CEFUROXIME AXETIL 250 MG TAB PO SCH ×2 (08:28→16:01)
[2021-05-26] MEDS: CARVEDILOL 12.5 MG TAB PO SCH ×2 (08:28→16:01)
[2021-05-26] MEDS: LOSARTAN POTASSIUM 100 MG TAB PO SCH (08:29)
[2021-05-26] MEDS: FOLIC ACID 1 MG TAB PO SCH (08:29)
[2021-05-26] MEDS: FUROSEMIDE 40 MG TAB PO SCH (08:30)
[2021-05-26 09:00] VITALS: BP 145/70
[2021-05-26 11:04] VITALS: BP 128/67
[2021-05-26] MEDS ORDERED: COREG12.5 MG PO (13:29)
[2021-05-26] MEDS ORDERED: AZITHROMYCIN250 MG PO (13:29)
[2021-05-26] MEDS ORDERED: CEFUROXIME250 MG PO (13:29)
[2021-05-26 15:10] VITALS: BP 147/66
== END 2021-05-26 19:41 | disposition home or self-care (01) | DRG 871 ==
LOC: ER 20:57 → ERHOLD 22:21 → MED/SURG3 23:23
PROVIDERS: ADMIT Internal Medicine; ATTEND Internal Medicine
DX: A41.9 Sepsis, unspecified organism (principal); I50.23 Acute on chronic systolic (congestive) heart failure; J18.9 Pneumonia, unspecified organism; J44.0 Chronic obstructive pulmonary disease with (acute) lower respiratory infection; J44.1 Chronic obstructive pulmonary disease with (acute) exacerbation; I42.9 Cardiomyopathy, unspecified; E87.1 Hypo-osmolality and hyponatremia; R65.20 Severe sepsis without septic shock; I11.0 Hypertensive heart disease with heart failure; F10.20 Alcohol dependence, uncomplicated; Z86.16 Personal history of COVID-19; Z87.891 Personal history of nicotine dependence; Z20.822 Contact with and (suspected) exposure to COVID-19
CPT/HCPCS: 36415; 71045; 80053; 80061; 82550; 82553; 83036; 83605; 83880; 84443; 84484; 85025; 87040; 93005; 93306; 94640; 94799; 99284; J0456; J0696; J2930; J3411; J7030; J7050; J7512; U0002

== ENCOUNTER 2022-06-21 09:20 | Inpatient (IN) | payer MEDICARE, BC ==
[~2022-06-21] VITALS: Ht 152.4 cm; Wt 54.9 kg
[~2022-06-21 09:20] MED LIST changes: +AZITHROMYCIN250 MG PO; +CEFUROXIME250 MG PO; +COREG12.5 MG PO
[2022-06-21 10:20] LABS: BASOPHILS % 0.8 % (0.0-1.0); EOSINOPHILS # (AUTO) 0.1 (0.0-0.4); EOSINOPHILS % 1.6 % (0.0-6.0); HEMATOCRIT 32.8 % (34.2-44.1); HEMOGLOBIN 11.1 g/dL (12.0-16.0); LYMPHOCYTES # (AUTO) 0.6 (1.0-3.2); LYMPHOCYTES % 11.7 % (18.0-39.1); MEAN CORPUSCULAR HEMOGLOBIN 30.6 pg (28-32); MEAN CORPUSCULAR HGB CONC 33.8 g/dL (31-35); MEAN CORPUSCULAR VOLUME 90.4 fL (81-99); MONOCYTES # (AUTO) 0.7 (0.2-0.8); NEUTROPHILS # (AUTO) 3.6 (2.1-6.9); NEUTROPHILS % 70.1 % (38.7-80.0); PLATELET COUNT 218 x10e3/uL (140-360); RED BLOOD COUNT 3.63 x10e6/uL (3.6-5.1); RED CELL DISTRIBUTION WIDTH 13.3 % (11.7-14.4)
[2022-06-21 11:22] LABS: CLARITY,URINE SL CLOUDY (CLEAR); COLOR,URINE YELLOW (YELLOW)
[2022-06-21 11:23] LABS: KETONES,URINE NEGATIVE (NEGATIVE); LEUKOCYTE ESTERASE ,URINE NEGATIVE (NEGATIVE); NITRITE,URINE NEGATIVE (NEGATIVE); PROTEIN,URINE DIPSTICK 1+ (NEGATIVE); URINE UROBILINOGEN 0.2 mg/dL (0.2 - 1)
[2022-06-21 11:32] LABS: ALBUMIN 2.8 g/dL (3.5-5.0); ALBUMIN/GLOBULIN RATIO 0.8 (0.8-2.0); ANION GAP 13.9 mmol/L (8-16); CALCIUM 8.2 mg/dL (8.4-10.2); CREATININE, SERUM 1.41 mg/dL (0.57-1.11); POTASSIUM 4.9 mmol/L (3.5-5.1)
[2022-06-21 11:38] LABS: BACTERIA,URINE MODERATE /HPF; EPITHELIAL CELLS,URINE FEW /LPF; RBC,URINE 0-5 /HPF (0-5); TRANSITIONAL EPI CELLS,URINE FEW; WBC,URINE (MAN) 0-5 /HPF (0-5)
[2022-06-21] MEDS ORDERED: SODIUM CHLORIDE 0.9% 1000ML 1,000 ML IV SCH ×2 (12:00→17:00)
[2022-06-21] MEDS ORDERED: ASPIRIN 325 MG TAB EC PO STA (12:08)
[2022-06-21 13:59] LABS: INR 1.35; PROTHROMBIN TIME 16.8 seconds (11.9-14.5)
[2022-06-21 14:45] LABS: HIV 1&2 AB SCREEN NON-REACTIVE (NONREACTIVE)
[2022-06-21 16:30] VITALS: BP 140/56
[2022-06-21] MEDS ORDERED: TRELEGY ELLIPT1 EACH (17:32)
[2022-06-21] MEDS ORDERED: ELIQUIS5 MG PO (17:32)
[2022-06-21] MEDS ORDERED: PREDNISONE20 MG PO (17:32)
[2022-06-21] MEDS ORDERED: AMIODARONE HCL200 MG PO (17:32)
[2022-06-21] MEDS ORDERED: PROVENTIL HFA6.7 GM INH (17:32)
[2022-06-21] MEDS ORDERED: BUDESONIDE0.5 MG/2 M NEB (17:32)
[2022-06-21] MEDS ORDERED: IPRATROPIU0.2 MG/1 M INH (17:32)
[2022-06-21] MEDS ORDERED: CLONIDINE HCL0.1 MG PO (17:32)
[2022-06-21] MEDS ORDERED: ENTRESTO 24 MG1 EACH PO (17:32)
[2022-06-21] MEDS ORDERED: ALBUTEROL0.63 MG/3 NEB (17:32)
[2022-06-21] MEDS ORDERED: NORVASC5 MG PO (17:32)
[2022-06-21] MEDS ORDERED: SPIRONOLACTONE25 MG PO (17:32)
[2022-06-21] MEDS: BUDESONIDE 0.5MG/2 ML NEB NEB SCH (21:50)
[2022-06-21 21:51] VITALS: BP 107/46
[2022-06-21 21:53] VITALS: BP 107/46
[2022-06-21 22:00] VITALS: BP 107/46
[2022-06-22] VITALS (8 sets, daily range): BP systolic 111–142; BP diastolic 52–60
[2022-06-22 06:15] LABS: BASOPHILS # (AUTO) 0.1 (0.0-0.1); EOSINOPHILS # (AUTO) 0.1 (0.0-0.4); EOSINOPHILS % 2.9 % (0.0-6.0); HEMATOCRIT 35.3 % (34.2-44.1); HEMOGLOBIN 11.3 g/dL (12.0-16.0); LYMPHOCYTES # (AUTO) 0.7 (1.0-3.2); LYMPHOCYTES % 13.5 % (18.0-39.1); MEAN CORPUSCULAR HEMOGLOBIN 30.5 pg (28-32); MEAN CORPUSCULAR VOLUME 95.1 fL (81-99); MONOCYTES # (AUTO) 0.6 (0.2-0.8); MONOCYTES % 11.5 % (4.4-11.3); NEUTROPHILS # (AUTO) 3.5 (2.1-6.9); NEUTROPHILS % 70.7 % (38.7-80.0); PLATELET COUNT 223 x10e3/uL (140-360); RED BLOOD COUNT 3.71 x10e6/uL (3.6-5.1); RED CELL DISTRIBUTION WIDTH 13.8 % (11.7-14.4)
[2022-06-22 06:52] LABS: ALBUMIN 2.8 g/dL (3.5-5.0); ALBUMIN/GLOBULIN RATIO 0.9 (0.8-2.0); ANION GAP 13.7 mmol/L (8-16); CALCIUM 8.2 mg/dL (8.4-10.2); CREATININE, SERUM 1.07 mg/dL (0.57-1.11); POTASSIUM 4.7 mmol/L (3.5-5.1)
[2022-06-22] MEDS ORDERED: BUDESONIDE/FORMOTEROL 160/4.5MCG INHALER INH SCH (07:00)
[2022-06-22] MEDS: BUDESONIDE 0.5MG/2 ML NEB NEB SCH ×2 (07:11→20:20)
[2022-06-22] MEDS: IPRATROPIUM BROMIDE 0.02% 2.5 ML NEB INH SCH ×2 (07:11→17:00)
[2022-06-22] MEDS: AMLODIPINE BESYLATE 5 MG TAB PO SCH (09:27)
[2022-06-22] MEDS: SPIRONOLACTONE 25 MG TAB PO SCH (09:27)
[2022-06-22] MEDS: AMIODARONE HCL 200 MG TAB PO SCH (09:27)
[2022-06-22] MEDS: VALSARTAN/SACUBITRIL 24MG/26MG 1 EA TAB PO SCH ×2 (09:27→17:11)
[2022-06-22] MEDS: APIXAB 2.5 MG TABLET PO SCH ×2 (10:30→17:11)
[2022-06-22] MEDS ORDERED: SODIUM CHLORIDE 0.9% 250ML 250 ML ONE (11:41)
[2022-06-23] VITALS: BP 124/58
[2022-06-23 04:00] VITALS: BP 135/52
[2022-06-23] MEDS: IPRATROPIUM BROMIDE 0.02% 2.5 ML NEB INH SCH (07:00)
[2022-06-23] MEDS: BUDESONIDE 0.5MG/2 ML NEB NEB SCH (07:05)
[2022-06-23 08:33] VITALS: BP 135/52
[2022-06-23] MEDS: VALSARTAN/SACUBITRIL 24MG/26MG 1 EA TAB PO SCH (09:02)
[2022-06-23] MEDS: SPIRONOLACTONE 25 MG TAB PO SCH (09:02)
[2022-06-23] MEDS: APIXAB 2.5 MG TABLET PO SCH (09:02)
[2022-06-23] MEDS: AMIODARONE HCL 200 MG TAB PO SCH (09:02)
[2022-06-23] MEDS: AMLODIPINE BESYLATE 5 MG TAB PO SCH (09:02)
[2022-06-23 09:16] VITALS: BP 141/53
[2022-06-23 12:33] VITALS: BP 153/54
== END 2022-06-23 12:58 | disposition hospice, home (50) | DRG 65 ==
LOC: ER 09:25 → ERHOLD 12:10 → MED/SURG2 14:16
PROVIDERS: ADMIT Family Medicine Adult Medicine; ATTEND Family Medicine Adult Medicine
DX: I63.9 Cerebral infarction, unspecified (principal); C34.90 Malignant neoplasm of unspecified part of unspecified bronchus or lung; E87.1 Hypo-osmolality and hyponatremia; I13.0 Hypertensive heart and chronic kidney disease with heart failure and stage 1 through stage 4 chronic kidney disease, or unspecified chronic kidney disease; I50.20 Unspecified systolic (congestive) heart failure; N17.9 Acute kidney failure, unspecified; J96.11 Chronic respiratory failure with hypoxia; N39.0 Urinary tract infection, site not specified; C79.9 Secondary malignant neoplasm of unspecified site; D68.59 Other primary thrombophilia; N18.30 Chronic kidney disease, stage 3 unspecified; I48.91 Unspecified atrial fibrillation; J44.9 Chronic obstructive pulmonary disease, unspecified; E78.5 Hyperlipidemia, unspecified; K21.9 Gastro-esophageal reflux disease without esophagitis; F32.A Depression, unspecified; M54.9 Dorsalgia, unspecified; G89.29 Other chronic pain; M19.90 Unspecified osteoarthritis, unspecified site; I44.7 Left bundle-branch block, unspecified; R29.700 NIHSS score 0; Z99.81 Dependence on supplemental oxygen; Z88.2 Allergy status to sulfonamides; Z20.822 Contact with and (suspected) exposure to COVID-19; Z59.6 Low income; Z66 Do not resuscitate; Z87.891 Personal history of nicotine dependence; Z79.01 Long term (current) use of anticoagulants
CPT/HCPCS: 0223U; 36415; 70450; 70551; 71045; 74176; 76705; 80053; 80329; 81001; 82550; 83605; 83880; 84443; 84484; 85025; 85610; 87040; 87390; 87529; 93005; 93880; 93970; 94640; 94799; 99285; G0433; G0435; J0696; J7030; J7050